=== PATIENT | female | born 1955 | race Caucasian/White ===

== ENCOUNTER → 2021-06-13 04:05 | Outpatient (CLI) | payer MEDICARE, SELFPAY ==
[2021-06-13 12:40] LABS: Influenza Control Positive
[2021-06-13 19:27] LABS: SARS-CoV-2 RNA PCR Negative
== END ==
PROVIDERS: PCP Internal Medicine; Visit Provider Internal Medicine
DX: R68.89 Other general symptoms and signs (principal); Z20.822 Contact with and (suspected) exposure to COVID-19
CPT/HCPCS: 87804; C9803; U0003; U0005

== ENCOUNTER → 2022-08-24 14:41 | Outpatient (CLI) | payer MEDICARE, SELFPAY ==
--- NOTE | ~2022-08-24 | MM_ITS ---
EXAMINATION: MM screening alisa BI w gordon HISTORY: Screening mammogram TECHNIQUE: Craniocaudal and mediolateral oblique 3-D tomosynthesis images were obtained and synthetic 2-D images were generated. Bilateral rotated lateral CC views. CAD analysis was submitted and inter preted. COMPARISON: No prior mammogram is available for comparison at this institution. BREAST PARENCHYMAL COMPOSITION: The breasts are extremely dense, which lowers the sensitivity of mamm ography. FINDINGS: There is no evidence of suspicious mass, calcification, or architectural distortion to sugg est malignancy in either breast. There has been no suspicious interval change. IMPRESSION: 1. No mammographic evidence of malignancy. 2. Recommend routine screening mammography in one year. Close correlation with physical examination is important considering the very dense fibroglandular stroma. Ultrasound examination may be of melisa tional benefit. BI-RADS Category 1: Negative Reviewed, dictated and finalized at location A. HOMETRIC EXAMINER IMPRESSION: 1. No mammographic evidence of malignancy. 2. Recommend routine screening mammography in one year. Close correlation with physical examination is important considering the very dense fibroglandular st guilherme. Ultrasound examination may be of additional benefit. BI-RADS Category 1: Negative
== END ==
PROVIDERS: PCP Internal Medicine; Visit Provider Nurse Practitioner
DX: Z12.31 Encounter for screening mammogram for malignant neoplasm of breast (principal)
CPT/HCPCS: 77063; 77067

== ENCOUNTER 2022-10-12 10:51 | Emergency (ER) | payer MEDICARE, SELFPAY ==
--- NOTE | 2022-10-12 10:56 | ED.FEMALEGU ---
HPI - Female Genitourinary General Chief complaint: Urogenital-Female Stated complaint: UTI SYMPTOMS Time Seen by Provider: 10/12/22 11:18 Source: patient and RN notes reviewed Mode of arrival: ambulatory Limitations: no limitations History of Present Illness HPI Narrative: 67-year-old female presents with concern for dysuria, frequency and hematuria. Reports symptoms started on . She denies back pain, abdominal pain, nausea, vomiting, fever, aches, chills. She denies taking any [id number]-dge-ftocbjo medications for her symptoms MD elicited complaint: UTI Related Data Home Medications Medication Instructions Recorded Confirmed cholecalciferol (vitamin D3) 50 2,000 unit PO DAILY 06/21/19 04/15/22 mcg (2,000 unit) tablet duloxetine 60 mg capsule,delayed 60 mg PO DAILY 06/21/19 04/15/22 release lamotrigine 100 mg tablet 100 mg PO DAILY 06/21/19 04/15/22 multivitamin (Daily Multi-Vitamin 1 tablet PO DAILY 11/24/19 04/15/22 tablet) bupropion HCl 150 mg 24 hr tablet, 150 mg PO QAM 10/06/21 04/15/22 extended release methylphenidate HCl 18 mg 18 mg PO DIRECTED 10/12/22 10/12/22 tablet,extended release 24 hr Allergies Allergy/AdvReac Type Severity Reaction Status Date / Time Penicillins Allergy Unknown Hives Verified 10/12/22 11:10 Review of Systems Review of Systems: CONSTITUTIONAL: Denies malaise, chills, sweats, or fever. CARDIOVASCULAR: Denies chest pain, palpitations, or edema. RESPIRATORY: Denies cough or dyspnea. GASTROINTESTINAL: Denies abdominal pain, nausea, vomiting, diarrhea GENITOURINARY: Reports dysuria, frequency, hematuria. Denies urgency, suprapubic pressure. Denies flank pain SKIN: Denies rash or itching. MUSCULOSKELETAL: Denies back pain or myalgia. All systems reviewed & are unremarkable except as noted in HPI and below PMFSH Past Medical History Medical History (Updated 10/12/22 @ 11:26 by Annamarie Hutton NP) Cubital tunnel syndrome on left Family History Family History Father Hypertension Sibling Family history of lupus erythematosus Family history of malignant neoplasm of breast in first degree relative Mother Family history of mental disorder Patient's mother is in good health Other Family history of elevated blood lipids Family history of multiple sclerosis Social History Social History Smoking packs per day: 1 Smoking cigarettes per day: 20.0 Years smoked: 12 Smoking pack-years: 12.00 Smoking status: Former smoker Second hand tobacco smoke exposure: No Smoking end date: 07/05/87 Alcohol intake: never Substance use: former Substance use type: marijuana Other substance usage details: had to stop in order to get Adderall Last use: end of January Comments At time of signature, agree with nursing past medical, surgical, social and family history. There is no relevant family history pertinent to the presenting complaint Exam Narrative: GENERAL: Well-appearing, well-nourished, and in no acute distress. HEAD: Normocephalic. EYES: PERRLA, conjunctivae clear. NECK: Supple. No lymphadenopathy CHEST: Clear to auscultation. No respiratory distress. HEART: Regular rate and rhythm. ABDOMEN: Soft, nontender upon palpation, nondistended, normal active bowel sounds, no palpable or pulsatile masses, no guarding. No CVA tenderness SKIN: Warm, dry, no rash. NEURO: Alert and oriented x3. PSYCH: Normal mood and affect Course Course Emergency Course: Patient is aware of diagnosis, understands and agrees to treatment plan. Anticipatory guidance given. Patient agrees to follow-up as directed and is aware of reasons to seek care at the emergency department. Portions of this record may have been created with voice recognition software Level of Care: Express Care Visit Vital Signs Vital signs: Reviewed. SHARMAINE - F
[2022-10-12 11:08] VITALS: BP 131/88; PULSE 76; RESP 16; TEMP 36.8; O2SAT 100
== END 2022-10-12 11:34 | disposition home or self-care (01) ==
PROVIDERS: Emergency Provider Nurse Practitioner; PCP Internal Medicine
DX: R30.0 Dysuria (principal); R35.0 Frequency of micturition; R31.9 Hematuria, unspecified; Z87.891 Personal history of nicotine dependence
CPT/HCPCS: 81003; 87086; 99213; G0463

== ENCOUNTER 2023-02-01 12:02 | Emergency (ER) | payer MEDICARE, SELFPAY ==
--- NOTE | ~2023-02-01 | XR_ITS ---
EXAMINATION: XR lumbar spine 2-3V DATE: 02/01/2023 12:38 INDICATION: Right lower back pain one week post fall TECHNIQUE: Anteroposterior and lateral views of the lumbar spine, and cone-down lateral view of the l umbosacral junction were obtained. COMPARISON: CT abdomen pelvis dated 03/16/2015 FINDINGS: Mild thoracolumbar levocurvature. Additional unchanged mild lower lumbar levocurvature. Sagittal alig nment is normal. Age-indeterminate L1 compression fracture with superior endplate depression resultin g one third vertebral body height loss. Severe disc height loss at L4-L5. Moderate disc height loss a t L5-S1 and T8-T9 through T11-T12. Mild disc height loss at L3-L4. Mild bilateral sacroiliac osteoart hritis. Visualized lung bases are clear. IMPRESSION: 1. Age-indeterminate L1 compression fracture with one third vertebral body height loss. 2. Moderate lower thoracic and severe lower lumbar spondylosis. Reviewed, dictated and finalized at location B. IMPRESSION: 1. Age-indeterminate L1 compression fracture with one third vertebral body heig ht loss. 2. Moderate lower thoracic and severe lower lumbar spondylosis.
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
[2023-02-01 12:17] VITALS: BP 124/85; PULSE 70; RESP 16; TEMP 36.4; O2SAT 99
== END 2023-02-01 14:04 | disposition home or self-care (01) ==
PROVIDERS: Emergency Provider Registered Nurse; PCP Family Medicine
DX: S32.019A Unspecified fracture of first lumbar vertebra, initial encounter for closed fracture (principal); S39.012A Strain of muscle, fascia and tendon of lower back, initial encounter; W19.XXXA Unspecified fall, initial encounter; Y93.19 Activity, other involving water and watercraft; Z87.891 Personal history of nicotine dependence; I10 Essential (primary) hypertension; E78.2 Mixed hyperlipidemia; G35 Multiple sclerosis; F90.9 Attention-deficit hyperactivity disorder, unspecified type; F32.A Depression, unspecified; M81.8 Other osteoporosis without current pathological fracture
CPT/HCPCS: 72100; 99213; G0463

== ENCOUNTER → 2023-02-05 14:10 | Outpatient (CLI) | payer MEDICARE, SELFPAY ==
--- NOTE | ~2023-02-05 | MR_ITS ---
EXAMINATION: MR lumbar spine wo con DATE: 02/05/2023 14:41 INDICATION: Wedge compression fracture of first lumbar vertebra. Low back pain. TECHNIQUE: Magnetic resonance imaging (MRI) of the lumbar spine was performed without intravenous con trast. Sequences included sagittal T2-weighted FSE, sagittal T2-weighted FS FSE, sagittal T1-weighted FSE, and axial T2-weighted FSE. COMPARISON: Lumbar spine radiographs 02/01/2023, CT abdomen and pelvis 03/16/2015 FINDINGS: There is 6 degrees levocurvature of lumbar spine. There is a burst fracture of L1 with 2/5 loss of height centrally, bone marrow edema, and retropulsion of bone 1 mm into central spinal canal. There is mild chronic anterior wedging of T11 vertebral body. There is severely decreased disc heigh t at T11-T12, L4-L5, and L5-S1 with endplate remodeling. There is mildly decreased disc height at L3- L4. The distal spinal cord signal intensity is normal. The conus medullaris is at L1. The following d isc levels are specifically discussed: L1-L2: The disc does not extend beyond the endplate margin. There is mild bilateral facet joint osteo arthritis. There is no neural foraminal stenosis. There is no central canal stenosis. L2-L3: The disc is mildly bulging. There is moderate bilateral facet joint osteoarthritis. There is m ild bilateral neural foraminal stenosis. There is no central canal stenosis. L3-L4: There is a left foraminal protrusion with annular fissure. There is mild bilateral facet joint osteoarthritis. There is mild left neural foraminal stenosis. There is no central canal stenosis. L4-L5: The disc is bulging. There is moderate bilateral facet joint osteoarthritis. There is mild [place]olina ateral neural foraminal stenosis. There is mild central canal stenosis. L5-S1: The disc is bulging and has an annular fissure. There is severe bilateral facet joint osteoart hritis. There is mild bilateral neural foraminal stenosis. There is mild central canal stenosis. IMPRESSION: 1. Acute/subacute L1 burst fracture, stable from 02/01/2023. 2. Severe lumbar spondylosis. Reviewed, dictated and finalized at location B.
== END ==
PROVIDERS: PCP Family Medicine; Visit Provider Nurse Practitioner
DX: S32.010A Wedge compression fracture of first lumbar vertebra, initial encounter for closed fracture (principal); M43.06 Spondylolysis, lumbar region
CPT/HCPCS: 72148

== ENCOUNTER 2023-05-17 13:51 | Outpatient (CLI) | payer MEDICARE, SELFPAY ==
[2023-05-17 14:49] LABS: Parathyroid Intact 83.5 pg/mL (7.5-53.5)
== END 2023-05-17 13:52 | disposition home or self-care (01) ==
PROVIDERS: PCP Nurse Practitioner; Visit Provider Nurse Practitioner
DX: E83.52 Hypercalcemia (principal)
CPT/HCPCS: 36415; 82330; 83970

== ENCOUNTER 2024-11-13 14:00 | Outpatient (CLI) | payer MEDICARE, SELFPAY ==
--- NOTE | ~2024-11-13 | MM_ITS ---
EXAMINATION: MM screening alisa BI w gordon HISTORY: Screening mammogram, family history of breast cancer in her sister. TECHNIQUE: Craniocaudal and mediolateral oblique 3-D tomosynthesis images were obtained and synthetic 2-D images were generated. CAD analysis was submitted and interpreted. COMPARISON: 08/24/2022 BREAST PARENCHYMAL COMPOSITION:Dense: The breasts are extremely dense, which lowers the sensitivity o f mammography. FINDINGS: No suspicious mass, calcification, or architectural distortion are identified in either daria ast to suggest malignancy. There has been no suspicious interval change. IMPRESSION: No mammographic evidence of malignancy. Recommend routine screening mammography in one year. BI-RADS Category 1: Negative Reviewed, dictated and finalized at location .
--- OUTSIDE RECORDS SUMMARY | 2024-11-13 14:06 | XMS_ITS | Encounter Summary ---
Author Organization [facility] Address [address] [place] [address] Phone Care Team Providers Care Curtain Cleaner Name Role Phone Kailash Webb MD Primary Care Provider [phone] Iban Jeffery MD Primary Care Provider [phone] Higinio Barnes MD Primary Care Provider [phone] Encounter Details Date Type Department Care Team (Latest Contact Info) Description 12/28/2018 Orders Only [facility] Scanning, Provider Social History Tobacco Use Types Packs/Day Years Used Date Smoking Tobacco: Former Smokeless Tobacco: Never Alcohol Use Standard Drinks/Week Comments No 0 (1 standard drink = 0.6 oz pur e alcohol) Comments No Sex and Gender Information Value Date Recorded Sex Assigned at Not on file Legal Sex Female 12:30 AM [employer] Gender Identity Female 03/30/2023 12:11 PM CDT Sexual Orientation Straight 03/30/2023 12 :11 PM CDT documented as of this encounter Plan of Treatment Not on file documented as of this encounter Procedures Procedure Name Priority Date/Time Associated Diagnosis Comments SCAN - LABS 12/28/2018 documented in this encounter Results * SCAN - LABS (12/28/2018) us Provider Scanning Final Result documented in this encounter Visit Diagnoses Not on filedocumented in this encounter Care Teams Curtain Cleaner Relationship Specialty Start Date End Date Kailash Webb MD [address] [place] [address] PCP - General 09/21/17 06/11/19 Iban Jeffery MD [address] [facility] [address] [place] [address] PCP - General 06/12/19 03/07/24 Higinio Barnes MD [address] [facility] [address] [place] [address] PCP - General Family Practice 03/08/24 documented as of this encounter
--- OUTSIDE RECORDS SUMMARY | 2024-11-13 14:06 | XMS_ITS | Patient Health Record ---
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 Role Phone Higinio Barnes MD Primary Care Provider UnavailFrancois Hay Unavailable [phone] Jeri Palafox Unavailable [phone] Arely Sánchez Unavailable [phone] Migration, Provider Unavailable Unavailable Allergies Allergen (clinical drug ingredient) Drug/Non Drug Allergy documented on EMR Reaction Allergy Type Onset Date Status Substance with penicillin structure and antibacterial mechanism of action (substance) Penicillins Unknown Drug Allergy 08/10/2023 Active Results Component Value Reference Range Notes DRUG SCREEN, 14 DRUGS (DETEC TIMED), URINE Reviewed date:11/17/2023 12:00:00 AM Interpretation: Performing Lab: Notes/Report: Amphetamine positive Barbiturates negative Benzodiazipine negative Buprenorphine negative Cocaine negative MDMA/Ectasy negative Methadone negative Methamphetamine negative Morphine negative note +thc +amp Oxycodone negative Phenocyclidine negative THC positive UDT Reviewed date:02/28/2024 11:17:23 AM Interpretation: Performing Lab: Notes/Report: THC Negative 0 - 50 ng/ml Cocaine Negative 0 - 300 ng/ml Amphetamine Negative 0 - 1000 ng/ml Buprenorphine (BUP) Negative 0 - 10 ng/ml Secobarbital (Bar) Negative 0 - 300 ng/ml Oxazepam (BZO) Negative 0 - 300 ng/ml 4-qptkzobofb-5,9-ivdnpmqa-9, 3-diphenylpyrrolidine (EDDP) Negative 0 - 300 ng/ml Methamphetamine (MET) Negative 0 - 1000 ng/ml Methylenedioxymethamphetamine (MDMA) Negative 0 - 500 ng/ml Morphine (MOP 300/[id number]) Negative 0 - 300 ng/ml Methadone (MTD) Negative 0 - 300 ng/ml Phencyclidine (PCP) Negative 0 - 25 ng/ml Nortriptyline (TCA) Negative 0 - 1000 ng/ml Oxycodone Negative 0 - 300 ng/ml x Negative 0 - 300 ng/ml UDT Reviewed date:08/17/2024 01:20:24 PM Interpretation: Performing Lab: Notes/Report: THC P 0 - 50 ng/ml Cocaine N 0 - 300 ng/ml Amphetamine P 0 - 1000 ng/ml Buprenorphine (BUP) N 0 - 10 ng/ml Secobarbital (Bar) N 0 - 300 ng/ml Oxazepam (BZO) N 0 - 300 ng/ml 5-lvwikkmkpw-7,9-rgfbbjhy-2, 3-diphenylpyrrolidine (EDDP) N 0 - 300 ng/ml Methamphetamine (MET) N 0 - 1000 ng/ml Methylenedioxymethamphetamine (MDMA) N 0 - 500 ng/ml Morphine (MOP 300/[id number]) N 0 - 300 ng/ml Methadone (MTD) N 0 - 300 ng/ml Phencyclidine (PCP) N 0 - 25 ng/ml Nortriptyline (TCA) N 0 - 1000 ng/ml Oxycodone N 0 - 300 ng/ml x N 0 - 300 ng/ml Reason For Referral No Information Medications Medication SIG (Take, Route, Frequency, Duration) Notes Start Date End Date Status DULoxetine HCl 60 MG 1 capsule Oral Once a day for 90 days Active buPROPion HCl ER (XL) 150 MG 1 tablet in the morning Oral Once a day for 90 days Active buPROPion HCl ER (XL) 150 MG 1 tablet every morning Oral Once a day for 90 days Active amLODIPine Besylate 2.5 MG Oral 11/17/2023 Active Amphetamine-Dextroamphet ER 15 MG 1 capsule in the morning Orally Once a day for 30 days 10/13/2024 Active Atorvastatin Calcium 20 MG Oral 11/17/2023 Active Losartan Potassium-HCTZ 100-12.5 MG Oral 11/17/2023 Active Famotidine 20 MG Oral 11/17/2023 Ac tive Ibuprofen 600 MG Oral 11/17/2023 Ac tive Forteo 600 MCG/2.4ML as directed Subcutaneous 02/03 Active Amphetamine-Dextroamphet ER 15 MG 1 capsule in the morning Orally Once a day for 30 days 06/12/2024 Active lamoTRIgine 100 MG 1 tablet Oral Once a day for 90 days Active Social History Sex Assigned At : Social History Observation Description Sex Assigned At Female Problems Problem Type SNOMED Code ICD Code Onset Dates Problem Status W/U Status Risk Notes Problem Mild recurrent major depression (29206781) Major depressive disorder, recurrent, mild (F33.0) 4 Active confirmed Problem Generalized anxiety disorder (65581684) Generalized anxiety disorder (F41.1) 4 Active confirmed Problem Attention-defici t hyperactivity disorder, 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 Active confirmed Vital Signs Heart Rate 100 /min 08/17/2024 Height-cm 157.48 cm 08/17/2024 Blood pressure diastolic 73 mm Hg 08/17/2024 Weight-kg 56.25 kg 08/17/2024 Height 62.00 in 08/17/2024 Blood pressure systolic 129 mm Hg 08/17/2024 Weight 124 lbs 08/17/2024 BMI 22.68 kg/m2 08/17/2024 Encounters Encounter Location Date Provider Diagnosis [facility] [address] [place] [address] 11/17/2023 Francois Lopez Generalized anxiety disorder F41.1 ; Major depressive disorder, recurrent, mild F33.0 and Attention-deficit hyperactivity disorder, predominantly inattentive type F90.0 [facility] [address] [place] [address] 02/28/2024 Francois Lopez Generalized anxiety disorder F41.1 ; Major depressive disorder, recurrent, mild F33.0 and Attention-deficit hyperactivity disorder, predominantly inattentive type F90.0 [facility] [address] [place] [address] 05/18/2024 Francois Lopez Generalized anxiety disorder F41.1 ; Major depressive disorder, recurrent, mild F33.0 and Attention-deficit hyperactivity disorder, predominantly inattentive type F90.0 [facility] [address] [place] [address] 08/17/2024 Francois Lopez Benign essential HTN I10 ; Generalized anxiety disorder F41.1 ; Major depressive disorder, recurrent, mild F33.0 and Attention-deficit hyperactivity disorder, predominantly inattentive type F90.0 [facility], [facility] [address] [place] [address] 11/20/2023 Provider Migration [facility], [facility] [address] [place] [address] 11/21/2023 Provider Migration [facility], [facility] [address] [place] [address] 01/04/2024 Francois Lopez [facility], [facility] [address] [place] [address] 01/07/2024 Arely Sánchez [facility], [facility] [address] [place] [address] 01/07/2024 Francois Lopez [facility], [facility] [address] [place] [address] 01/10/2024 Jeri Javy Attention-deficit hyperactivity disorder, unspecified type F90.9 [facility], [facility] [address] [place] [address] 02/08/2024 Francois Lopez Attention-deficit hyperactivity disorder, predominantly inattentive type F90.0 [facility], [facility] [address] [place] [address] 03/09/2024 Francois Lopez Attention-deficit hyperactivity disorder, predominantly inattentive type F90.0 [facility], [facility] [address] [place] [address] 04/07/2024 Francois Lopez Attention-deficit hyperactivity disorder, predominantly inattentive type F90.0 [facility], [facility] [address] [place] [address] 05/09/2024 Francois Lopez Attention-deficit hyperactivity disorder, predominantly inattentive type F90.0 [facility], [facility] [address] [place] [address] 06/09/2024 Francois Lopez Attention-deficit hyperactivity disorder, predominantly inattentive type F90.0 [facility], [facility] [address] [place] [address] 07/13/2024 Jeri Javy Attention-deficit hyperactivity disorder, predominantly inattentive type F90.0 [facility] [employer] [facility] [address] [place] [address] 08/14/2024 Francois Lopez Attention-deficit hyperactivity disorder, predominantly inattentive type F90.0 [facility] [address] [place] [address] 09/11/2024 Francois Lopez Attention-deficit hyperactivity disorder, predominantly inattentive type F90.0 [facility] [address] [place] [address] 10/13/2024 Francois Hernandeza Attention-deficit hyperactivity disorder, predominantly inattentive type F90.0 Assessments Encounter Date Diagnosis (ICD Code) Assessment Notes Treatment Notes Treatment Clinical Notes Section Notes 04/07/2024 Attention-defici t hyperactivity disorder, predominantly inattentive type (ICD-10 - F90.0) 05/09/2024 Attention-defici t hyperactivity disorder, predominantly inattentive type (ICD-10 - F90.0) 06/09/2024 Attention-defici t hyperactivity disorder, predominantly inattentive type (ICD-10 - F90.0) 07/13/2024 Attention-defici t hyperactivity disorder, predominantly inattentive type (ICD-10 - F90.0) 08/14/2024 Attention-defici t hyperactivity disorder, predominantly inattentive type (ICD-10 - F90.0) 02/28/2024 Generalized anxiety disorder (ICD-10 - F41.1) stable 1. ADHD: - Patient reports improvement in focus and reduced feelings of depression with Adderall XR 15 mg daily. Plan: - Continue Adderall XR 15 mg daily. No refill needed at this time. 2. Anxiety: - Patient experiences more anxiety than depression, worrying about things they cannot control and second-guessi ng themselves. Plan: - Monitor anxiety levels during follow-up visits. Consider discussing non-pharmacol ogical interventions such as therapy or relaxation techniques if needed. 3. Major Depressive Disorder: - Patient is currently on Bupropion XL 150 mg, Duloxetine 60 mg, and Lamotrigine 100 mg daily. Plan: - Continue current medications. Refill Bupropion XL 150 mg, Duloxetine 60 mg, and Lamotrigine 100 mg prescriptions . 4. Sleep: - Patient reports sleeping well but identifies as a night owl. Plan: - Encourage maintaining good sleep hygiene and discuss any sleep concerns during follow-up visits. Follow-up: - Schedule a three-month follow-up visit to assess the patient's progress, medication effectiveness , and address any concerns. 05/18/2024 Generalized anxiety disorder (ICD-10 - F41.1) stable 1. Depression and Anxiety: - Patient reports feeling well mood-coelho and has not experienced significant depression or anxiety recently. - Current medications: Bupropion XL 150 mg daily, Duloxetine 60 mg daily, Lamotrigine 100 mg daily. Plan: - Continue current medications as they seem to be effective. - Monitor patient's mood and anxiety levels during follow-up visits. 2. ADHD: - Patient reports that Adderall XR 15 mg is working well for ADHD symptoms. Plan: - Continue Adderall XR 15 mg as prescribed. - Monitor patient's response to medication and any potential side effects during follow-up visits. 3. Recent physical injuries (shoulder, arm, knee): - Patient reports having had therapy for shoulder issues and a recent fall resulting in minor injuries to the arm and knee. Plan: - Encourage patient to continue any recommended physical therapy or home exercises for shoulder recovery. - Monitor patient's progress and pain levels during follow-up visits. 4. Medication refills: Plan: - Refill Bupropion XL 150 mg and Duloxetine 60 mg prescriptions . - Send refills to [facility] in [place]. 5. Follow-up: Plan: - Schedule a follow-up appointment to monitor patient's mood, anxiety, ADHD symptoms, and progress with physical injuries. - Adjust treatment plan as needed based on patient's progress and any new concerns that may arise. 08/17/2024 Benign essential HTN (ICD-10 - I10) 09/11/2024 Attention-defici t hyperactivity disorder, predominantly inattentive type (ICD-10 - F90.0) 10/13/2024 Attention-defici t hyperactivity disorder, predominantly inattentive type (ICD-10 - F90.0) 03/09/2024 Attention-defici t hyperactivity disorder, predominantly inattentive type (ICD-10 - F90.0) 11/17/2023 Major depressive disorder, recurrent, mild (ICD-10 - F33.0) 11/17/2023 Generalized anxiety disorder (ICD-10 - F41.1) 11/17/2023 Attention-defici t hyperactivity disorder, predominantly inattentive type (ICD-10 - F90.0) 01/10/2024 Attention-defici t hyperactivity disorder, unspecified type (ICD-10 - F90.9) 02/08/2024 Attention-defici t hyperactivity disorder, predominantly inattentive type (ICD-10 - F90.0) 02/28/2024 Major depressive disorder, recurrent, mild (ICD-10 - F33.0) stable cont lamotrigine 100mg 1 tablet at bedtime , duloxetine 60mg daily, bupropion xl 150mg daily Plasma concentrations and pharmacologic effects of duloxetine may be increased by strong CYP2D6 inhibitors (eg, buPROPion HCl ER (XL) Oral Tablet Extended Release 24 Hour 150 MG). 1. ADHD: - Patient reports improvement in focus and reduced feelings of depression with Adderall XR 15 mg daily. Plan: - Continue Adderall XR 15 mg daily. No refill needed at this time. 2. Anxiety: - Patient experiences more anxiety than depression, worrying about things they cannot control and second-guessi ng themselves. Plan: - Monitor anxiety levels during follow-up visits. Consider discussing non-pharmacol ogical interventions such as therapy or relaxation techniques if needed. 3. Major Depressive Disorder: - Patient is currently on Bupropion XL 150 mg, Duloxetine 60 mg, and Lamotrigine 100 mg daily. Plan: - Continue current medications. Refill Bupropion XL 150 mg, Duloxetine 60 mg, and Lamotrigine 100 mg prescriptions . 4. Sleep: - Patient reports sleeping well but identifies as a night owl. Plan: - Encourage maintaining good sleep hygiene and discuss any sleep concerns during follow-up visits. Follow-up: - Schedule a three-month follow-up visit to assess the patient's progress, medication effectiveness , and address any concerns. 08/17/2024 Generalized anxiety disorder (ICD-10 - F41.1) stable 05/18/2024 Major depressive disorder, recurrent, mild (ICD-10 - F33.0) stable cont lamotrigine 100mg 1 tablet at bedtime , duloxetine 60mg daily, bupropion xl 150mg daily Plasma concentrations and pharmacologic effects of duloxetine may be increased by strong CYP2D6 inhibitors (eg, buPROPion HCl ER (XL) Oral Tablet Extended Release 24 Hour 150 MG). 1. Depression and Anxiety: - Patient reports feeling well mood-coelho and has not experienced significant depression or anxiety recently. - Current medications: Bupropion XL 150 mg daily, Duloxetine 60 mg daily, Lamotrigine 100 mg daily. Plan: - Continue current medications as they seem to be effective. - Monitor patient's mood and anxiety levels during follow-up visits. 2. ADHD: - Patient reports that Adderall XR 15 mg is working well for ADHD symptoms. Plan: - Continue Adderall XR 15 mg as prescribed. - Monitor patient's response to medication and any potential side effects during follow-up visits. 3. Recent physical injuries (shoulder, arm, knee): - Patient reports having had therapy for shoulder issues and a recent fall resulting in minor injuries to the arm and knee. Plan: - Encourage patient to continue any recommended physical therapy or home exercises for shoulder recovery. - Monitor patient's progress and pain levels during follow-up visits. 4. Medication refills: Plan: - Refill Bupropion XL 150 mg and Duloxetine 60 mg prescriptions . - Send refills to [facility] in [place]. 5. Follow-up: Plan: - Schedule a follow-up appointment to monitor patient's mood, anxiety, ADHD symptoms, and progress with physical injuries. - Adjust treatment plan as needed based on patient's progress and any new concerns that may arise. 02/28/2024 Attention-defici t hyperactivity disorder, predominantly inattentive type (ICD-10 - F90.0) Adderall xr 15mg daily 1. ADHD: - Patient reports improvement in focus and reduced feelings of depression with Adderall XR 15 mg daily. Plan: - Continue Adderall XR 15 mg daily. No refill needed at this time. 2. Anxiety: - Patient experiences more anxiety than depression, worrying about things they cannot control and second-guessi ng themselves. Plan: - Monitor anxiety levels during follow-up visits. Consider discussing non-pharmacol ogical interventions such as therapy or relaxation techniques if needed. 3. Major Depressive Disorder: - Patient is currently on Bupropion XL 150 mg, Duloxetine 60 mg, and Lamotrigine 100 mg daily. Plan: - Continue current medications. Refill Bupropion XL 150 mg, Duloxetine 60 mg, and Lamotrigine 100 mg prescriptions . 4. Sleep: - Patient reports sleeping well but identifies as a night owl. Plan: - Encourage maintaining good sleep hygiene and discuss any sleep concerns during follow-up visits. Follow-up: - Schedule a three-month follow-up visit to assess the patient's progress, medication effectiveness , and address any concerns. 08/17/2024 Major depressive disorder, recurrent, mild (ICD-10 - F33.0) stable cont lamotrigine 100mg 1 tablet at bedtime , duloxetine 60mg daily, bupropion xl 150mg daily Plasma concentrations and pharmacologic effects of duloxetine may be increased by strong CYP2D6 inhibitors (eg, buPROPion HCl ER (XL) Oral Tablet Extended Release 24 Hour 150 MG). 05/18/2024 Attention-defici t hyperactivity disorder, predominantly inattentive type (ICD-10 - F90.0) Adderall xr 15mg daily 1. Depression and Anxiety: - Patient reports feeling well mood-coelho and has not experienced significant depression or anxiety recently. - Current medications: Bupropion XL 150 mg daily, Duloxetine 60 mg daily, Lamotrigine 100 mg daily. Plan: - Continue current medications as they seem to be effective. - Monitor patient's mood and anxiety levels during follow-up visits. 2. ADHD: - Patient reports that Adderall XR 15 mg is working well for ADHD symptoms. Plan: - Continue Adderall XR 15 mg as prescribed. - Monitor patient's response to medication and any potential side effects during follow-up visits. 3. Recent physical injuries (shoulder, arm, knee): - Patient reports having had therapy for shoulder issues and a recent fall resulting in minor injuries to the arm and knee. Plan: - Encourage patient to continue any recommended physical therapy or home exercises for shoulder recovery. - Monitor patient's progress and pain levels during follow-up visits. 4. Medication refills: Plan: - Refill Bupropion XL 150 mg and Duloxetine 60 mg prescriptions . - Send refills to [facility] in [place]. 5. Follow-up: Plan: - Schedule a follow-up appointment to monitor patient's mood, anxiety, ADHD symptoms, and progress with physical injuries. - Adjust treatment plan as needed based on patient's progress and any new concerns that may arise. 08/17/2024 Attention-defici t hyperactivity disorder, predominantly inattentive type (ICD-10 - F90.0) Adderall xr 15mg daily 08/17/2024 Other 1. Anxiety: - No significant changes in anxiety symptoms - Currently on duloxetine 60 mg daily Plan: - Continue current medication regimen - Encourage the patient to practice relaxation techniques and engage in regular physical activity - Reassess anxiety symptoms at the next visit 2. Depression: - No significant depressive symptoms reported - Currently on lamotrigine 100 mg daily Plan: - Continue current medication regimen - Monitor for any changes in mood or new symptoms at the next visit 3. Sleep disturbance: - Likely related to a recent cold Plan: - Encourage the patient to practice good sleep hygiene and monitor for any persistent sleep issues - Reassess sleep quality at the next visit 4. ADHD: - Patient reports good response to Adderall XR 15 mg daily Plan: - Continue current medication regimen - Monitor for any changes in symptoms or side effects at the next visit 6. Positive THC on UDS: - Patient reports last use around New Year's Plan: - Send the sample for confirmation testing - Remind the patient of the clinic's policy regarding stimulant prescriptions and cannabis use - Monitor for any changes in substance use at the next visit Follow-up: - Schedule a follow-up appointment in 3 months to reassess the patient's overall health and response to treatment Plan Of Treatment Next Appt Details Provider Name:Francois granados, 11/23/2024 11:45:00 AM, [address] [facility] [address], [place], [address], Insurance Providers Payer Name Payer Address Payer Phone Subscriber Number Group Number Insured Name Patient Relationship to Insured Coverage Start Date Coverage End Date Medicare-I l Medicare [address] [place] [address] [id number] MEGHAN JUNG Self - patient is the insured [employer] [employer] [address] [place] [address] [id number] MEGHAN JUNG Self - patient is the insured Medical (General) History Medical History History ICD Code Problems: Attention deficit hyperactivit y disorder Attention deficit hyperactivity disorder , predominantly inattentive type Generalized anxiety disorder Long-term current use of drug therapy Long-term drug therapy Mild recurrent major depression , Surgical History Surgery Date(Month/Year) Other
--- OUTSIDE RECORDS SUMMARY | 2024-11-13 14:06 | XMS_ITS | Clinical Summary ---
Author Organization [facility] Address [address] Attn: Teresita Prelusera [place]T [place] [address] Care Team Providers Care Supply Chain Assistant Name Role Phone Unavailable Primary Care Provider Unavailabl e Allergies Active Allergy Reactions Criticality Noted Date Comments Penicillins Unknown 11/16/2021 Medications buPROPion HCL (WELLBUTRIN XL) 150 mg Extended Release 24 hour tablet Take 1 Tablet (150 mg) by mouth daily in the morning. 30 Tablet 3 05/09/2022 12:20 PM CDT 2 Active DULoxetine (Cymbalta) 60 mg Capsule, Delayed Release(E.C.) Take 1 Capsule (60 mg) by mouth daily. 30 Capsule 3 02/05/2022 12:48 PM CDT 2 Active lamoTRIgine (LaMICtal) 100 mg tablet Take 1 Tablet (100 mg) by mouth daily. 30 Tablet 3 05/26/2022 11:59 AM BLEMISH REMOVER 2 Active buPROPion HCL (WELLBUTRIN XL) 150 mg Extended Release 24 hour tablet Take 1 Tablet (150 mg) by mouth daily in the morning. 30 Tablet 3 10/02/2022 2:50 PM CDT 2 Active DULoxetine (Cymbalta) 60 mg Capsule, Delayed Release(E.C.) Take 1 Capsule (60 mg) by mouth daily. 30 Capsule 3 04/21/2022 5:20 PM CDT 2 Active losartan-hydroC HLOROthiazide (HYZAAR) 100-12.5 mg tablet Take 1 Tablet by mouth daily. 90 Tablet 1 07/02/2022 12:11 PM BLEMISH REMOVER 2 Active buPROPion HCL (WELLBUTRIN XL) 150 mg Extended Release 24 hour tablet Take 1 Tablet (150 mg) by mouth daily in the morning. 30 Tablet 3 04/28/2023 2:43 PM CDT 2 Active DULoxetine (CYMBALTA) 60 mg Capsule, Delayed Release(E.C.) Take 1 Capsule (60 mg) by mouth daily. 30 Capsule 3 08/16/2022 12:21 PM BLEMISH REMOVER 2 Active lamoTRIgine (LaMICtal) 100 mg tablet Take 1 Tablet (100 mg) by mouth daily. 30 Tablet 3 08/25/2022 3:31 PM BLEMISH REMOVER 2 Active amphetamine-dex troamphetamine (ADDERALL XR) 15 mg Extended Release 24 hour capsule Take 1 Capsule (15 mg) by mouth daily in the morning. 30 Capsule 3 Active methylphenidate HCl (Concerta) 18 mg Extended Release tablet Take 1 Tablet (18 mg) by mouth daily in the morning. Max Daily Amount: 18 mg 30 Tablet 08/30/2022 12:40 PM BLEMISH REMOVER 3 Active amLODIPine (NORVASC) 2.5 mg tablet Take 1 Tablet (2.5 mg) by mouth daily. 90 Tablet 1 3 Active atorvastatin (LIPITOR) 20 mg tablet TAKE ONE TABLET BY MOUTH ONCE DAILY 90 Tablet 1 3 Active amLODIPine (NORVASC) 2.5 mg tablet Take 1 Tablet (2.5 mg) by mouth daily. 90 Tablet 1 3 Active atorvastatin (LIPITOR) 20 mg tablet Take 1 Tablet (20 mg) by mouth daily. 90 Tablet 1 3 Active ibuprofen (MOTRIN) 600 mg tablet Take 1 Tablet (600 mg) by mouth 3 times daily as needed for pain. TAKE WITH FOOD. 90 Tablet 1 01/10/2023 3:55 PM CDT 3 Active buPROPion HCL (WELLBUTRIN XL) 150 mg Extended Release 24 hour tablet Take 1 Tablet (150 mg) by mouth daily in the morning. 30 Tablet 1 12/06/2022 1:03 PM CDT 3 Active amphetamine-dex troamphetamine (ADDERALL XR) 15 mg Extended Release 24 hour capsule Take 1 Capsule (15 mg) by mouth daily in the morning. 30 Capsule 3 Active amphetamine-dex troamphetamine (ADDERALL XR) 15 mg Extended Release 24 hour capsule Take 1 capsule every day by oral route in the morning for 30 days. 30 Capsule 11/07/2022 11:56 AM CDT 3 Active buPROPion HCL (WELLBUTRIN XL) 150 mg Extended Release 24 hour tablet Take 1 Tablet (150 mg) by mouth daily in the morning. 30 Tablet 3 01/31/2023 2:15 PM CDT 3 Active estradioL (ESTRACE) 0.01% (0.1 mg/g) vaginal cream Insert 1 gram vaginally twice weekly. 42.5 Gram 5 3 Active losartan-hydroC HLOROthiazide (HYZAAR) 100-12.5 mg tablet TAKE ONE TABLET BY MOUTH ONCE DAILY 90 Tablet 1 3 Active losartan-hydroC HLOROthiazide (HYZAAR) 100-12.5 mg tablet TAKE ONE TABLET BY MOUTH ONCE DAILY 90 Tablet 1 07/22/2023 2:57 PM BLEMISH REMOVER 3 Active cyclobenzaprine (FLEXERIL) 10 mg tablet Take 1 Tablet (10 mg) by mouth 2 times daily as needed for muscle spasm; do not drive while taking. 20 Tablet 02/01/2023 2:27 PM CDT 3 Active dextroamphetami ne-amphetamine (AdderalL) 10 mg tablet TAKE 1 TABLET BY MOUTH ONCE DAILY BEFORE BREAKFAST 30 Tablet 02/17/2023 4:29 PM CDT 3 Active dextroamphetami ne-amphetamine (AdderalL) 5 mg tablet TAKE 1 TABLET BY MOUTH IN THE EVENING 30 Tablet 02/17/2023 4:29 PM CDT 3 Active amLODIPine (NORVASC) 2.5 mg tablet Take 1 Tablet (2.5 mg) by mouth daily. 90 Tablet 1 07/12/2023 9:27 AM BLEMISH REMOVER 3 Active atorvastatin (LIPITOR) 20 mg tablet TAKE ONE TABLET BY MOUTH ONCE DAILY 90 Tablet 1 07/12/2023 9:27 AM BLEMISH REMOVER 3 Active DULoxetine (CYMBALTA) 60 mg Capsule, Delayed Release(E.C.) Take 1 Capsule (60 mg) by mouth daily. 90 Capsule 1 07/28/2023 2:15 PM BLEMISH REMOVER 3 Active ibuprofen (MOTRIN) 600 mg tablet Take 1 Tablet (600 mg) by mouth 3 times daily as needed for pain. TAKE WITH FOOD 90 Tablet 1 08/17/2023 2:45 PM BLEMISH REMOVER 3 Active buPROPion HCL (WELLBUTRIN XL) 150 mg Extended Release 24 hour tablet Take 1 Tablet (150 mg) by mouth daily in the morning. 30 Tablet 3 07/12/2023 9:27 AM BLEMISH REMOVER 3 Active lamoTRIgine (LaMICtal) 100 mg tablet Take 1 Tablet (100 mg) by mouth daily. 30 Tablet 3 07/22/2023 2:57 PM BLEMISH REMOVER 3 Active buPROPion HCL (WELLBUTRIN XL) 150 mg Extended Release 24 hour tablet Take 1 Tablet (150 mg) by mouth daily in the morning. 30 Tablet 3 10/08/2023 2:20 PM CDT 4 Active ibuprofen (MOTRIN) 600 mg tablet Take 1 Tablet (600 mg) by mouth 3 times daily as needed for pain. Take with food. 90 Tablet 1 11/23/2023 1:29 PM CDT 4 Active amphetamine-dex troamphetamine (ADDERALL XR) 15 mg Extended Release 24 hour capsule Take 1 Capsule (15 mg) by mouth daily in the morning. Max Daily Amount: 15 mg 30 Capsule 01/07/2024 5:22 PM CDT 4 Active amphetamine-dex troamphetamine (ADDERALL XR) 15 mg Extended Release 24 hour capsule Take 1 Capsule (15 mg) by mouth daily. Max Daily Amount: 15 mg 30 Capsule 4 Active amphetamine-dex troamphetamine (ADDERALL XR) 15 mg Extended Release 24 hour capsule Take 1 Capsule (15 mg) by mouth daily in the morning. Max Daily Amount: 15 mg 30 Capsule 4 Active amphetamine-dex troamphetamine (ADDERALL XR) 15 mg Extended Release 24 hour capsule Take 1 Capsule (15 mg) by mouth daily in the morning. Max Daily Amount: 15 mg 30 Capsule 4 Active clobetasoL (TEMOVATE) 0.05 % Ointment Apply topically 2 (two) times a day 30 Gram 1 02/24/2024 12:55 PM CDT 4 Active amphetamine-dex troamphetamine (ADDERALL XR) 15 mg Extended Release 24 hour capsule Take 1 Capsule (15 mg) by mouth daily in the morning. Max Daily Amount: 15 mg 30 Capsule 03/10/2024 3:36 PM CDT 4 Active buPROPion HCL (WELLBUTRIN XL) 150 mg Extended Release 24 hour tablet Take 1 Tablet (150 mg) by mouth daily in the morning. 90 Tablet 1 04/02/2024 12:06 PM CDT 4 Active buPROPion HCL (WELLBUTRIN XL) 150 mg Extended Release 24 hour tablet Take 1 Tablet (150 mg) by mouth daily in the morning. 90 Tablet 1 07/26/2024 3:46 PM BLEMISH REMOVER 4 Active DULoxetine (CYMBALTA) 60 mg Capsule, Delayed Release(E.C.) Take 1 Capsule (60 mg) by mouth daily. 90 Capsule 1 07/03/2024 3:43 PM BLEMISH REMOVER 4 Active lamoTRIgine (LaMICtal) 100 mg tablet Take 1 Tablet (100 mg) by mouth daily. 90 Tablet 1 08/22/2024 12:25 PM BLEMISH REMOVER 4 Active famotidine (PEPCID) 20 mg tablet Take 1 Tablet (20 mg) by mouth 2 times daily. 180 Tablet 1 09/07/2024 8:08 AM BLEMISH REMOVER 4 Active buPROPion HCL (WELLBUTRIN XL) 150 mg Extended Release 24 hour tablet Take 1 Tablet (150 mg) by mouth daily in the morning. 90 Tablet 1 5 Active lamoTRIgine (LaMICtal) 100 mg tablet Take 1 Tablet (100 mg) by mouth daily. 90 Tablet 1 5 Active DULoxetine (CYMBALTA) 60 mg Capsule, Delayed Release(E.C.) Take 1 Capsule (60 mg) by mouth daily. 90 Capsule 1 09/27/2024 7:15 PM CDT 5 Active amLODIPine (NORVASC) 2.5 mg tablet Take 1 Tablet (2.5 mg) by mouth daily. 90 Tablet 1 09/27/2024 7:15 PM CDT 5 Active atorvastatin (LIPITOR) 20 mg tablet TAKE ONE TABLET BY MOUTH ONCE DAILY 90 Tablet 1 09/27/2024 7:15 PM CDT 5 Active losartan-hydroC HLOROthiazide (HYZAAR) 100-12.5 mg tablet TAKE ONE TABLET BY MOUTH ONCE DAILY 90 Tablet 1 09/27/2024 7:15 PM CDT 5 Active amphetamine-dex troamphetamine (ADDERALL XR) 15 mg Extended Release 24 hour capsule Take 1 Capsule (15 mg) by mouth daily in the morning. Max Daily Amount: 15 mg 30 Capsule 10/13/2024 4:34 PM CDT 5 Active Social History Tobacco Use Types Packs/Day Years Used Date Smoking Tobacco: Never Assessed Comments Unknown Sex and Gender Information Value Date Recorded Sex Assigned at Not on file Legal Sex Female 3:27 PM CDT Gender Identity Not on file Sexual Orientation Not on file Plan of Treatment Health Maintenance Due Date Last Done Comments DTAP/TDAP/TD VACCINES (1 - Tdap) 1975 BREAST CANCER SCREENING 1996 COLORECTAL SCREENING 2001 Colorectal Cancer Screening 2001 FIT-DNA Q 3 years 2001 FIT/FOBT Q 1 year 2001 Flex Sig/CT Colonography Q 5 years 2001 PNEUMOCOCCAL VACCINE 50+ YEARS (1 of 1 - PCV) 08/11/19 07 ZOSTER VACCINE (1 of 2) 2006 OSTEOPOROSIS SCREENING 2021 INFLUENZA VACCINE (#1) 2024 RSV VACCINE (60+ or ) (1 - 1-dose 75+ series) 2031 Insurance RX [employer] (INTERNAL) [facility] RX [employer] RX Member Subscriber Plan / Payer (Ef fective 2024-Present) Name:Meena Klein Relation to Subscriber:Self Name:Meena Klein Subscriber ID:Not on file Payer ID:Not on file Group ID:[id number] Type:RX Commercial Address: [place]
--- OUTSIDE RECORDS SUMMARY | 2024-11-13 14:06 | XMS_ITS | Continuity of Care Document ---
Author Organization [facility] Address [address] [place] [address] [address] [place] [address] Phone Care Team Providers Care College Scouting Coordinator Name Role Phone Vazquez OD, Erickson Unavailable Unavailable Procedures Procedure Date Eye Exam & Treatment Refraction Advance Directives Directive Yes / No Effective Date File Name No Information Encounters Encounter Description Practice Location Reason(s) For Visit Diagnoses Date Provider Providers Copied on Encounter [facility], [address] [place] [address] [address], [place], [place], [id number], [place] tel:[phone] [facility] No Information Sep- 1-200 8 Vazquez OD Erickson. [address] , [address], [place], [address], [place]. tel:[phone] Family History Family Member Type Diagnosis Age [...]
--- OUTSIDE RECORDS SUMMARY | 2024-11-13 14:06 | XMS_ITS | Encounter Summary ---
Author Organization [facility] Address [address] [place] [address] Phone Care Team Providers Care Dishwasher Preparer Name Role Phone Kailash Webb MD Primary Care Provider [phone] Iban Jeffery MD Primary Care Provider [phone] Higinio Barnes MD Primary Care Provider [phone] Encounter Details Date Type Department Care Team (Latest Contact Info) Description 08/29/2018 Orders Only [facility] Scanning, Provider Social History Tobacco Use Types Packs/Day Years Used Date Smoking Tobacco: Former Smokeless Tobacco: Never Alcohol Use Standard Drinks/Week Comments No 0 (1 standard drink = 0.6 oz pur e alcohol) Comments No Sex and Gender Information Value Date Recorded Sex Assigned at Not on file Legal Sex Female 12:30 AM PAPER STEAMER Gender Identity Female 03/30/2023 12:11 PM CDT Sexual Orientation Straight 03/30/2023 12 :11 PM CDT documented as of this encounter Plan of Treatment Not on file documented as of this encounter Procedures Procedure Name Priority Date/Time Associated Diagnosis Comments SCAN - LABS 08/29/2018 documented in this encounter Results * SCAN - LABS (08/29/2018) us Provider Scanning Final Result documented in this encounter Visit Diagnoses Not on filedocumented in this encounter Care Teams Dishwasher Preparer Relationship Specialty Start Date End Date Kailash Webb MD [address] [place] [address] PCP - General 09/21/17 06/11/19 Iban Jeffery MD [address] [facility] [address] [place] [address] PCP - General 06/12/19 03/07/24 Higinio Barnes MD [address] [facility] [address] [place] [address] PCP - General Family Practice 03/08/24 documented as of this encounter
--- OUTSIDE RECORDS SUMMARY | 2024-11-13 14:06 | XMS_ITS | Referral Summary ---
Author Organization [facility] Address [address] [place] [address] Care Team Providers Care Rn Vascular Name Role Phone Higinio Barnes MD Primary Care Provider [phone] Encounters Date Type Department Care Team Description 10/10/2024 11:00 AM CDT Office Visit [facility] Multiple Sclerosis [address] [facility] 7[address] [place] [phone] René cMmullen MD Multiple sclerosis (HCC) (Primary Dx); Urinary urgency; Neurogenic bladder; Other fatigue 10/02/[address] [place] [address] Rock Neely MD from Last 3 Months Allergies Active Allergy Reactions Criticality Noted Date Comments Penicillins Rash Medium 07/16/2009 Medications atorvastatin (LIPITOR) 20 mg tablet 8 Active ADDERALL XR 15 mg 24 hr capsule [address] (CYMBALTA) 60 mg capsule 8 Active ibuprofen (ADVIL,MOTRIN) 600 mg tablet 8 Active lamoTRIgine (LaMICtal) 100 mg tablet 1.5 tablets (150 mg total) 8 Active multivitamin tabletIndications :Vitamin Deficiency Prevention Active cholecalciferol (VITAMIN D-3) 2000 unit capsule Ac tive famotidine (PEPCID) 20 mg tablet Take 1 tablet (20 mg total) by mouth 2 (two) times a day Active losartan-hydroCHL OROthiazide (HYZAAR) 100-12.5 mg per tablet 0 Active buPROPion XL (WELLBUTRIN XL) 150 mg 24 hr tablet Take 1 tablet by mouth every morning 1 Active amLODIPine (NORVASC) 2.5 mg tablet 2 Active dextroamphetamine -amphetamine (ADDERALL) 10 mg tablet 3 Active dextroamphetamine -amphetamine (ADDERALL) 5 mg tablet 3 Active pen needle, diabetic 31 gauge x 09/17 needle Use one needle daily with Forteo pen 100 each 3 3 Active clobetasoL (TEMOVATE) 0.05 % ointment Apply topically 2 (two) times a day 30 g 1 4 Active Forteo 20 mcg/dose (600mcg/2.4mL) injectionIndicati ons:Other osteoporosis without current pathological fracture Inject 0.08 mL (20 mcg total) under the skin daily 7.2 mL 3 4 04/13/20 25 Active Active Problems Problem Noted Date Diagnosed Date Compression fracture of L1 vertebra with routine healing 02/24/2024 Overview (02/24/2024): Fragility 02/2023 Cauda equina compression 02/11/2023 Overview (02/11/2023): -SUSPECTED- Based on symptoms reported during bone health evaluation Assessment & Plan (02/11/2023 2:31 PM CDT): She needs immediate evaluation. Explained to pt and and once I heard the saddle anesthesia and bowel symptoms we terminated the visit and placed in wc and sent to ER. Vaccine refused by parent 05/01/2021 Overview (05/01/2021): She declines the COVID-19 vaccine and flu shot and pneumonia shots Carpal tunnel syndrome of left wrist 09/27/2018 Well woman exam with routine gynecological exam 05/23/2018 Cervical pain (neck) 09/21/2017 Other osteoporosis without current pathological fracture 01/12/2017 Overview (02/24/2024): Bone Health Evaluation Contributing to this is the MS and we started RIS 150/mo for a 5-yr plan. 2016- 2021 But now the BMD dropped so Transition to ZOL 2022 fragility Fxr. Started TPTD 11/25 Assessment & Plan (02/24/2024 10:48 AM CDT): Continue TPTD, ca and D Assessment & Plan (02/11/2023 2:33 PM CDT): BMD slightly lower, we put visit on hold given the GUSTAVO Assessment & Plan (05/01/2021 2:30 PM CDT): We see the persistant very reduced BMD in Spine. Not much movement after 1 ZOL Rx--we wiol give another and see back 1 yr Assessment & Plan (04/25/2020 3:15 PM CDT): Start ZOL Assessment & Plan (04/13/2019 3:09 PM CDT): The T-score is still -2.5 after 2 yrs in spine flat too in the hip Assessment & Plan (03/17/2018 3:23 PM CDT): The bone mass is up sharply in the spine and about the same in the hip. We will CPM Postmenopausal status 05/20/2016 Urinary incontinence 03/20/2012 Urinary urgency 03/20/2012 Neoplasm 08/31/2011 Fatigue 09/02/2010 Multiple sclerosis 09/02/2010 Neurogenic bladder 09/02/2010 Social History Tobacco Use Types Packs/Day Years Used Date Smoking Tobacco: Former Smokeless Tobacco: Never Tobacco Cessation:Counseling Given: Not Answered Alcohol Use Standard Drinks/Week Comments No 0 (1 standard drink = 0.6 oz pur e alcohol) Personal Safety Answer Date Recorded Have you ever been in or are you currently in a harmful physical or emotional relationship or is someone making you feel afraid or unsafe? 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 Gender Identity Female 03/30/2023 12:11 PM CDT Sexual Orientation Straight 03/30/2023 12 :11 PM CDT Last Filed Vital Signs Vital Sign Reading Time Taken Comments Blood Pressure 149/80 05/03/2024 11:37 AM CDT Pulse 94 05/03/2024 11:37 AM CDT Temperature 37.4 C (99.3 F) 02/28/2024 12:28 PM CDT Respiratory Rate 20 02/28/2024 12:28 PM CDT Oxygen Saturation 97% 02/28/2024 12:28 PM CDT Inhaled Oxygen Concentration - - Weight 56.7 kg (125 lb) 05/11/2024 4:40 PM FISH HATCHERY LABORER Height 157.5 cm (5' 2 ) 05/11/2024 4:40 PM FISH HATCHERY LABORER Body Mass Index 22.86 05/11/2024 4:40 PM FISH HATCHERY LABORER Plan of Treatment Not on file Medical Devices Implanted Type Area Sas Statistical Programmer Device Identifier Shelf Expiration Date Model / Serial / Lot Vascular Access Power Port Chest Wall Procedures Procedure Name Priority Date/Time Associated Diagnosis Comments DEXA TBS AXIAL SKELETON BONE DENSITY 1 OR MORE SITES Schedule Routine, Read Routine (OP Routine) 02/24/2024 9:32 AM CDT Other osteoporosis without current pathological fracture SCREENING MAMMOGRAM BILATERAL W NUNO Schedule Routine, Read Routine (OP Routine) 06/23/2021 8:51 AM FISH HATCHERY LABORER Encounter for screening mammogram for malignant neoplasm of breast COLONOSCOPY Routine 07/05/2014 from Last 3 Months or Most Recently Relevant to Health Maintenance Results * Dexa TBS Axial Skeleton Bone Density 1 or more sites (02/24/2024 9:32 AM CDT) Anatomical Region Laterality Modality Wrist, Body N/A Radiographic Alessia ging Narrative 02/24/2024 9:46 AM CDT Patient Name: Meena Klein Date of : 1955 Date of scan: 02/24/2024 Bone mineral density was performed on a [email or web address] Discovery Densitometer. Based on machine cross-calibration and precision studies the least significant changes of this densitometer is 0.024 g/cm2 at the spine, 0.020 g/cm2 at the total proximal femur, and 0.014g/cm2 at the forearm. HISTORY: This is a 68 y.o. postmenopausal female with a history of osteoporosis and vitamin D deficiency. She reports that she has quit smoking. She has never used smokeless tobacco. Currently on treatment with vitamin D and teriparatide (Forteo), previously treated with zoledronic acid (Reclast), hormone replacement therapy, and Risedronate, and current complaint of arm pain. INDICATIONS: Menopause status, treatment monitoring, history of prior vertebral fracture, vitamin D deficiency, and history of osteoporosis. FINDINGS: BONE MINERAL DENSITY OF THE LUMBAR SPINE Bone Mineral Density (BMD) of the lumbar spine was measured from L2-L4 and the average density was calculated to be 0.720 gm/cm2. This corresponds to a T-score (standard deviations from the mean of young adults) of -3.3. When compared to the previous study of 02/11/23 there has been no significant changes in bone density. BONE MINERAL DENSITY OF THE PROXIMAL FEMUR Bone Mineral Density (BMD) of the left hip total was found to be 0.684 gm/cm2. This corresponds to a T-score standard deviations from the mean of young adults of -2.1. Femoral neck is 0.548 gm/cm2 with a T-score (standard deviations from the mean of young adults) of -2.7. When compared to the previous study of 02/11/23 there has been no significant changes in bone density. SUMMARY: Bone mineral density shows evidence of osteoporosis and marked increase risk of fracture. There has been no significant changes in bone density since previous measurement. L1 excluded from bone mineral density analysis of the lumbar spine because of bone density being more than 1 standard deviation discrepant relative to one adjacent vertebra. Clinical correlation is recommended. The lumbar spine Trabecular Bone Score is 1.091 which suggests degraded bone microarchitecture compared to the general population. Final decisions regarding diagnostic or therapeutic recommendations should include BMD, TBS, additional clinical risk factors as well the clinical context of the patient. Please see attached TBS results for further details. ADDITIONAL COMMENTS: Postmenopausal Women and Men Over 50: Diagnostic criteria: Osteoporosis: BMD at or below -2.5 T-score; Osteopenia (low bone mass): BMD between -1.0 and -2.5 T-score. If the patient has a history of a fragility fracture, a fracture that occurred with trauma equivalent to a fall from a standing position or less, then the diagnosis is osteoporosis regardless of bone density. The history and data sections of the bone mineral density scan were prepared by Marisela Conteh who is accredited by the International Society of Clinical Densitometry. The overall patient assessment and scan interpretation were performed by Rock Neely M.D. who is certified by the International Society of Clinical Densitometry. [id number] us Rock Neely MD IMG DXA PROCEDURES Final Resul t * Screening Mammogram Bilateral W Unno (06/23/2021 8:51 AM FISH HATCHERY LABORER) Anatomical Region Laterality Modality Breast Bilateral Mammography Narrative 06/24/2021 7:45 AM FISH HATCHERY LABORER Mammogram Technique: Bilateral Digital Breast Tomosynthesis, Bilateral C-view 2D Screening mammogram. Views obtained: bilateral craniocaudal and bilateral mediolateral oblique. Computer Aided Detection was performed. Mammogram Findings: The present examination has been compared to prior imaging studies performed at [facility] on 06/20/2018, and at [facility] on 06/20/2019 and 06/21/2020. The breasts are extremely dense, which lowers the sensitivity of mammography. There is no suspicious abnormality in either breast. Impression: There is no mammographic evidence of malignancy. Annual screening mammography is recommended. OVERALL FINAL ASSESSMENT: BI-RADS CATEGORY 1: Negative. Procedure Note Tram Ramos MD - 06/24/2021 Mammogram Technique: Bilateral Digital Breast Tomosynthesis, Bilateral C-view 2D Screening mammogram. Views obtained: bilateral craniocaudal and bilateral mediolateral oblique. Computer Aided Detection was performed. Mammogram Findings: The present examination has been compared to prior imaging studies performed at [facility] on 06/20/2018, and at [facility] on 06/20/2019 and 06/21/2020. The breasts are extremely dense, which lowers the sensitivity of mammography. There is no suspicious abnormality in either breast. Impression: There is no mammographic evidence of malignancy. Annual screening mammography is recommended. OVERALL FINAL ASSESSMENT: BI-RADS CATEGORY 1: Negative. Swathi Herbert MD IMG MAMMO PROCEDURES Fi nal Result * COLONOSCOPY (07/05/2014) Colonoscopy Normal Historical Provider HEALTH MAINTENANCE Final Result from Last 3 Months or Most Recently Relevant to Health Maintenance Insurance MEDICARE [facility] MEDICARE SUPPLEMENT MEDICARE ANTH ACCESS CHOICE MEDICARE [facility] MEDICARE SUPPLEMENT Care Teams Rn Vascular Relationship Specialty Start Date End Date Higinio Barnes MD PCP - General Family Practice 03/08/24
--- OUTSIDE RECORDS SUMMARY | 2024-11-13 14:06 | XMS_ITS | Encounter Summary ---
Author Organization [facility] Address [address] 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 Gender Identity Female 03/30/2023 12:11 PM CDT Sexual Orientation Straight 03/30/2023 12 :11 PM CDT documented as of this encounter Plan of Treatment Not on file documented as of this encounter Procedures Procedure Name Priority Date/Time Associated Diagnosis Comments SCAN - LABS 11/03/2023 documented in this encounter Results * SCAN - LABS (11/03/2023) us Provider Scanning Final Result documented in this encounter Visit Diagnoses Not on filedocumented in this encounter Care Teams Dental Sales Representative Relationship Specialty Start Date End Date Iban Jeffery MD [address] [place] [address] PCP - General 06/12/19 03/07/24 Higinio Barnes MD [address] [place] [address] PCP - General Family Practice 03/08/24 documented as of this encounter
--- OUTSIDE RECORDS SUMMARY | 2024-11-13 14:07 | XMS_ITS | Clinical Summary ---
Author Organization [facility] Address [address] [place] [address] Care Team Providers Care Director Government Name Role Phone Higinio Barnes MD Primary Care Provider [phone] Allergies Active Allergy Reactions Criticality Noted Date [...] 09/02/2010 Multiple sclerosis 09/02/2010 Neurogenic bladder 09/02/2010 Encounters Date Type Department Care Team Description 10/10/2024 11:00 AM CDT Office Visit [facility] Multiple Sclerosis [address] 7th [place] [address] René Mcmullen MD Multiple sclerosis (HCC) (Primary Dx); Urinary urgency; Neurogenic bladder; Other fatigue 10/02/2024 Telephone [facility] [address] [facility] [address] [place] [address] Rock Neely MD from Last 3 Months Surgical History Surgery Date Site/Laterality Comments ORAL SURGERY Oral Surgery - (Added by TW Conv) FOOT SURGERY Foot Surgery - (Added by TW Conv) Medical History Medical History Date Comments Personal history of diseases of skin or subcutaneous tissue History of hidradenitis supp urativa - (Added by TW Conv) Personal history of other be nign neoplasm History of uterine leiomyoma - (Added by TW Conv) Low grade squamous intraepit helial lesion on cytologic smear of cervix (LGSIL) Papanicolaou smear of cervix with low grade squamous intraepithelial lesion (LGSIL) - (Added by TW Conv) Other constipation Chronic const ipation - (Added by TW Conv) Neuromuscular dysfunction of bladder Neurogenic bladder - (Added by TW Conv) Personal history of other me ntal and behavioral disorders History of depression - (Add ed by TW Conv) Encounter for screening for other suspected endocrine disorder Screening for endocrine/metabolic/immunity disorders - (Added by TW Conv) Personal history of other sp ecified conditions History of headache - (Added by TW Conv) 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 Encounter for long-term (current) use of medications - (Added by TW Conv) 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, soft tissue, and skin Neoplasm of skin - (Added by TW Conv) Other symptoms and signs inv olving cognitive functions and awareness Cognitive changes - (Added by TW Conv) Personal history of other sp ecified conditions History of balance disorder - (Added by TW Conv) Multiple sclerosis (HCC) Multipl e sclerosis - (Added by TW Conv) Urgency of urination Urinary urg ency - (Added by TW Conv) ADHD (attention deficit hype ractivity disorder) Anxiety Depression Infectious viral hepatitis 1973 Neuromuscular disorder (HCC) Osteoporosis Family History Medical History Relation Name Comments Hypertension Father Family history of hypertension - (Added by TW Conv) Mental illness Mother Chronic menta l illness - (Added by TW Conv) Breast cancer Mother's Sister 1 Breast Ca ncer - (Added by TW Conv) Breast cancer Mother's Sister 2 Family hi story of malignant neoplasm of breast - (Added by TW Conv) Lupus Other Family history of systemic lupus erythematosus - (Added by TW Conv) Osteoporosis Other Breast cancer Sister 1 Family history of malignant neoplasm of breast - (Added by TW Conv) Osteoporosis Sister 2 Family history of osteoporosis - (Added by TW Conv) Hip fracture Neg Hx Relation Name Status Comments Father Mother Mother's Sister 1 Mother's Sister 2 Other Sister 1 Sister 2 Social History Tobacco Use Types Packs/Day Years [...] on file 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 Gender Identity Female 03/30/2023 12:11 PM CDT Sexual Orientation Straight 03/30/2023 12 :11 PM CDT Obstetrics History Para Term AB IAB SAB Ectopic Multiple Livin g Live Births 1 1 1 1 1 Date Outcome GA Total Labor Labor/2nd/3rd Weight Sex Type Anes PTL Kirti A1 A5 Name Clin 1984 Term M Vag-S pont Living Last Filed Vital Signs Vital Sign Reading Time Taken Comments Blood Pressure 149/80 05/03/2024 11:37 AM CDT Pulse 94 05/03/2024 11:37 AM CDT Temperature 37.4 C (99.3 F) 02/28/2024 12:28 PM CDT Respiratory Rate 20 02/28/2024 12:28 PM CDT Oxygen Saturation 97% 02/28/2024 12:28 PM CDT Inhaled Oxygen Concentration - - Weight 56.7 kg (125 lb) 05/11/2024 4:40 PM FOOD ASSEMBLER Height 157.5 cm (5' 2 ) 05/11/2024 4:40 PM FOOD ASSEMBLER Body Mass Index 22.86 05/11/2024 4:40 PM FOOD ASSEMBLER Plan of Treatment Health Maintenance Due Date Last Done Comments Depression Screening 1955 Fall Risk Assessment 1955 Hepatitis C Screening 1955 DTaP/Tdap/Td Vaccine (1 - Tdap) 1967 Hepatitis B Screening 1974 Pneumococcal vaccine 65+ (1 of 1 - PCV) 2006 Zoster Vaccine (1 of 2) 2006 Well Visit 65+ 12/31/2021 12/31/2020, 01/2020, 05/23/2018 Breast Cancer Screening-Mammogram 06/23/2022 06/23/2021, 06/21/2020, 06/20/2019, Additional history exists Colon Cancer Screening-Colonoscopy 07/05/2024 07/05/2014 Influenza Vaccine (Season Ended) 2025 Osteoporosis Screening-Bone Density Scan 02/23/2026 02/24/2024, 02/11/2023, 05/01/2021, Additional history exists Colon Cancer Screening-CT Colonography Discontinued 07/05/2014 Colon Cancer Screening-DNA Stool Discontinued 07/05/19 15 Colon Cancer Screening-FIT Discontinued 07/05/2014 Colon Cancer Screening-Sigmoidoscopy Discontinued 07/05/2014 Medical Devices Implanted Type Area Printing Assistant Device Identifier Shelf Expiration Date Model / [...] Read Routine (OP Routine) 06/23/2021 8:51 AM FOOD ASSEMBLER Encounter for screening mammogram for malignant neoplasm of breast HM COLONOSCOPY Routine 07/05/2014 from Last 3 Months [...] Bone mineral density was performed on a [employer] Discovery Densitometer. Based on machine cross-calibration and [...] by the International Society of Clinical Densitometry. [id number] us Rock Neely MD IMG DXA PROCEDURES Final Resul t * Screening Mammogram Bilateral W Nuno (06/23/2021 8:51 AM FOOD ASSEMBLER) Anatomical Region Laterality Modality Breast Bilateral Mammography Narrative 06/24/2021 7:45 AM FOOD ASSEMBLER Mammogram Technique: Bilateral Digital Breast Tomosynthesis, Bilateral C-view 2D Screening mammogram. Views obtained: bilateral craniocaudal and bilateral mediolateral oblique. Computer Aided Detection was performed. Mammogram Findings: The present examination has been compared to prior imaging studies performed at [facility] on 06/20/2018, and at [facility] on 06/20/2019 and 06/21/2020. The breasts [...] compared to prior imaging studies performed at [facility] on 06/20/2018, and at [facility] on 06/20/2019 and 06/21/2020. The breasts [...] Recently Relevant to Health Maintenance Insurance MEDICARE [facility] MEDICARE SUPPLEMENT MEDICARE [place] ACCESS CHOICE MEDICARE [facility] MEDICARE SUPPLEMENT Care Teams Director Government Relationship Specialty Start Date End Date Higinio Barnes MD PCP - General Family Practice 03/08/24
--- OUTSIDE RECORDS SUMMARY | 2024-11-13 14:07 | XMS_ITS | Encounter Summary ---
Author Organization [facility] Address [address] [place] [address] Care Team Providers Care Screw Machine Operator Name Role Phone Iban Jeffery MD Primary Care Provider [phone] Higinio Barnes MD Primary Care Provider [phone] Encounter Details Date Type Department Care Team (Late st Contact Info) Description 03/24/[address] 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
== END 2024-11-13 14:01 | disposition home or self-care (01) ==
LOC: CHSIMG 14:01
PROVIDERS: PCP Family Medicine; Visit Provider Family Medicine
DX: Z12.31 Encounter for screening mammogram for malignant neoplasm of breast (principal)
CPT/HCPCS: 77063; 77067

== ENCOUNTER 2024-11-30 02:09 | Day surgery (SDC) | payer MEDICARE, SELFPAY ==
[2024-11-23 13:17] VITALS: BMI 23.4
--- OUTSIDE RECORDS SUMMARY | 2024-11-30 02:12 | XMS_ITS | Encounter Summary ---
Author Organization 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
--- OUTSIDE RECORDS SUMMARY | 2024-11-30 02:12 | XMS_ITS | Clinical Summary ---
Author Organization [email or web address] Address [address] [facility] [address] [address] Attn: Teresita Prelusera [place] [address] Care Team Providers Care Associate Media Planner Name Role Phone Unavailable Primary Care Provider [...] daily. 30 Tablet 3 05/26/2022 11:59 AM BENCH WORKER APPRENTICE 2 Active buPROPion HCL (WELLBUTRIN XL) 150 [...] daily. 90 Tablet 1 07/02/2022 12:11 PM BENCH WORKER APPRENTICE 2 Active buPROPion HCL (WELLBUTRIN XL) 150 mg Extended Release 24 hour tablet Take 1 Tablet (150 mg) by mouth daily in the morning. 30 Tablet 3 04/28/2023 2:43 PM CDT 2 Active DULoxetine (CYMBALTA) 60 mg Capsule, Delayed Release(E.C.) Take 1 Capsule (60 mg) by mouth daily. 30 Capsule 3 08/16/2022 12:21 PM BENCH WORKER APPRENTICE 2 Active lamoTRIgine (LaMICtal) 100 mg tablet Take 1 Tablet (100 mg) by mouth daily. 30 Tablet 3 08/25/2022 3:31 PM BENCH WORKER APPRENTICE 2 Active amphetamine-dex troamphetamine (ADDERALL XR) 15 mg Extended Release 24 hour capsule Take 1 Capsule (15 mg) by mouth daily in the morning. 30 Capsule 3 Active methylphenidate HCl (Concerta) 18 mg Extended Release tablet Take 1 Tablet (18 mg) by mouth daily in the morning. Max Daily Amount: 18 mg 30 Tablet 08/30/2022 12:40 PM BENCH WORKER APPRENTICE 3 Active amLODIPine (NORVASC) 2.5 mg tablet [...] DAILY 90 Tablet 1 07/22/2023 2:57 PM BENCH WORKER APPRENTICE 3 Active cyclobenzaprine (FLEXERIL) 10 mg tablet [...] daily. 90 Tablet 1 07/12/2023 9:27 AM BENCH WORKER APPRENTICE 3 Active atorvastatin (LIPITOR) 20 mg tablet TAKE ONE TABLET BY MOUTH ONCE DAILY 90 Tablet 1 07/12/2023 9:27 AM BENCH WORKER APPRENTICE 3 Active DULoxetine (CYMBALTA) 60 mg Capsule, Delayed Release(E.C.) Take 1 Capsule (60 mg) by mouth daily. 90 Capsule 1 07/28/2023 2:15 PM BENCH WORKER APPRENTICE 3 Active ibuprofen (MOTRIN) 600 mg tablet Take 1 Tablet (600 mg) by mouth 3 times daily as needed for pain. TAKE WITH FOOD 90 Tablet 1 08/17/2023 2:45 PM BENCH WORKER APPRENTICE 3 Active buPROPion HCL (WELLBUTRIN XL) 150 mg Extended Release 24 hour tablet Take 1 Tablet (150 mg) by mouth daily in the morning. 30 Tablet 3 07/12/2023 9:27 AM BENCH WORKER APPRENTICE 3 Active lamoTRIgine (LaMICtal) 100 mg tablet Take 1 Tablet (100 mg) by mouth daily. 30 Tablet 3 07/22/2023 2:57 PM BENCH WORKER APPRENTICE 3 Active buPROPion HCL (WELLBUTRIN XL) 150 [...] daily in the morning. 90 Tablet 1 11/28/2024 3:05 PM CDT 4 Active DULoxetine (CYMBALTA) 60 mg Capsule, Delayed Release(E.C.) Take 1 Capsule (60 mg) by mouth daily. 90 Capsule 1 07/03/2024 3:43 PM BENCH WORKER APPRENTICE 4 Active lamoTRIgine (LaMICtal) 100 mg tablet Take 1 Tablet (100 mg) by mouth daily. 90 Tablet 1 08/22/2024 12:25 PM BENCH WORKER APPRENTICE 4 Active famotidine (PEPCID) 20 mg tablet Take 1 Tablet (20 mg) by mouth 2 times daily. 180 Tablet 1 09/07/2024 8:08 AM BENCH WORKER APPRENTICE 4 Active buPROPion HCL (WELLBUTRIN XL) 150 mg Extended Release 24 hour tablet Take 1 Tablet (150 mg) by mouth daily in the morning. 90 Tablet 1 5 Active lamoTRIgine (LaMICtal) 100 mg tablet Take 1 Tablet (100 mg) by mouth daily. 90 Tablet 1 11/23/2024 2:24 PM CDT 5 Active DULoxetine (CYMBALTA) 60 mg Capsule, [...] Max Daily Amount: 15 mg 30 Capsule 11/14/2024 11:38 AM CDT 5 Active lamoTRIgine (LaMICtal) 100 mg tablet Take 1 Tablet (100 mg) by mouth daily. 90 Tablet 1 5 Active amphetamine-dex troamphetamine (ADDERALL XR) 15 mg Extended Release 24 hour capsule Take 1 Capsule (15 mg) by mouth daily in the morning. Max Daily Amount: 15 mg 30 Capsule 10/13/2024 4:34 PM CDT 5 11/14/19 25 Discontinu ed(Reorder ) Social History Tobacco Use Types Packs/Day Years [...] fective 2024-Present) Name:Meena Klein Relation to Subscriber:Self Name:JarrellMeena meredith Subscriber ID:Not on file Payer ID:Not on file Group ID:[id number] Type:RX Commercial Address: [place]
--- OUTSIDE RECORDS SUMMARY | 2024-11-30 02:12 | XMS_ITS | Encounter Summary ---
Author Organization [facility] Address [address] [place] [address] Phone Care Team Providers Care Import Coordination And Production Head Name Role Phone Kailash Webb MD Primary Care Provider [phone] Iban Jeffery MD Primary Care Provider [phone] Higinio Barnes MD Primary Care Provider [phone] Encounter Details Date Type Department Care Team [...] on file Legal Sex Female 12:30 AM CSW Gender Identity Female 03/30/2023 12:11 PM CDT [...] on filedocumented in this encounter Care Teams Import Coordination And Production Head Relationship Specialty Start Date End Date Kailash Webb MD [address] [place] [address] PCP - General 09/21/17 06/11/19 Iban Jeffery MD [address] [facility] [address] [place] [address] PCP - General 06/12/19 03/07/24 Higinio Barnes MD [address] [facility] [address] [place] [address] PCP - General Family Practice 03/08/24 documented as of this encounter
--- OUTSIDE RECORDS SUMMARY | 2024-11-30 02:13 | XMS_ITS | Encounter Summary ---
Author Organization 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
--- OUTSIDE RECORDS SUMMARY | 2024-11-30 02:13 | XMS_ITS | Continuity of Care Document ---
Author Organization [facility] Address [address] [place] [address] [address] [place] [address] Phone Care Team Providers Care Commercial Credit Officer Name Role Phone Vazquez OD, Erickson Unavailable Unavailable Procedures Procedure Date Eye Exam & Treatment Refraction Advance Directives Directive Yes / No Effective Date File Name No Information Encounters Encounter Description Practice Location Reason(s) For Visit Diagnoses Date Provider Providers Copied on Encounter [facility], [address] [place] [address] [address], [place], [place], [id number], [place] tel:[phone] [facility] No Information Sep- 1-200 8 Vazquez OD Erickson. [address] , [address], [place], [address], [place]. tel:[phone] Family History Family Member Type Diagnosis Age At Onset No Information Payers Payer name Insurance type Covered alliance party ID Authoriza tion(s) No Information Social History [...]
--- OUTSIDE RECORDS SUMMARY | 2024-11-30 02:13 | XMS_ITS | Clinical Summary ---
Author Organization [facility] Healthcare Address [address] [place] [address] Care Team Providers Care Stained Glass Artist Name Role Phone Higinio Barnes MD Primary Care Provider [phone] Allergies Active Allergy Reactions Criticality Noted Date [...] Visit [facility] Multiple Sclerosis [address] [facility] 7th [place] [address] René Mcmullen MD Multiple sclerosis (HCC) (Primary Dx); Urinary urgency; Neurogenic bladder; Other fatigue 10/02/2024 Telephone [facility] [address] [facility] [address] [place] [address] Rock Neely MD from Last [...] headache - (Added by TW Conv) 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 coordinator (current) drug therapy Encounter for long-term (current) [...] on file Legal Sex Female 12:30 AM TERRITORY REPRESENTATIVE Gender Identity Female 03/30/2023 12:11 PM CDT [...] 56.7 kg (125 lb) 05/11/2024 4:40 PM TERRITORY REPRESENTATIVE Height 157.5 cm (5' 2) 05/11/2024 4:40 PM TERRITORY REPRESENTATIVE Body Mass Index 22.86 05/11/2024 4:40 PM TERRITORY REPRESENTATIVE Plan of Treatment Health Maintenance Due Date [...] Discontinued 07/05/2014 Medical Devices Implanted Type Area Parimutuel Clerk Device Identifier Shelf Expiration Date Model / [...] Read Routine (OP Routine) 06/23/2021 8:51 AM TERRITORY REPRESENTATIVE Encounter for screening mammogram for malignant neoplasm [...] Bone mineral density was performed on a [employer] Discovery Densitometer. Based on machine cross-calibration and [...] by the International Society of Clinical Densitometry. [id number] us Rock Neely MD IMG DXA PROCEDURES Final Resul t * Screening Mammogram Bilateral W Nuno (06/23/2021 8:51 AM TERRITORY REPRESENTATIVE) Anatomical Region Laterality Modality Breast Bilateral Mammography Narrative 06/24/2021 7:45 AM TERRITORY REPRESENTATIVE Mammogram Technique: Bilateral Digital Breast Tomosynthesis, Bilateral C-view 2D Screening mammogram. Views obtained: bilateral craniocaudal and bilateral mediolateral oblique. Computer Aided Detection was performed. Mammogram Findings: The present examination has been compared to prior imaging studies performed at [facility] on 06/20/2018, and at [facility] on 06/20/2019 and 06/21/2020. The breasts [...] compared to prior imaging studies performed at [facility] on 06/20/2018, and at [facility] on 06/20/2019 and 06/21/2020. The breasts [...] Recently Relevant to Health Maintenance Insurance MEDICARE [facility] MEDICARE SUPPLEMENT MEDICARE [place] ACCESS CHOICE MEDICARE [facility] Address: [address] [address] [place] [address] [facility] MEDICARE SUPPLEMENT Care Teams Stained Glass Artist Relationship Specialty Start Date End Date Higinio Barnes MD PCP - General Family Practice 03/08/24
--- OUTSIDE RECORDS SUMMARY | 2024-11-30 02:13 | XMS_ITS | Referral Summary ---
Author Organization [facility] Healthcare Address [address] [place] [address] Care Team Providers Care Mail Caller Name Role Phone Higinio Barnes MD Primary Care Provider [phone] Encounters Date Type Department Care Team Description 10/10/2024 11:00 AM CDT Office Visit [facility] Multiple Sclerosis [address] [facility] [address] 7th [place] [id number] René Mcmullen MD Multiple sclerosis (HCC) (Primary Dx); Urinary urgency; Neurogenic bladder; Other fatigue 10/02/[address] [place] [address] Rock Neely MD from Last [...] on file Legal Sex Female 12:30 AM RADIOLOGIC TECHNOLOGIST Gender Identity Female 03/30/2023 12:11 PM CDT [...] 56.7 kg (125 lb) 05/11/2024 4:40 PM RADIOLOGIC TECHNOLOGIST Height 157.5 cm (5' 2) 05/11/2024 4:40 PM RADIOLOGIC TECHNOLOGIST Body Mass Index 22.86 05/11/2024 4:40 PM RADIOLOGIC TECHNOLOGIST Plan of Treatment Not on file Medical Devices Implanted Type Area Shop Laborer Device Identifier Shelf Expiration Date Model / [...] Read Routine (OP Routine) 06/23/2021 8:51 AM RADIOLOGIC TECHNOLOGIST Encounter for screening mammogram for malignant neoplasm [...] Bone mineral density was performed on a [employer] Discovery Densitometer. Based on machine cross-calibration and [...] by the International Society of Clinical Densitometry. [id number] us Rock Neely MD IMG DXA PROCEDURES Final Resul t * Screening Mammogram Bilateral W Nuno (06/23/2021 8:51 AM RADIOLOGIC TECHNOLOGIST) Anatomical Region Laterality Modality Breast Bilateral Mammography Narrative 06/24/2021 7:45 AM RADIOLOGIC TECHNOLOGIST Mammogram Technique: Bilateral Digital Breast Tomosynthesis, Bilateral C-view 2D Screening mammogram. Views obtained: bilateral craniocaudal and bilateral mediolateral oblique. Computer Aided Detection was performed. Mammogram Findings: The present examination has been compared to prior imaging studies performed at [facility] on 06/20/2018, and at [facility] on 06/20/2019 and 06/21/2020. The breasts [...] compared to prior imaging studies performed at [facility] on 06/20/2018, and at [facility] on 06/20/2019 and 06/21/2020. The breasts [...] Recently Relevant to Health Maintenance Insurance MEDICARE [facility] MEDICARE SUPPLEMENT MEDICARE ANTH ACCESS CHOICE MEDICARE [facility] MEDICARE SUPPLEMENT Care Teams Mail Caller Relationship Specialty Start Date End Date Higinio Barnes MD PCP - General Family Practice 03/08/24
--- OUTSIDE RECORDS SUMMARY | 2024-11-30 02:13 | XMS_ITS ---
Author Organization [facility] [employer] Address [address] [place] [address] Care Team Providers Care Temporary Administrative Assistant Name Role Phone Higniio Barnes MD Primary Care Provider Francois Wood Unavailable [phone] Allergies Allergen (clinical drug ingredient) Drug/Non Drug Allergy documented on EMR Reaction Allergy Type Onset Date Status Substance with penicillin structure and antibacterial mechanism of action (substance) Penicillins Unknown Drug Allergy 08/10/2023 Active REASON FOR VISIT 3 month f/u, DENIED UDT Medications Medication SIG (Take, Route, Frequency, Duration) Notes Start Date End Date Status lamoTRIgine 100 MG 1 tablet Oral Once a day for 90 days Active buPROPion HCl ER (XL) 150 MG 1 tablet in the morning Oral Once a day for 90 days Active DULoxetine HCl 60 MG 1 capsule Oral Once a day for 90 days Active lamoTRIgine 100 MG 1 tablet Oral Once a day for 90 days Active Amphetamine-Dextroamphet ER 15 MG 1 capsule in the morning Orally Once a day 06/12/2024 Active Amphetamine-Dextroamphet ER 15 MG 1 capsule in the morning Orally Once a day for 30 days 11/13/2024 Not-Taking Losartan Potassium-HCTZ 100-12.5 MG Oral 11/17/2023 Active Atorvastatin Calcium 20 MG Oral 11/17/2023 Active amLODIPine Besylate 2.5 MG Oral 11/17/2023 Active buPROPion HCl ER (XL) 150 MG 1 tablet every morning Oral Once a day for 90 days Active Forteo 600 MCG/2.4ML as directed Subcutaneous 02/03 Active Ibuprofen 600 MG Oral 11/17/2023 Ac tive Famotidine 20 MG Oral 11/17/2023 Ac tive Social History Sex Assigned At : Social History Observation Description Sex Assigned At Female Vital Signs Blood pressure systolic 135 mm Hg 11/24/19 25 Blood pressure diastolic 79 mm Hg 025 Heart Rate 78 /min 11/23/2024 Height 62.00 in 11/23/2024 Weight 131 lbs 11/23/2024 BMI 23.96 kg/m2 11/23/2024 Height-cm 157.48 cm 11/23/2024 Weight-kg 59.42 kg 11/23/2024 Encounters Encounter Location Date Provider Diagnosis [facility] [address] [place] [address] 11/23/2024 Francois Lopez Encounter for screen ing for cardiovascular disorders Z13.6 ; Negative depression screening Z13.31 ; Benign essential HTN I10 ; Generalized anxiety disorder F41.1 ; Major depressive disorder, recurrent, mild F33.0 and Attention-deficit hyperactivity disorder, predominantly inattentive type F90.0 Assessments Encounter Date Diagnosis (ICD Code) Assessment Notes Treatment Notes Treatment Clinical Notes Section Notes 11/23/2024 Encounter for screening for cardiovascular disorders (ICD-10 - Z13.6) 11/23/2024 Negative depression screening (ICD-10 - Z13.31) 11/23/2024 Benign essential HTN (ICD-10 - I10) 11/23/2024 Generalized anxiety disorder (ICD-10 - F41.1) stable 11/23/2024 Major depressive disorder, recurrent, mild (ICD-10 - F33.0) stable cont lamotrigine 100mg 1 tablet at bedtime , duloxetine 60mg daily, bupropion xl 150mg daily Plasma concentrations and pharmacologic effects of duloxetine may be increased by strong CYP2D6 inhibitors (eg, buPROPion HCl ER (XL) Oral Tablet Extended Release 24 Hour 150 MG). 11/23/2024 Attention-deficit hyperactivity disorder, predominantly inattentive type (ICD-10 - F90.0) Adderall xr 15mg daily Plan Of Treatment Medication Medication Name Sig Start Date Stop Date Notes buPROPion HCl ER (XL) 150 MG 1 tablet in the morning Oral Once a day for 90 days DULoxetine HCl 60 MG 1 capsule Oral Once a day for 90 days lamoTRIgine 100 MG 1 tablet Oral Once a day for 90 days Amphetamine-Dextroamphet ER 15 MG 1 capsule in the morning Orally Once a day 06/12/2024 Treatment Notes Assessment Notes Generalized anxiety disorder stable Major depressive disorder, recurrent, mi ld stable cont lamotrigine 100mg 1 tablet at bedtime , duloxetine 60mg daily, bupropion xl 150mg daily Plasma concentrations and pharmacologic effects of duloxetine may be increased by strong CYP2D6 inhibitors (eg, buPROPion HCl ER (XL) Oral Tablet Extended Release 24 Hour 150 MG). Attention-deficit hyperactiv ity disorder, predominantly inattentive type Adderall xr 15mg daily Next Appt Details Follow Up: 3 Months, Reason: f/u adhd, depression Provider Name:Francois granados, 02/22/2025 11:30:00 AM, [address], [facility] [address], [place], [address], Progress Notes * MEGHAN LANGDOB:[birth year] (69 yo F)Acc No.[id number]:11/23/2024 Patient: MEGHAN PATTERSON Provider: BLAINE WHITE :1955 A ge:69 Y S ex:Female Date:11/23/2024 Address:[facility] Pcp:Higinio Barnes MD Subjective: * Chief Complaints: * 1 . 3 month f/u. 2. DENIED UDT. * HPI: H istory of Presenting Problem: Depression screening doneadvance care planning discussPt was seen today and Urine drug screen was done. D epression screening: PHQ-9 L ittle interest or pleasure in doing things?Several days F eeling down, depressed, or hopeless N ot at all T rouble falling or staying asleep, or sleeping too much N ot at all F eeling tired or having little energy N ot at all P oor appetite or overeating N ot at all F eeling bad about yourself or that you are a failure, or have let yourself or your family down N ot at all T rouble concentrating on things, such as reading the newspaper or watching television N ot at all M oving or speaking so slowly that other people could have noticed; or the opposite, being so fidgety or restless that you have been moving around a lot more than usual N ot at all T houghts that you would be better off or of hurting yourself in some way N ot at all T otal Score 1 I nterpretation M inimal Depression Intervention D epression Screening Findings N egative F ollow-Up for Depression P sychiatric follow-up S uicide Risk Assessment Performed 0 11/23/2024 - date E lderly Maltreatment: Screening Questions P hysical Abuse - Infliction of physical injury by punching, beating, kicking, biting, burning, shaking, or other actions that result in harm.?No E motional/Psychological Abuse - Willful infliction of mental or emotional anguish by threat, humiliation, isolation, or other verbal or nonverbal conduct. N o N eglect - Involves attitudes of others or actions caused by others - such as family members, friends, or institutional caregivers - that have an extremely detrimental effect upon well-being N o S exual Abuse - Forcing of undesired sexual behavior by one person upon another against their will who are either competent or unable to fully comprehend and/or give consent. This may also be called molestation. N o E lder Abandonment - Desertion of an elderly person by an individual who has assumed responsibility for providing care for an elder, or by a person with physical custody of an elder N o F inancial or Material Exploitation - Taking advantage of a person for monetary gain or profit N o U nwarranted Control - Controlling a person's ability to make choices about living situations, household finances, and medical care. N o Screening Results R esults E lder maltreatment screen documented as negative, follow-up is not required (G8734) Elder maltreatment screen documented as negative, follow-up is not required. * ROS: P erformance Met: N ormal blood pressure reading documented, follow-up not required ( G8783). * Medical History: P roblems: Attention deficit hyperactivity disorder, Attention deficit hyperactivity disorder, predominantly inattentive type, Generalized anxiety disorder, Long- term current use of drug therapy, Long-term drug therapy, Mild recurrent major depression, ,. * Social History: M igrated Social History: M igrated Social History: Alcohol Intake: None 04/14/2018,Tobacco Years: Former smoker 06/17/2022,Smoking Status: 0 08/10/2023. * Medications: T aking buPROPion HCl ER (XL) 150 MG Tablet Extended Release 24 Hour 1 tablet in the morning Oral Once a day , Taking DULoxetine HCl 60 MG Capsule Delayed Release Particles 1 capsule Oral Once a day , Taking Forteo 600 MCG/2.4ML Solution Pen-injector as directed Subcutaneous , Taking Ibuprofen 600 MG Tablet Oral , Taking Famotidine 20 MG Tablet Oral , Taking Losartan Potassium-HCTZ 100-12.5 MG Tablet Oral , Taking Atorvastatin Calcium 20 MG Tablet Oral , Taking amLODIPine Besylate 2.5 MG Tablet Oral , Taking buPROPion HCl ER (XL) 150 MG Tablet Extended Release 24 Hour 1 tablet every morning Oral Once a day , Taking Amphetamine-Dextroamphet ER 15 MG Capsule Extended Release 24 Hour 1 capsule in the morning Orally Once a day , Taking lamoTRIgine 100 MG Tablet 1 tablet Oral Once a day , Not-Taking Amphetamine-Dextroamphet ER 15 MG Capsule Extended Release 24 Hour 1 capsule in the morning Orally Once a day , Medication List reviewed and reconciled with the patient * Allergies: P enicillins: Allergy - Onset Date 08/10/2023. Objective: * Vitals: B P:135/79mm Hg, HR:78/min, Wt:131lbs, Wt-k.42 kg, Ht: 62.00 in, Ht-cm: 157.48 cm, BMI:23.96Index, Body Surface Area: 1.61. * Examination: P sychiatry: Appearance: w ell-groomed, well-nourished, ..., slender build. Affect / mood: a ppropriate, full range. Attention: g ood. Attitude: c ooperative. Suicidal ideation: n one. Memory status: n o impairment noted. Degree of awareness of surroundings: w ithin normal limits.? Delusions: n o. Hallucinations: n o. Insight: g ood. Intellectual functioning: n o impairment noted. Judgement: g ood. Orientation: a wake, alert and oriented x 3. Perceptual disorders: n o perceptual disorder noted. Psychomotor activity: w ithin normal range. Speech / language: a ppropriate pitch/modulation, clear and coherent, normal rate, volume, and articulation (RVR), proper grammar used. Thought content: a ppropriate. Thought process: i ntact. Assessment: * Assessment: 1. N egative depression screening - Z13.31 (Primary) 2 . E ncounter for screening for cardiovascular disorders - Z13.6 3 . B enign essential HTN - I10 4 . G eneralized anxiety disorder - F41.1 5 . M ajor depressive disorder, recurrent, mild - F33.0 6 . A ttention-deficit hyperactivity disorder, predominantly inattentive type - F90.0 Plan: * Treatment: 2. M ajor depressive disorder, recurrent, mild Refill buPROPion HCl ER (XL) Tablet Extended Release 24 Hour, 150 MG, 1 tablet in the morning, Oral, Once a day, 90 days, 90 Tablet, Refills 1; R efill DULoxetine HCl Capsule Delayed Release Particles, 60 MG, 1 capsule, Oral, Once a day, 90 days, 90 Capsule, Refills 1; R efill lamoTRIgine Tablet, 100 MG, 1 tablet, Oral, Once a day, 90 days, 90 Tablet, Refills 1. Notes:stable cont lamotrigine 100mg 1 tablet at bedtime , duloxetine 60mg daily, bupropion xl 150mg daily Plasma concentrations and pharmacologic effects of duloxetine may be increased by strong CYP2D6 inhibitors (eg, buPROPion HCl ER (XL) Oral Tablet Extended Release 24 Hour 150 MG). 3. A ttention-deficit hyperactivity disorder, predominantly inattentive type Continue Amphetamine-Dextroamphet ER Capsule Extended Release 24 Hour, 15 MG, 1 capsule in the morning, Orally, Once a day. Notes: Adderall xr 15mg daily * Procedure Codes: G 8734 ELDER MALTX SCR DOC NEG NO F/U RQR, G8783 NORMAL BP READING DOC F/U NOT RQR, 46619 BEHAV ASSMT W/SCORE & DOCD/STAND INSTRUMENT, 1123F ACP DISCUSS/DSCN MKR DOCD, 1036F TOBACCO NON-USER, G8510 NEG SCR D PT NOT ELIG F/U/PLN DOC, G8752 MOST RECENT SYSTOLIC BP < 140MM HG, G8754 MOST RECENT DIASTOLIC BP < 90MM HG * Preventive Medicine: Counseling: A dvance Care Planning Date of last Advance Care Planning:?11/23/2024 ____ MIPS Type of advance care directives: D urable power of compliance attorney for healthcare Screenings: D epression screening Have you had a recent depression screening? Y es * Follow Up: 3 Months (Reason: f/u adhd, depression) * Billing Information: * Visit Code: 68715 OFFICE OUTPATIENT VISIT 25 MINUTES DETAILED HISTORY AND EXAM/MODERATE MEDICAL DECISION MAKING. * Procedure Codes: G8734 ELDER MALTX SCR DOC NEG NO F/U RQR. G8783 NORMAL BP READING DOC F/U NOT RQR. 61290 BEHAV ASSMT W/SCORE & DOCD/STAND INSTRUMENT. 1123F ACP DISCUSS/DSCN MKR DOCD. 1036F TOBACCO NON-USER. G8510 NEG SCR D PT NOT ELIG F/U/PLN DOC. G8752 MOST RECENT SYSTOLIC BP < 140MM HG. G8754 MOST RECENT DIASTOLIC BP < 90MM HG. * Electronic signature of BLAINE Medina on 11/30/2024 at 02:12 AM CDT Sign off status: Pending * Provider: HÉCTOR WHITEP Date: 0 11/23/2024 Generated for Ebonie steele/Scot/eTransmitting on: 11/30/2024 02:12 AM CDT History and Physical Notes * HPI (History of Present Illness) Category Sub-Category Detail Notes Category Not es History of Presenting Problem Depression screening done advance care planning discuss Pt was seen today and Urine drug screen was done Depression screening PHQ-9 Little inte rest or pleasure in doing things: Several days Feeling down, depressed, or hopeless: No t at all Trouble falling or staying asleep, or sl eeping too much: Not at all Feeling tired or having little energy: N ot at all Poor appetite or overeating: Not at all Feeling bad about yourself o r that you are a failure, or have let yourself or your family down: Not at all Trouble concentrating on thi ngs, such as reading the newspaper or watching television: Not at all Moving or speaking so slowly that other people could have noticed; or the opposite, being so fidgety or restless that you have been moving around a lot more than usual: Not at all Thoughts that you would be b jorge off or of hurting yourself in some way: Not at all Total Score: 1 Interpretation: Minimal Depression Intervention Depression Screening Findings: N egative Follow-Up for Depression: Psychiatric fo llow-up Suicide Risk Assessment Performed: 11/23 - date Elderly Maltreatment Screening Questions Physica l Abuse - Infliction of physical injury by punching, beating, kicking, biting, burning, shaking, or other actions that result in harm.: No Elder maltreatment screen documented as negative, follow-up is not required Emotional/Psychological Abus e - Willful infliction of mental or emotional anguish by threat, humiliation, isolation, or other verbal or nonverbal conduct.: No Neglect - Involves attitudes of others or actions caused by others - such as family members, friends, or institutional caregivers - that have an extremely detrimental effect upon well-being: No Sexual Abuse - Forcing of un desired sexual behavior by one person upon another against their will who are either competent or unable to fully comprehend and/or give consent. This may also be called molestation.: No Elder Abandonment - Desertio n of an elderly person by an individual who has assumed responsibility for providing care for an elder, or by a person with physical custody of an elder: No Financial or Material Exploi tation - Taking advantage of a person for monetary gain or profit: No Unwarranted Control - Contro lling a person's ability to make choices about living situations, household finances, and medical care.: No Screening Results Results: Elder maltr eatment screen documented as negative, follow-up is not required (G8734) Examination Category Sub-Category Detail Notes Category Not es Psychiatry Appearance: well-groomed, we ll-nourished, ..., slender build Attitude: cooperative Psychomotor activity: within normal rang e Attention: good Degree of awareness of surroundings: wit hin normal limits Orientation: awake, alert and aydee ented x 3 Affect / mood: appropriate, full ra nge Speech / language: appropriate pitch/mo dulation, clear and coherent, normal rate, volume, and articulation (RVR), proper grammar used Insight: good Judgement: good Thought process: intact Thought content: appropriate Perceptual disorders: no perceptual diso rder noted Suicidal ideation: none Intellectual functioning: no impairment noted Memory status: no impairment noted Delusions: no Hallucinations: no
--- OUTSIDE RECORDS SUMMARY | 2024-11-30 02:13 | XMS_ITS | Patient Health Record ---
Author Organization [facility] [employer] [facility] Address [address] [place] [address] Care Team Providers Care Sash Finisher Name Role Phone Higinio Barnes MD Primary Care Provider Francois Wood Unavailable [phone] Jeri Khan Unavailable [phone] Arely Sánchez Unavailable [phone] Allergies Allergen (clinical drug ingredient) Drug/Non Drug Allergy documented on EMR Reaction Allergy Type Onset Date Status Substance with penicillin structure and antibacterial mechanism of action (substance) Penicillins Unknown Drug Allergy 08/10/2023 Active Results Component Value Reference Range Notes UDT Reviewed date:02/28/2024 11:17:23 AM Interpretation: Performing Lab: Notes/Report: THC Negative 0 - 50 ng/ml Cocaine Negative 0 - 300 ng/ml Amphetamine Negative 0 - 1000 ng/ml Buprenorphine (BUP) Negative 0 - 10 ng/ml Secobarbital (Bar) Negative 0 - 300 ng/ml Oxazepam (BZO) Negative 0 - 300 ng/ml 9-jujhzjqkpv-6,2-khivierl-3, 3-diphenylpyrrolidine (EDDP) Negative 0 - 300 ng/ml Methamphetamine (MET) Negative 0 - 1000 ng/ml Methylenedioxymethamphetamine (MDMA) Negative 0 - 500 ng/ml Morphine (MOP 300/DWB5248) Negative 0 - 300 ng/ml Methadone (MTD) [...] Oxazepam (BZO) N 0 - 300 ng/ml 8-ualllwyhbi-2,5-wuohwlmc-5, 3-diphenylpyrrolidine (EDDP) N 0 - 300 ng/ml Methamphetamine (MET) N 0 - 1000 ng/ml Methylenedioxymethamphetamine (MDMA) N 0 - 500 ng/ml Morphine (MOP 300/TCO0443) N 0 - 300 ng/ml Methadone (MTD) N 0 - 300 ng/ml Phencyclidine (PCP) N 0 - 25 ng/ml Nortriptyline (TCA) N 0 - 1000 ng/ml Oxycodone N 0 - 300 ng/ml x N 0 - 300 ng/ml Reason For Referral No Information Medications Medication SIG (Take, Route, Frequency, Duration) Notes Start Date End Date Status Amphetamine-Dextroamphet ER 15 MG 1 capsule in the morning Orally Once a day for 30 days 11/13/2024 Not-Taking buPROPion HCl ER (XL) 150 MG 1 tablet in the morning Oral Once a day for 90 days Active Forteo 600 MCG/2.4ML as directed Subcutaneous 02/03 Active DULoxetine HCl 60 MG 1 capsule Oral Once a day for 90 days Active Ibuprofen 600 MG Oral 11/17/2023 Ac tive lamoTRIgine 100 MG 1 tablet Oral Once a day for 90 days Active Famotidine 20 MG Oral 11/17/2023 Ac tive Amphetamine-Dextroamphet ER 15 MG 1 capsule in the morning Orally Once a day 06/12/2024 Active Losartan Potassium-HCTZ 100-12.5 MG Oral 11/17/2023 [...] Risk Notes Problem Mild recurrent major depression (36741613) Major depressive disorder, recurrent, mild (F33.0) 4 Active confirmed Problem Generalized anxiety disorder (63821469) Generalized anxiety disorder (F41.1) 4 Active confirmed Problem Attention-defici t hyperactivity disorder, 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 Active confirmed Vital Signs Heart Rate 78 /min 11/23/2024 Blood pressure diastolic 79 mm Hg 11/23/2024 Height-cm 157.48 cm 11/23/2024 Weight-kg 59.42 kg 11/23/2024 Height 62.00 in 11/23/2024 Blood pressure systolic 135 mm Hg 11/23/2024 Weight 131 lbs 11/23/2024 BMI 23.96 kg/m2 11/23/2024 Encounters Encounter Location Date Provider Diagnosis [facility] [employer] [facility] [address] [facility] [address] [address] 11/23/2024 Francois Lopez Encounter for screen ing for cardiovascular disorders Z13.6 ; Negative depression screening Z13.31 ; Benign essential HTN I10 ; Generalized anxiety disorder F41.1 ; Major depressive disorder, recurrent, mild F33.0 and Attention-deficit hyperactivity disorder, predominantly inattentive type F90.0 [facility] [employer] [facility] [address] [facility] [address] [address] 02/28/2024 Francois Lopez Generalized anxiety disorder F41.1 ; Major depressive disorder, recurrent, mild F33.0 and Attention-deficit hyperactivity disorder, predominantly inattentive type F90.0 [facility] [employer] [facility] [address] [facility] [address] [address] 05/18/2024 Francois Lopez Generalized anxiety disorder F41.1 ; Major depressive disorder, recurrent, mild F33.0 and Attention-deficit hyperactivity disorder, predominantly inattentive type F90.0 [facility] [employer] [facility] [address] [facility] [address] [address] 08/17/2024 Francois Lopez Benign essential HTN I10 ; Generalized anxiety disorder F41.1 ; Major depressive disorder, recurrent, mild F33.0 and Attention-deficit hyperactivity disorder, predominantly inattentive type F90.0 [facility] [employer] [facility] [address] [place] [address] 01/04/2024 Francois Lopez [facility], [facility] [address] [place] [address] 01/07/2024 Arely Sánchez [facility], [facility] [address] [place] [address] 01/07/2024 Francois Lopez [facility], [facility] [address] [place] [address] 01/10/2024 Jeri Kurilla Attention-deficit hyperactivity disorder, unspecified type F90.9 [facility], [facility] [address] [place] [address] 02/08/2024 Francois Lopez Attention-deficit hyperactivity disorder, predominantly inattentive type F90.0 [facility], [facility] [address] [place] [address] 03/09/2024 Francois Lopez Attention-deficit hyperactivity disorder, predominantly inattentive type F90.0 [facility], [facility] [address] [place] [address] 04/07/2024 Francois Lopez Attention-deficit hyperactivity disorder, predominantly inattentive type F90.0 [facility], [facility] [address] [place] [address] 05/09/2024 Francois Lopez Attention-deficit hyperactivity disorder, predominantly inattentive type F90.0 [facility], [facility] [address] [place] [address] 06/09/2024 Francois Lopez Attention-deficit hyperactivity disorder, predominantly inattentive type F90.0 [facility], [facility] [address] [place] [address] 07/13/2024 Jeri Kurilla Attention-deficit hyperactivity disorder, predominantly inattentive type F90.0 [facility], [facility] [address] [place] [address] 08/14/2024 Francois Lopez Attention-deficit hyperactivity disorder, predominantly inattentive type F90.0 [facility], [facility] [address] [place] [address] 09/11/2024 Francois Lopez Attention-deficit hyperactivity disorder, predominantly inattentive type F90.0 [facility], [facility] [address] [place] [address] 10/13/2024 Francois Lopez Attention-deficit hyperactivity disorder, predominantly inattentive type F90.0 [facility] [employer] [facility] [address] [place] [address] 11/13/2024 Francois Lopez Attention-deficit hyperactivity disorder, predominantly inattentive type F90.0 Assessments Encounter Date Diagnosis (ICD Code) Assessment Notes Treatment Notes Treatment Clinical Notes Section Notes 07/13/2024 Attention-deficit hyperactivity disorder, predominantly inattentive type (ICD-10 - F90.0) 05/09/2024 Attention-deficit hyperactivity disorder, predominantly inattentive type (ICD-10 - F90.0) 04/07/2024 Attention-deficit hyperactivity disorder, predominantly inattentive type (ICD-10 - F90.0) 06/09/2024 Attention-deficit hyperactivity disorder, predominantly inattentive type (ICD-10 - F90.0) 05/18/2024 Generalized anxiety disorder (ICD-10 - F41.1) [...] mg prescriptions . - Send refills to [facility] in [place]. 5. Follow-up: Plan: - Schedule a follow-up appointment to monitor patient's mood, anxiety, ADHD symptoms, and progress with physical injuries. - Adjust treatment plan as needed based on patient's progress and any new concerns that may arise. 08/17/2024 Benign essential HTN (ICD-10 - I10) 03/09/2024 Attention-deficit hyperactivity disorder, predominantly inattentive type (ICD-10 [...] medication effectiveness , and address any concerns. 11/23/2024 Encounter for screening for cardiovascular disorders (ICD-10 - Z13.6) 11/13/2024 Attention-deficit hyperactivity disorder, predominantly inattentive type (ICD-10 - F90.0) 09/11/2024 Attention-deficit hyperactivity disorder, predominantly inattentive type (ICD-10 - F90.0) 10/13/2024 Attention-deficit hyperactivity disorder, predominantly inattentive type (ICD-10 - F90.0) 01/10/2024 Attention-deficit hyperactivity disorder, unspecified type (ICD-10 - F90.9) 02/08/2024 Attention-deficit hyperactivity disorder, predominantly inattentive type (ICD-10 - F90.0) 08/14/2024 Attention-deficit hyperactivity disorder, predominantly inattentive type (ICD-10 - F90.0) 11/23/2024 Negative depression screening (ICD-10 - Z13.31) 08/17/2024 Generalized anxiety disorder (ICD-10 - F41.1) stable 02/28/2024 Major depressive disorder, recurrent, mild (ICD-10 [...] effectiveness , and address any concerns. 05/18/2024 Major depressive disorder, recurrent, mild (ICD-10 [...] mg prescriptions . - Send refills to [facility] in [place]. 5. Follow-up: Plan: - Schedule a follow-up appointment to monitor patient's mood, anxiety, ADHD symptoms, and progress with physical injuries. - Adjust treatment plan as needed based on patient's progress and any new concerns that may arise. 05/18/2024 Attention-deficit hyperactivity disorder, predominantly inattentive type (ICD-10 [...] mg prescriptions . - Send refills to [facility] in [place]. 5. Follow-up: Plan: - Schedule a follow-up appointment to monitor patient's mood, anxiety, ADHD symptoms, and progress with physical injuries. - Adjust treatment plan as needed based on patient's progress and any new concerns that may arise. 02/28/2024 Attention-deficit hyperactivity disorder, predominantly inattentive type (ICD-10 [...] Extended Release 24 Hour 150 MG). 11/23/2024 Benign essential HTN (ICD-10 - I10) 11/23/2024 Generalized anxiety disorder (ICD-10 - F41.1) stable 08/17/2024 Attention-deficit hyperactivity disorder, predominantly inattentive type (ICD-10 - F90.0) Adderall xr 15mg daily 11/23/2024 Major depressive disorder, recurrent, mild (ICD-10 [...] Treatment Next Appt Details Provider Name:Francois granados, 02/22/2025 11:30:00 AM, [address] [facility] [address], [facility] [address], [place], [address], Insurance Providers Payer Name Payer Address Payer Phone Subscriber Number Group Number Insured Name Patient Relationship to Insured Coverage Start Date Coverage End Date Medicare-I l Medicare [address] [place] [phone] [id number] MEGHAN JUNG Self - patient is the insured [facility] [address] [place] [address] [id number] MEGHAN JUNG Self - patient is the insured Medical (General) History Medical History History ICD Code Problems: Attention deficit hyperactivit y disorder Attention deficit hyperactivity disorder , predominantly inattentive type Generalized anxiety disorder Long-term current use of drug therapy Long-term drug therapy Mild recurrent major depression , Surgical History Surgery Date(Month/Year) Other
--- OUTSIDE RECORDS SUMMARY | 2024-11-30 02:13 | XMS_ITS | Encounter Summary ---
Author Organization [facility] Healthcare Address [address] [place] [address] Care Team Providers Care Procurement Coordinator Name Role Phone Iban Jeffery MD Primary Care Provider [phone] Higinio Barnes MD Primary Care Provider [phone] Encounter Details Date Type Department Care Team (Late st Contact Info) Description 03/24/2022 Telephone [facility] Radiology [address] [place] [address] René Mcmullen MD [address] [facility] [address] [place] [address] Social History Tobacco Use Types Packs/Day Years Used Date Smoking Tobacco: Former Smokeless Tobacco: Never Alcohol Use Standard Drinks/Week Comments No 0 (1 standard drink = 0.6 oz pur e alcohol) Comments No Sex and Gender Information Value Date Recorded Sex Assigned at Not on file Legal Sex Female 12:30 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
[2024-11-30 07:14] VITALS: BP 121/69; PULSE 82; RESP 16; TEMP 36.6; O2SAT 98; BMI 23.3
[2024-11-30] MEDS: LACTATED RINGERS 1,000 ML 150 ML IV CONT (07:31)
--- NOTE | 2024-11-30 07:49 | PM.IMHP ---
H&P: HPI History of Present Illness Date/Time: 11/30/24 07:49 Chief Complaint: screening colonoscopy Narrative: This is the patient's 2nd colonoscopy after 10 years. There are no GI symptoms and there is no family history of colorectal cancer. Review of Systems Review of Systems: All systems reviewed & are unremarkable except as noted in HPI and below PMFSH Past Medical History Medical History Cubital tunnel syndrome on left Adult idiopathic generalized osteoporosis Multiple sclerosis Attention-deficit hyperactivity disorder, unspecified type Depression Essential (primary) hypertension Mixed hyperlipidemia Surgical History Surgical History History of throat surgery removal of polyp H/O breast biopsy History of bunionectomy Family History Family History Father Hypertension Sibling Family history of lupus erythematosus Family history of malignant neoplasm of breast in first degree relative Mother Family history of mental disorder Patient's mother is in good health Other Family history of elevated blood lipids Family history of multiple sclerosis Social History Social History Smoking packs per day: 1 Smoking cigarettes per day: 20.0 Years smoked: 12 Smoking pack-years: 12.00 Smoking status: Former smoker Second hand tobacco smoke exposure: No Smoking end date: 07/05/87 Alcohol intake: never Substance use: former Substance use type: marijuana Other substance usage details: had to stop in order to get Adderall Last use: end january Lack of Transportation: No Lack of Food: Never True Current Housing: I Have Housing Concerned About Future Housing: No Difficulty Paying Gas/Electric Bills: No Difficulty Paying for Meds: No Currently Unemployed: No Education: High School Diploma/GED Difficulty w/ Childcare or Family Care: No Living arrangements: with family Additional living arrangements comments: Occupation/Education: retired Gender identity (if verbalized by the patient): Female Sexual Orientation (if Verbalized by the Patient): Straight or Heterosexual Meds Home Medications and Allergies Home Medications ?Medication ?Instructions ?Recorded ?Confirmed ?Type lamotrigine 100 mg tablet 100 mg PO DAILY 06/21/19 11/30/24 History multivitamin (Daily Multi-Vitamin 1 tablet PO DAILY 11/24/19 11/30/24 History tablet) dextroamphetamine-amphetamine ER 15 mg PO DAILY 01/04/23 11/30/24 History 15 mg 24hr capsule,extend release duloxetine 60 mg capsule,delayed 60 mg PO DAILY #90 caps 04/29/23 11/30/24 Rx release ibuprofen 600 mg tablet 600 mg PO TID PRN pain #90 tabs 11/23/23 11/23/24 Rx teriparatide 20 mcg/dose (560 20 mcg subcut DAILY 12/17/23 11/30/24 History mcg/2.24 mL) subcutaneous pen injector (Forteo) famotidine 20 mg tablet See Rx Instructions .Route 06/13/24 11/30/24 Rx .COMPLEX #180 tabs bupropion HCl 150 mg 24 hr tablet, 150 mg PO QAM 09/06/24 11/30/24 History extended release amlodipine 2.5 mg tablet 2.5 mg PO DAILY #90 tabs 09/27/24 11/30/24 Rx atorvastatin 20 mg tablet See Rx Instructions .Route 09/27/24 11/30/24 Rx .COMPLEX #90 tabs losartan 100 See Rx Instructions .Route 09/27/24 11/30/24 Rx mg-hydrochlorothiazide 12.5 mg .COMPLEX #90 tabs tablet Allergies Allergy/AdvReac Type Severity Reaction Status Date / Time Penicillins Allergy Unknown Hives Verified 11/30/24 07:18 Vital Signs Vital Signs - 24 hr 11/30/24 07:14 Temperature 97.9 F Pulse Rate 82 Respiratory Rate 16 Blood Pressure 121/69 Pulse Oximetry 98 Oxygen Delivery Room Air Exam Const: General: cooperative and healthy appearing Resp: Effort & Inspection: normal respiratory effort and able to speak in complete sentences Auscultation: clear to auscultation bilaterally Cardio: Rate: regular rate Rhythm: regular rhythm GI: Inspection: normal to inspection GI Palp: No No hepatosplenomegaly present Auscultation: normal bowel sounds Rectal Exam: deferred Skin: General skin exam: normal color Psych: Appearance: grossly normal Mental Status: mental status grossly normal Assessment and Plan Assessment and plan (1) Colon cancer screening: Code(s): Z12.11 - Encounter for screening for malignant neoplasm of colon Status: Acute Assessment and Plan: The patient is deemed a good candidate for the procedure. Consent signed. Will proceed.
--- NOTE | 2024-11-30 08:12 | P.PNAN_ITS ---
Anes - Initial Pre Proc Eval Procedure: Operation Date: 11/30/24 08:30 Proposed Procedures p Screening Colonoscopy - Jakub Sanders MD Date/Time: 11/30/24 08:12 Surgeon: Jakub Sanders MD Pre Op Diagnosis: Encounter for screening for malignant neoplasm of Patient Data Age: 69 Gender: F Height: 1.57 m Weight: 57.8 kg Last Vital Signs Temp 97.9 F 11/30/24 07:14 Pulse 82 11/30/24 07:14 Resp 16 11/30/24 07:14 BP 121/69 11/30/24 07:14 Pulse Ox 98 11/30/24 07:14 O2 Del Method Room Air 11/30/24 07:14 Allergies Allergy/AdvReac Type Severity Reaction Status Date / Time Penicillins Allergy Unknown Hives Verified 11/30/24 07:18 Home Medications ?Medication ?Instructions ?Recorded ?Confirmed ?Type lamotrigine 100 mg tablet 100 mg PO DAILY 06/21/19 11/30/24 History multivitamin (Daily Multi-Vitamin 1 tablet PO DAILY 11/24/19 11/30/24 History tablet) dextroamphetamine-amphetamine ER 15 mg PO DAILY 01/04/23 11/30/24 History 15 mg 24hr capsule,extend release duloxetine 60 mg capsule,delayed 60 mg PO DAILY #90 caps 04/29/23 11/30/24 Rx release ibuprofen 600 mg tablet 600 mg PO TID PRN pain #90 tabs 11/23/23 11/23/24 Rx teriparatide 20 mcg/dose (560 20 mcg subcut DAILY 12/17/23 11/30/24 History mcg/2.24 mL) subcutaneous pen injector (Forteo) famotidine 20 mg tablet See Rx Instructions .Route 06/13/24 11/30/24 Rx .COMPLEX #180 tabs bupropion HCl 150 mg 24 hr tablet, 150 mg PO QAM 09/06/24 11/30/24 History extended release amlodipine 2.5 mg tablet 2.5 mg PO DAILY #90 tabs 09/27/24 11/30/24 Rx atorvastatin 20 mg tablet See Rx Instructions .Route 09/27/24 11/30/24 Rx .COMPLEX #90 tabs losartan 100 See Rx Instructions .Route 09/27/24 11/30/24 Rx mg-hydrochlorothiazide 12.5 mg .COMPLEX #90 tabs tablet Patient hx anesthesia problems: none Family hx anesthesia problems: none Results Review: All pre-operative results and documents have been reviewed as part of the pre- operative evaluation. [facility] Past Medical History Medical History Cubital tunnel syndrome on left Adult idiopathic generalized osteoporosis Multiple sclerosis Attention-deficit hyperactivity disorder, unspecified type Depression Essential (primary) hypertension Mixed hyperlipidemia Surgical History Surgical History History of throat surgery removal of polyp H/O breast biopsy History of bunionectomy Family History Family History Father Hypertension Sibling Family history of lupus erythematosus Family history of malignant neoplasm of breast in first degree relative Mother Family history of mental disorder Patient's mother is in good health Other Family history of elevated blood lipids Family history of multiple sclerosis Social History Social History Smoking packs per day: 1 Smoking cigarettes per day: 20.0 Years smoked: 12 Smoking pack-years: 12.00 Smoking status: Former smoker Second hand tobacco smoke exposure: No Smoking end date: 07/05/87 Alcohol intake: never Substance use: former Substance use type: marijuana Other substance usage details: had to stop in order to get Adderall Last use: end of January Lack of Transportation: No Lack of Food: Never True Current Housing: I Have Housing Concerned About Future Housing: No Difficulty Paying Gas/Electric Bills: No Difficulty Paying for Meds: No Currently Unemployed: No Education: High School Diploma/GED Difficulty w/ Childcare or Family Care: No Living arrangements: with family Additional living arrangements comments: Occupation/Education: retired Gender identity (if verbalized by the patient): Female Sexual Orientation (if Verbalized by the Patient): Straight or Heterosexual Anes - Eval Final PreProcedure Day of Procedure 11/30/24 08:12 Patient weight: normal Heart: regular rate and rhythm Lungs: clear to auscultation Airway: Mallampati scale class II Neurological: alert and oriented Last oral intake: >/= 8 hours ASA classification: III Emergent: no Anesthetic plan: proceed Anesthesia type and monitoring: general GIVS and standard monitoring Results Review: All pre-operative results and documents have been reviewed as part of the pre- operative evaluation. Informed Consent: The patient's anesthetic plan and its attendant risks and benefits were discussed with the patient/family/POA. Questions were solicited and answers provided to the satisfaction of the patient/family/POA.
[2024-11-30 08:32] VITALS: BP 106/63; PULSE 70; RESP 17; O2SAT 100
[2024-11-30 08:42] VITALS: BP 119/72; PULSE 79; RESP 17; O2SAT 100
[2024-11-30 08:52] VITALS: BP 123/65; PULSE 74; RESP 22; O2SAT 100
== END 2024-11-30 09:02 | disposition home or self-care (01) ==
PROVIDERS: PCP Family Medicine; Referring Provider Family Medicine; Visit Provider Internal Medicine Gastroenterology
PROC: 0DJD8ZZ Inspection of Lower Intestinal Tract, Via Natural or Artificial Opening Endoscopic (ICD-10-PCS; CPT 45378; principal; 2024-11-30 08:30)
DX: Z12.11 Encounter for screening for malignant neoplasm of colon (principal); I10 Essential (primary) hypertension; E78.2 Mixed hyperlipidemia; G35 Multiple sclerosis; F32.A Depression, unspecified; M81.8 Other osteoporosis without current pathological fracture; F90.9 Attention-deficit hyperactivity disorder, unspecified type; G56.02 Carpal tunnel syndrome, left upper limb; Z79.1 Long term (current) use of non-steroidal anti-inflammatories (NSAID); Z79.85 Long-term (current) use of injectable non-insulin antidiabetic drugs; Z98.890 Other specified postprocedural states; Z87.891 Personal history of nicotine dependence; Z80.3 Family history of malignant neoplasm of breast
CPT/HCPCS: G0105; J2003; J2704; J7120

== ENCOUNTER 2024-12-17 16:51 | Emergency (ER) | payer MEDICARE, SELFPAY ==
--- NOTE | ~2024-12-17 | XR_ITS ---
Exam: Abdomen 1V HISTORY: constipation SINCE PREV COLONOSCOPY 2 WEEKS AGO COMPARISON: None. TECHNIQUE: Supine images of the abdomen FINDINGS: Bowel gas pattern is nonspecific and non-obstructive. There is no free air or deep sulci. No pathologic calcifications are seen. Fecal stasis within the colon. No air within the rectum. Lung bases are unremarkable. Bones and soft tissues are unremarkable. IMPRESSION: Nonspecific, nonobstructive bowel gas pattern, with fecal stasis within the colon. Reviewed, dictated and finalized at location A. IMPRESSION: Nonspecific, nonobstructive bowel gas pattern, with fecal stasis within the col on.
--- OUTSIDE RECORDS SUMMARY | 2024-12-17 16:53 | XMS_ITS | Clinical Summary ---
Author Organization [facility] Address [address] [facility] Attn: Teresita Prejosefina ADT [place] [address] Care Team Providers Care Professor Of Environmental Science Name Role Phone Unavailable Primary Care Provider [...] daily. 30 Tablet 3 05/26/2022 11:59 AM AGENCY OWNER 2 Active buPROPion HCL (WELLBUTRIN XL) 150 [...] daily. 90 Tablet 1 07/02/2022 12:11 PM AGENCY OWNER 2 Active buPROPion HCL (WELLBUTRIN XL) 150 mg Extended Release 24 hour tablet Take 1 Tablet (150 mg) by mouth daily in the morning. 30 Tablet 3 04/28/2023 2:43 PM CDT 2 Active DULoxetine (CYMBALTA) 60 mg Capsule, Delayed Release(E.C.) Take 1 Capsule (60 mg) by mouth daily. 30 Capsule 3 08/16/2022 12:21 PM AGENCY OWNER 2 Active lamoTRIgine (LaMICtal) 100 mg tablet Take 1 Tablet (100 mg) by mouth daily. 30 Tablet 3 08/25/2022 3:31 PM AGENCY OWNER 2 Active amphetamine-dex troamphetamine (ADDERALL XR) 15 mg Extended Release 24 hour capsule Take 1 Capsule (15 mg) by mouth daily in the morning. 30 Capsule 3 Active methylphenidate HCl (Concerta) 18 mg Extended Release tablet Take 1 Tablet (18 mg) by mouth daily in the morning. Max Daily Amount: 18 mg 30 Tablet 08/30/2022 12:40 PM AGENCY OWNER 3 Active amLODIPine (NORVASC) 2.5 mg tablet [...] DAILY 90 Tablet 1 07/22/2023 2:57 PM AGENCY OWNER 3 Active cyclobenzaprine (FLEXERIL) 10 mg tablet [...] daily. 90 Tablet 1 07/12/2023 9:27 AM AGENCY OWNER 3 Active atorvastatin (LIPITOR) 20 mg tablet TAKE ONE TABLET BY MOUTH ONCE DAILY 90 Tablet 1 07/12/2023 9:27 AM AGENCY OWNER 3 Active DULoxetine (CYMBALTA) 60 mg Capsule, Delayed Release(E.C.) Take 1 Capsule (60 mg) by mouth daily. 90 Capsule 1 07/28/2023 2:15 PM AGENCY OWNER 3 Active ibuprofen (MOTRIN) 600 mg tablet Take 1 Tablet (600 mg) by mouth 3 times daily as needed for pain. TAKE WITH FOOD 90 Tablet 1 08/17/2023 2:45 PM AGENCY OWNER 3 Active buPROPion HCL (WELLBUTRIN XL) 150 mg Extended Release 24 hour tablet Take 1 Tablet (150 mg) by mouth daily in the morning. 30 Tablet 3 07/12/2023 9:27 AM AGENCY OWNER 3 Active lamoTRIgine (LaMICtal) 100 mg tablet Take 1 Tablet (100 mg) by mouth daily. 30 Tablet 3 07/22/2023 2:57 PM AGENCY OWNER 3 Active buPROPion HCL (WELLBUTRIN XL) 150 [...] daily. 90 Capsule 1 07/03/2024 3:43 PM AGENCY OWNER 4 Active lamoTRIgine (LaMICtal) 100 mg tablet Take 1 Tablet (100 mg) by mouth daily. 90 Tablet 1 08/22/2024 12:25 PM AGENCY OWNER 4 Active buPROPion HCL (WELLBUTRIN XL) 150 [...] 1 09/27/2024 7:15 PM CDT 5 Active lamoTRIgine (LaMICtal) 100 mg tablet Take 1 Tablet (100 mg) by mouth daily. 90 Tablet 1 5 Active famotidine (PEPCID) 20 mg tablet Take 1 Tablet (20 mg) by mouth 2 times daily. 180 Tablet 1 12/06/2024 11:16 AM CDT 5 Active amphetamine-dex troamphetamine (ADDERALL XR) 15 mg Extended Release 24 hour capsule Take 1 Capsule (15 mg) by mouth daily in the morning. Max Daily Amount: 15 mg 30 Capsule 12/14/2024 2:58 PM CDT 5 Active famotidine (PEPCID) 20 mg tablet Take 1 Tablet (20 mg) by mouth 2 times daily. 180 Tablet 1 09/07/2024 8:08 AM AGENCY OWNER 4 12/06/19 25 Discontinu ed(Reorder ) amphetamine-dex troamphetamine (ADDERALL XR) 15 mg Extended Release 24 hour capsule Take 1 Capsule (15 mg) by mouth daily. Max Daily Amount: 15 mg 30 Capsule 11/14/2024 11:38 AM CDT 5 12/13/19 25 Discontinu ed(Reorder ) Social History Tobacco [...]
--- OUTSIDE RECORDS SUMMARY | 2024-12-17 16:53 | XMS_ITS | Encounter Summary ---
Author Organization [facility] Address [address] [place] [address] Phone Care Team Providers Care Azure Architect Name Role Phone Kailash Webb MD Primary Care Provider [phone] Iban Jeffery MD Primary Care Provider [phone] Higinio Barnes MD Primary Care Provider [phone] Encounter Details Date Type Department Care Team [...] on file Legal Sex Female 12:30 AM JACKAROO Gender Identity Female 03/30/2023 12:11 PM CDT [...] on filedocumented in this encounter Care Teams Azure Architect Relationship Specialty Start Date End Date Kailash Webb MD [address] [place] [address] PCP - General 09/21/17 06/11/19 Iban Jeffery MD [address] [facility] [address] [place] [address] PCP - General 06/12/19 03/07/24 Higinio Barnes MD [address] [facility] [address] [place] [address] PCP - General Family Practice 03/08/24 documented as of this encounter
--- OUTSIDE RECORDS SUMMARY | 2024-12-17 16:53 | XMS_ITS | Encounter Summary ---
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
--- OUTSIDE RECORDS SUMMARY | 2024-12-17 16:54 | XMS_ITS | Patient Health Record ---
Author Organization [facility] [employer] [facility] Address [address] [place] [address] Care Team Providers Care Airline Counter Agent Name Role Phone Higinio Barnes MD Primary Care Provider Francois Wood Unavailable [phone] Jeri Khan Unavailable [phone] Arely Sánchez Unavailable [phone] Allergies Allergen (clinical drug ingredient) Drug/Non Drug Allergy documented on EMR Reaction Allergy Type Onset Date Status Substance with penicillin structure and antibacterial mechanism of action (substance) Penicillins Unknown Drug Allergy 08/10/2023 Active Results Component Value Reference Range Notes UDT Reviewed date:08/17/2024 01:20:24 PM Interpretation: Performing Lab: Notes/Report: THC P 0 - 50 ng/ml Cocaine N 0 - 300 ng/ml Amphetamine P 0 - 1000 ng/ml Buprenorphine (BUP) N 0 - 10 ng/ml Secobarbital (Bar) N 0 - 300 ng/ml Oxazepam (BZO) N 0 - 300 ng/ml 6-iuexgswetk-1,9-ofufixfe-7, 3-diphenylpyrrolidine (EDDP) N 0 - 300 ng/ml Methamphetamine (MET) N 0 - 1000 ng/ml Methylenedioxymethamphetamine (MDMA) N 0 - 500 ng/ml Morphine (MOP 300/[id number]) N 0 - 300 ng/ml Methadone (MTD) N 0 - 300 ng/ml Phencyclidine (PCP) N 0 - 25 ng/ml Nortriptyline (TCA) N 0 - 1000 ng/ml Oxycodone N 0 - 300 ng/ml x N 0 - 300 ng/ml UDT Reviewed date:02/28/2024 11:17:23 AM Interpretation: Performing Lab: Notes/Report: THC Negative 0 - 50 ng/ml Cocaine Negative 0 - 300 ng/ml Amphetamine Negative 0 - 1000 ng/ml Buprenorphine (BUP) Negative 0 - 10 ng/ml Secobarbital (Bar) Negative 0 - 300 ng/ml Oxazepam (BZO) Negative 0 - 300 ng/ml 0-ohmmkwqogi-3,4-redtrrcp-1, 3-diphenylpyrrolidine (EDDP) Negative 0 - 300 ng/ml Methamphetamine (MET) Negative 0 - 1000 ng/ml Methylenedioxymethamphetamine (MDMA) Negative 0 - 500 ng/ml Morphine (MOP 300/[id number]) Negative 0 - 300 ng/ml Methadone (MTD) Negative 0 - 300 ng/ml Phencyclidine (PCP) Negative 0 - 25 ng/ml Nortriptyline (TCA) Negative 0 - 1000 ng/ml Oxycodone Negative 0 - 300 ng/ml x Negative 0 - 300 ng/ml Reason For Referral No Information Medications Medication SIG (Take, Route, Frequency, Duration) Notes Start Date End Date Status Amphetamine-Dextroamphet ER 15 MG 1 capsule in the morning Orally Once a day for 30 days 12/12/2024 Active buPROPion HCl ER (XL) 150 MG [...] Risk Notes Problem Mild recurrent major depression (99752225) Major depressive disorder, recurrent, mild (F33.0) 11/17/19 Active confirmed Problem Generalized anxiety disorder (53531344) Generalized anxiety disorder (F41.1) 11/17/19 Active confirmed Problem Attention deficit hyperactivity disorder, predominantly inattentive type (22193672) Attention-deficit hyperactivity disorder, predominantly inattentive type (F90.0) 11/17/19 Active confirmed Vital Signs Heart Rate 78 /min 11/23/2024 Height-cm 157.48 cm 11/23/2024 Blood pressure diastolic 79 mm Hg 11/23/2024 Weight-kg 59.42 kg 11/23/2024 Height 62.00 in 11/23/2024 Blood pressure systolic 135 mm Hg 11/23/2024 Weight 131 lbs 11/23/2024 BMI 23.96 kg/m2 11/23/2024 Encounters Encounter Location Date Provider Diagnosis [employer] [facility] [address] [facility] [address] [place] [address] 02/28/2024 Francois Lopez Generalized anxiety disorder F41.1 ; Major depressive disorder, recurrent, mild F33.0 and Attention-deficit hyperactivity disorder, predominantly inattentive type F90.0 [facility] [employer] [facility] [address] [place] [address] 05/18/2024 Francois Lopez Generalized anxiety disorder F41.1 ; Major depressive disorder, recurrent, mild F33.0 and Attention-deficit hyperactivity disorder, predominantly inattentive type F90.0 [facility] [employer] [facility] [address] [place] [address] 08/17/2024 Francois Lopez Benign essential HTN I10 ; Generalized anxiety disorder F41.1 ; Major depressive disorder, recurrent, mild F33.0 and Attention-deficit hyperactivity disorder, predominantly inattentive type F90.[address] [employer] [facility] [address] [place] [address] 11/23/2024 Francois Lopez Encounter for screen ing for cardiovascular disorders Z13.6 ; Negative depression screening Z13.31 ; Benign essential HTN I10 ; Generalized anxiety disorder F41.1 ; Major depressive disorder, recurrent, mild F33.0 and Attention-deficit hyperactivity disorder, predominantly inattentive type F90.0 [facility], [facility] [address] [place] [address] 01/04/2024 Francois Lopez [facility], [facility] [address] [place] [address] 01/07/2024 Arely Sánchez [facility], [facility] [address] [place] [address] 01/07/2024 Francois Lopez [facility], [facility] [address] [place] [address] 01/10/2024 Jeri Kurilla Attention-deficit hyperactivity disorder, unspecified type F90.9 [facility], [facility] [address] [place] [address] 02/08/2024 Francois Lopez Attention-deficit hyperactivity disorder, predominantly inattentive type F90.0 [facility], [facility] [address] [place] [address] 03/09/2024 Francois Lopez Attention-deficit hyperactivity disorder, predominantly inattentive type F90.0 [facility], [facility] [address] [place] [address] 04/07/2024 Francois Lopez Attention-deficit hyperactivity disorder, predominantly inattentive type F90.0 [facility], [facility] [address] [place] [address] 05/09/2024 Francois Lopez Attention-deficit hyperactivity disorder, predominantly inattentive type F90.0 [facility], [facility] [address] [place] [address] 06/09/2024 Francois Lopez Attention-deficit hyperactivity disorder, predominantly inattentive type F90.0 [facility], [facility] [address] [place] [address] 07/13/2024 Jeri Kurilla Attention-deficit hyperactivity disorder, predominantly inattentive type F90.0 [facility], [facility] [address] [place] [address] 08/14/2024 Francois Lopez Attention-deficit hyperactivity disorder, predominantly inattentive type F90.0 [facility], [facility] [address] [place] [address] 09/11/2024 Francois Lopez Attention-deficit hyperactivity disorder, predominantly inattentive type F90.0 [facility] [employer] [facility] [address] [place] [address] 10/13/2024 Francois Lopez Attention-deficit hyperactivity disorder, predominantly inattentive type F90.[address] [facility] [address] [place] [address] 11/13/2024 Francois Lopez Attention-deficit hyperactivity disorder, predominantly inattentive type F90.[address] [facility] [address] [place] [address] 12/11/2024 Francois Lopez Attention-deficit hyperactivity disorder, predominantly inattentive type F90.0 Assessments Encounter Date Diagnosis (ICD Code) Assessment Notes Treatment Notes Treatment Clinical Notes Section Notes 04/07/2024 Attention-deficit hyperactivity disorder, predominantly inattentive type (ICD-10 - F90.0) 05/09/2024 Attention-deficit hyperactivity disorder, predominantly inattentive type (ICD-10 - F90.0) 06/09/2024 Attention-deficit hyperactivity disorder, predominantly inattentive type (ICD-10 - F90.0) 07/13/2024 Attention-deficit hyperactivity disorder, predominantly inattentive type [...] mg prescriptions . - Send refills to [facility] in [place]. 5. Follow-up: Plan: - Schedule a follow-up appointment to monitor patient's mood, anxiety, ADHD symptoms, and progress with physical injuries. - Adjust treatment plan as needed based on patient's progress and any new concerns that may arise. 08/17/2024 Benign essential HTN (ICD-10 - I10) 09/11/2024 Attention-deficit hyperactivity disorder, predominantly inattentive type (ICD-10 - F90.0) 10/13/2024 Attention-deficit hyperactivity disorder, predominantly inattentive type (ICD-10 - F90.0) 11/13/2024 Attention-deficit hyperactivity disorder, predominantly inattentive type (ICD-10 - F90.0) 11/23/2024 Encounter for screening for cardiovascular disorders (ICD-10 - Z13.6) 03/09/2024 Attention-deficit hyperactivity disorder, predominantly inattentive type (ICD-10 - F90.0) 12/11/2024 Attention-deficit hyperactivity disorder, predominantly inattentive type (ICD-10 [...] effectiveness , and address any concerns. 11/23/2024 Negative depression screening (ICD-10 - Z13.31) [...] mg prescriptions . - Send refills to [facility] in [place]. 5. Follow-up: Plan: - Schedule a follow-up [...] Extended Release 24 Hour 150 MG). 05/18/2024 Attention-deficit hyperactivity disorder, predominantly inattentive type [...] mg prescriptions . - Send refills to [facility] in [place]. 5. Follow-up: Plan: - Schedule a follow-up appointment to monitor patient's mood, anxiety, ADHD symptoms, and progress with physical injuries. - Adjust treatment plan as needed based on patient's progress and any new concerns that may arise. 11/23/2024 Benign essential HTN (ICD-10 - I10) [...] patient's overall health and response to treatment 11/23/2024 Blake Lang, an adult female patient with a history of depression and ADHD, presents for a follow-up visit reporting overall good mental health and stable mood. Depression Assessment: Patient reports no significant depressive symptoms at present. She occasionally experiences mild self-criticism but denies persistent low mood. Patient attributes improvement to better stress management techniques, specifically rolling with the punches and thinking before reacting. Current medication regimen includes bupropion 150 mg daily, duloxetine 60 mg daily, and lamotrigine 100 mg daily. Plan: - Continue bupropion 150 mg daily - Continue duloxetine 60 mg daily - Continue lamotrigine 100 mg daily - Maintain current stress management techniques Attention Deficit Hyperactivity Disorder (ADHD) Assessment: Patient is currently managed on Adderall XR 15 mg daily. No specific concerns or side effects reported. Patient appears to be tolerating the medication well. Plan: - Continue Adderall XR 15 mg daily Medication Management Assessment: Patient reports feeling stable on current medication regimen without significant side effects or concerns. She states, I'm not having any ups and downs and weird stuff going on, indicating good medication efficacy and tolerability. Plan: - Continue current medication regimen as prescribed - Follow up in 3 months - Patient to leaf size picker bupropion prescription at pharmacy the note is transcribed using speech recognition software. It is a reflection of a visit with the patient. It might have some inaccuracy, including medication names and transcribing errors, though efforts have been made to correct them. Plan Of Treatment Next Appt Details Provider Name:Francois granados, 02/22/2025 11:30:00 AM, [address], [place], [address], Insurance Providers Payer Name Payer Address Payer Phone Subscriber Number Group Number Insured Name Patient Relationship to Insured Coverage Start Date Coverage End Date Medicare-I l Medicare [address] [place] [address] [id number] MEGHAN JUNG Self - patient is the insured [facility] [address] [place] [address] [id number] MEGHAN JUNG Self - patient is the insured Medical (General) History Medical History History ICD Code Problems: Attention deficit hyperactivit y disorder Attention deficit hyperactivity disorder , predominantly inattentive type Generalized anxiety disorder Long-term current use of drug therapy Long-term drug therapy Mild recurrent major depression , Surgical History Surgery Date(Month/Year) Other
--- OUTSIDE RECORDS SUMMARY | 2024-12-17 16:54 | XMS_ITS | Encounter Summary ---
Author Organization [facility] Address [address] [facility] 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
--- OUTSIDE RECORDS SUMMARY | 2024-12-17 16:54 | XMS_ITS | Continuity of Care Document ---
Author Organization [facility] Address [address] [place] [address] [address] [place] [address] Phone Care Team Providers Care Development Specialist Name Role Phone Vazquez OD, Erickson Unavailable Unavailable Procedures Procedure Date Eye Exam & Treatment Refraction Advance Directives Directive Yes / No Effective Date File Name No Information Encounters Encounter Description Practice Location Reason(s) For Visit Diagnoses Date Provider Providers Copied on Encounter [facility], [address] [place] [address] [address], [place], [place], [id number], [place] tel:[phone] [facility] No Information Sep- 1-200 8 Vazquez OD Erickson. [address] , [address], [place], [address], [place]. tel:[phone] Family History Family Member Type Diagnosis Age At Onset No Information Payers Payer name Insurance type Covered democrat ID Authoriza tion(s) No Information Social History [...]
--- OUTSIDE RECORDS SUMMARY | 2024-12-17 16:54 | XMS_ITS | Referral Summary ---
Author Organization [facility] Address [address] [place] [address] Care Team Providers Care Photocopier Technician Name Role Phone Higinio Barnes MD Primary Care Provider [phone] Encounters Date Type Department Care Team Description 10/10/2024 11:00 AM CDT Office Visit [facility] Multiple Sclerosis [address] [facility] 7th [place] [address] René Mcmullen MD Multiple sclerosis (HCC) (Primary Dx); Urinary urgency; Neurogenic bladder; Other fatigue 10/02/[address] [place] [address] Rock Neely MD from Last [...] on file Legal Sex Female 12:30 AM APPLICATION SUPPORT MANAGER Gender Identity Female 03/30/2023 12:11 PM CDT [...] 56.7 kg (125 lb) 05/11/2024 4:40 PM APPLICATION SUPPORT MANAGER Height 157.5 cm (5' 2) 05/11/2024 4:40 PM APPLICATION SUPPORT MANAGER Body Mass Index 22.86 05/11/2024 4:40 PM APPLICATION SUPPORT MANAGER Plan of Treatment Not on file Medical Devices Implanted Type Area Digital Media Designer Device Identifier Shelf Expiration Date Model / [...] Read Routine (OP Routine) 06/23/2021 8:51 AM APPLICATION SUPPORT MANAGER Encounter for screening mammogram for malignant neoplasm [...] Bone mineral density was performed on a [employer] Discovery Densitometer. Based on machine cross-calibration and [...] by the International Society of Clinical Densitometry. [id number] us Rock Neely MD IMG DXA PROCEDURES Final Resul t * Screening Mammogram Bilateral W Nuno (06/23/2021 8:51 AM APPLICATION SUPPORT MANAGER) Anatomical Region Laterality Modality Breast Bilateral Mammography Narrative 06/24/2021 7:45 AM APPLICATION SUPPORT MANAGER Mammogram Technique: Bilateral Digital Breast Tomosynthesis, Bilateral C-view 2D Screening mammogram. Views obtained: bilateral craniocaudal and bilateral mediolateral oblique. Computer Aided Detection was performed. Mammogram Findings: The present examination has been compared to prior imaging studies performed at [facility] on 06/20/2018, and at [facility] on 06/20/2019 and 06/21/2020. The breasts [...] compared to prior imaging studies performed at [facility] on 06/20/2018, and at [facility] on 06/20/2019 and 06/21/2020. The breasts [...] Recently Relevant to Health Maintenance Insurance [facility]ICARE [facility] MEDICARE SUPPLEMENT MEDICARE ANTH ACCESS CHOICE MEDICARE [facility] MEDICARE SUPPLEMENT Care Teams Photocopier Technician Relationship Specialty Start Date End Date Higinio Barnes MD PCP - General Family Practice 03/08/24
--- OUTSIDE RECORDS SUMMARY | 2024-12-17 16:54 | XMS_ITS | Clinical Summary ---
Author Organization [facility] Healthcare Address [address] [place] [address] Care Team Providers Care Field Representative/Health Education Name Role Phone Higinio Barnes MD Primary Care Provider [phone] Allergies Active Allergy Reactions Criticality Noted Date [...] Description 10/10/2024 11:00 AM CDT Office Visit [facility] Multiple Sclerosis [address] [facility] 7th [place] [phone] René Mcmullen MD Multiple sclerosis (HCC) (Primary Dx); Urinary urgency; Neurogenic bladder; Other fatigue 10/02/2024 Telephone [facility] Bone Health [address] [facility] [address] [place] [address] Rock Neely MD from Last [...] headache - (Added by TW Conv) Other chcf (current) drug therapy Encounter for long-term (current) [...] on file Legal Sex Female 12:30 AM DIRECTOR FIXED INCOME Gender Identity Female 03/30/2023 12:11 PM CDT [...] 56.7 kg (125 lb) 05/11/2024 4:40 PM DIRECTOR FIXED INCOME Height 157.5 cm (5' 2) 05/11/2024 4:40 PM DIRECTOR FIXED INCOME Body Mass Index 22.86 05/11/2024 4:40 PM DIRECTOR FIXED INCOME Plan of Treatment Health Maintenance Due Date [...] Discontinued 07/05/2014 Medical Devices Implanted Type Area Spin Tank Tender Device Identifier Shelf Expiration Date Model / [...] Read Routine (OP Routine) 06/23/2021 8:51 AM DIRECTOR FIXED INCOME Encounter for screening mammogram for malignant neoplasm [...] Bone mineral density was performed on a [employer] Discovery Densitometer. Based on machine cross-calibration and [...] by the International Society of Clinical Densitometry. [id number] us Rock Neely MD IMG DXA PROCEDURES Final Resul t * Screening Mammogram Bilateral W Nuno (06/23/2021 8:51 AM DIRECTOR FIXED INCOME) Anatomical Region Laterality Modality Breast Bilateral Mammography Narrative 06/24/2021 7:45 AM DIRECTOR FIXED INCOME Mammogram Technique: Bilateral Digital Breast Tomosynthesis, Bilateral C-view 2D Screening mammogram. Views obtained: bilateral craniocaudal and bilateral mediolateral oblique. Computer Aided Detection was performed. Mammogram Findings: The present examination has been compared to prior imaging studies performed at [facility] on 06/20/2018, and at [facility] on 06/20/2019 and 06/21/2020. The breasts are [...] compared to prior imaging studies performed at [facility] on 06/20/2018, and at [facility] on 06/20/2019 and 06/21/2020. The breasts are [...] Recently Relevant to Health Maintenance Insurance MEDICARE [facility] MEDICARE SUPPLEMENT MEDICARE ANTHEM ACCESS CHOICE MEDICARE [facility] MEDICARE SUPPLEMENT Care Teams Field Representative/Health Education Relationship Specialty Start Date End Date Higinio Barnes MD PCP - General Family Practice 03/08/24
--- OUTSIDE RECORDS SUMMARY | 2024-12-17 16:54 | XMS_ITS | Encounter Summary ---
Author Organization [facility] Healthcare Address [address] [place] [address] Care Team Providers Care International Coordinator Name Role Phone Iban Jeffery MD Primary Care Provider [phone] Higinio Barnes MD Primary Care Provider [phone] Encounter Details Date Type Department Care Team (Late st Contact Info) Description 03/24/2022 Telephone 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
[2024-12-17 17:14] VITALS: BP 120/62; PULSE 92; RESP 16; TEMP 36.6; O2SAT 100
[2024-12-17 17:49] VITALS: BP 116/71; O2SAT 98
[2024-12-17 17:55] VITALS: BP 124/57; PULSE 88; RESP 18; TEMP 36.7; O2SAT 100
[2024-12-17 18:01] VITALS: BP 117/69; O2SAT 97
[2024-12-17 18:12] LABS: Basophils Absolute Auto 0.1 K/mm3 (0.0-0.1); Basophils Percent Auto 1.8 % (0.2-1.2); Eosinophils Absolute Auto 0.2 K/mm3 (0-0.3); Eosinophils Percent Auto 2.1 % (0-4.4); Hematocrit 33.3 % (37.0-47.0); Hemoglobin 10.9 g/dL (12.0-15.0); Immature Granulocyte Absolute 0.01 K/mm3 (0.00-0.031); Immature Granulocyte Percent A 0.1 % (0-0.5); Lymphocytes Absolute Auto 1.95 K/mm3 (0.9-3.2); Lymphocytes Percent Auto 26.7 % (18.3-44.2); Mean Corpuscular HGB Conc 32.7 g/dl (32-36); Mean Corpuscular Hemoglobin 29.3 pg (26-34); Mean Corpuscular Volume 89.5 fl (80-100); Mean Platelet Volume 8.5 fl (7.4-10.4); Monocytes Absolute Auto 0.8 K/mm3 (0.1-0.6); Monocytes Percent Auto 10.9 % (2.6-8.5); Neutrophils Absolute Auto 4.3 K/mm3 (1.3-6.7); Neutrophils Percent Auto 58.4 % (45.5-73.1); Platelet Count Result 292 k/mm3 (150-375); Red Blood Count 3.72 M/mm3 (4.2-5.4); Red Cell Distribution Width 12.2 % (11.5-14.5); White Blood Count 7.3 K/mm3 (4.5-10.0)
[2024-12-17 18:13] LABS: BEDSIDEPREGUCG Negative (Negative)
[2024-12-17 18:18] LABS: Add Urine Microscopic? YES; Appearance Urine Clear (Clear); Bacteria Urine None Seen /hpf; Bilirubin Urine Negative (Negative); Blood Urine Negative (Negative); Color Urine Yellow (Yellow); Glucose Urine UA Negative (Negative); Ketones Urine Negative (Negative); Leukocyte Esterase Ur Trace LEU/UL (Negative); Nitrate Urine Negative (Negative); Non Pathogenic Casts 0-2; Protein Urine Negative (Negative); RBC Urine 0-2 /hpf (0-2); Specific Grav Ur 1.019 (1.001-1.035); Squamous Epithelial Cell Urine None Seen /hpf (Few); WBC Urine 0-5 /hpf (0-3)
[2024-12-17 18:25] LABS: Alanine Aminotransferase 27 U/L (6-35); Albumin Level 4.3 g/dL (3.5-5.1); Alkaline Phosphatase 70 U/L (38-126); Anion Gap 8 mmol/L (4-12); Aspartate Amino Transferase 31 U/L (14-36); Bilirubin,Total 0.2 mg/dL (0.2-1.3); Blood Urea Nitrogen 25 mg/dL (7-17); Calcium 9.9 mg/dL (8.4-10.2); Carbon Dioxide 28 mmol/L (22-30); Chloride 103 mmol/L (98-107); Estimated CRCL calculation 32 ml/min; Estimated Glomerular Filt Rate 46; Glucose 112 mg/dL (65-110); Lipase 147 U/L (23-300); Potassium 3.7 mmol/L (3.4-5.0); Sodium 139 mmol/L (137-145); Total Protein 7.2 g/dL (6.3-8.2)
--- OUTSIDE RECORDS SUMMARY | 2024-12-17 18:26 | XMS_ITS | Continuity of Care Document ---
Author Organization [facility] Address [address] [place] [address] [address] [place] [address] Phone Care Team Providers Care Human Resources Psychologist Name Role Phone Vazquez OD, Erickson Unavailable Unavailable Procedures Procedure Date Eye Exam & Treatment Refraction Advance Directives Directive Yes / No Effective Date File Name No Information Encounters Encounter Description Practice Location Reason(s) For Visit Diagnoses Date Provider Providers Copied on Encounter [facility], [address] [place] [address] [address], [place], [place], [id number], [place] tel:[phone] [facility] No Information Sep- 1-200 8 Vazquez OD Erickson. [address] , [address], [place], [address], [place]. tel:[phone] Family History Family Member Type Diagnosis Age [...]
--- OUTSIDE RECORDS SUMMARY | 2024-12-17 18:26 | XMS_ITS | Clinical Summary ---
Author Organization [facility] Healthcare Address [address] [place] [address] Care Team Providers Care Auxiliary Engineer Name Role Phone Higinio Barnes MD Primary Care Provider [phone] Allergies Active Allergy Reactions Criticality Noted Date [...] 10/10/2024 11:00 AM CDT Office Visit [facility] Multiple Sclerosis [address] [facility] 7th Floor [phone] René Mcmullen MD Multiple sclerosis (HCC) (Primary Dx); Urinary urgency; Neurogenic bladder; Other fatigue 10/02/2024 Telephone [facility] Bone Health [address] [facility] [address] [address] Rock Neely MD from Last 3 [...] headache - (Added by TW Conv) Other intermediate (current) drug therapy Encounter for long-term (current) [...] on file Legal Sex Female 12:30 AM HOIST MECHANIC Gender Identity Female 03/30/2023 12:11 PM [...] 56.7 kg (125 lb) 05/11/2024 4:40 PM HOIST MECHANIC Height 157.5 cm (5' 2) 05/11/2024 4:40 PM HOIST MECHANIC Body Mass Index 22.86 05/11/2024 4:40 PM HOIST MECHANIC Plan of Treatment Health Maintenance Due Date [...] Discontinued 07/05/2014 Medical Devices Implanted Type Area Signals Officer Device Identifier Shelf Expiration Date Model / [...] Read Routine (OP Routine) 06/23/2021 8:51 AM HOIST MECHANIC Encounter for screening mammogram for malignant neoplasm [...] Bone mineral density was performed on a [employer] Discovery Densitometer. Based on machine cross-calibration and [...] by the International Society of Clinical Densitometry. [id number] us Rock Neely MD IMG DXA PROCEDURES Final Resul t * Screening Mammogram Bilateral W Nuno (06/23/2021 8:51 AM HOIST MECHANIC) Anatomical Region Laterality Modality Breast Bilateral Mammography Narrative 06/24/2021 7:45 AM HOIST MECHANIC Mammogram Technique: Bilateral Digital Breast Tomosynthesis, Bilateral C-view 2D Screening mammogram. Views obtained: bilateral craniocaudal and bilateral mediolateral oblique. Computer Aided Detection was performed. Mammogram Findings: The present examination has been compared to prior imaging studies performed at [facility] on 06/20/2018, and at [facility] on 06/20/2019 and 06/21/2020. The breasts [...] compared to prior imaging studies performed at [facility] on 06/20/2018, and at [facility] on 06/20/2019 and 06/21/2020. The breasts [...] Recently Relevant to Health Maintenance Insurance MEDICARE [facility] MEDICARE SUPPLEMENT MEDICARE ANTHEM ACCESS CHOICE MEDICARE [facility] MEDICARE SUPPLEMENT Care Teams Auxiliary Engineer Relationship Specialty Start Date End Date Higinio Barnes MD PCP - General Family Practice 03/08/24
--- OUTSIDE RECORDS SUMMARY | 2024-12-17 18:26 | XMS_ITS | Encounter Summary ---
Author Organization [facility] Address [address] [place] [address] Phone Care Team Providers Care Elementary School Science Teacher Name Role Phone Iban Jeffery MD Primary Care Provider [phone] Higinio Barnes MD Primary Care Provider [phone] Encounter Details Date Type Department Care Team [...] on file Legal Sex Female 12:30 AM PERSONNEL AND PAYROLL TECHNICIAN Gender Identity Female 03/30/2023 12:11 PM [...] on filedocumented in this encounter Care Teams Elementary School Science Teacher Relationship Specialty Start Date End Date Iban Jeffery MD [address] [place] [address] PCP - General 06/12/19 03/07/24 Higinio Barnes MD [address] [place] [address] PCP - General Family Practice 03/08/24 documented as of this encounter
--- OUTSIDE RECORDS SUMMARY | 2024-12-17 18:26 | XMS_ITS | Referral Summary ---
Author Organization [facility] Healthcare Address [address] [place] [address] Care Team Providers Care Health Professional Name Role Phone Higinio Barnes MD Primary Care Provider [phone] Encounters Date Type Department Care Team Description 10/10/2024 11:00 AM CDT Office Visit [facility] Multiple Sclerosis [address] [facility] 7th [place] [phone] René Mcmullen MD Multiple sclerosis (HCC) (Primary Dx); Urinary urgency; Neurogenic bladder; Other fatigue 10/02/[address] [place] [address] Rock Neely MD from Last [...] on file Legal Sex Female 12:30 AM TODDLER TEACHER Gender Identity Female 03/30/2023 12:11 PM CDT [...] 56.7 kg (125 lb) 05/11/2024 4:40 PM TODDLER TEACHER Height 157.5 cm (5' 2) 05/11/2024 4:40 PM TODDLER TEACHER Body Mass Index 22.86 05/11/2024 4:40 PM TODDLER TEACHER Plan of Treatment Not on file Medical Devices Implanted Type Area Ambulance Attendant Device Identifier Shelf Expiration Date Model / [...] Read Routine (OP Routine) 06/23/2021 8:51 AM TODDLER TEACHER Encounter for screening mammogram for malignant neoplasm [...] Bone mineral density was performed on a [employer] Discovery Densitometer. Based on machine cross-calibration and [...] by the International Society of Clinical Densitometry. [id number] us Rock Neely MD IMG DXA PROCEDURES Final Resul t * Screening Mammogram Bilateral W Nuno (06/23/2021 8:51 AM TODDLER TEACHER) Anatomical Region Laterality Modality Breast Bilateral Mammography Narrative 06/24/2021 7:45 AM TODDLER TEACHER Mammogram Technique: Bilateral Digital Breast Tomosynthesis, Bilateral C-view 2D Screening mammogram. Views obtained: bilateral craniocaudal and bilateral mediolateral oblique. Computer Aided Detection was performed. Mammogram Findings: The present examination has been compared to prior imaging studies performed at [facility] on 06/20/2018, and at [facility] on 06/20/2019 and 06/21/2020. The breasts [...] to prior imaging studies performed at [facility] on 06/20/2018, and at [facility] on 06/20/2019 and 06/21/2020. The breasts [...] Recently Relevant to Health Maintenance [place] [address] [facility] MEDICARE SUPPLEMENT MEDICARE ANTH ACCESS CHOICE MEDICARE [facility] MEDICARE SUPPLEMENT Care Teams Health Professional Relationship Specialty Start Date End Date Higinio Barnes MD PCP - General Family Practice 03/08/24
--- OUTSIDE RECORDS SUMMARY | 2024-12-17 18:26 | XMS_ITS | Encounter Summary ---
Author Organization [facility] Address [address] [place] [address] Phone Care Team Providers Care Brand Attendant Name Role Phone Kailash Webb MD Primary Care Provider [phone] Iban Jeffery MD Primary Care Provider [phone] Higinio Barnes MD Primary Care Provider [phone] Encounter Details Date Type Department Care Team [...] on file Legal Sex Female 12:30 AM RELIABILITY TECHNICIANS Gender Identity Female 03/30/2023 12:11 PM CDT [...] on filedocumented in this encounter Care Teams Brand Attendant Relationship Specialty Start Date End Date Kailash Webb MD [address] [place] [address] PCP - General 09/21/17 06/11/19 Iban Jeffery MD [address] [facility] [address] [place] [address] PCP - General 06/12/19 03/07/24 Higinio Barnes MD [address] [facility] [address] [place] [address] PCP - General Family Practice 03/08/24 documented as of this encounter
--- OUTSIDE RECORDS SUMMARY | 2024-12-17 18:26 | XMS_ITS | Clinical Summary ---
Author Organization [facility] Address [address] [facility] Attn: Teresita Prejosefina [place]T [place] [address] Care Team Providers Care Cloth Finishing Range Operator Chief Name Role Phone Unavailable Primary Care Provider [...] daily. 30 Tablet 3 05/26/2022 11:59 AM RADIOTELEGRAPH OPERATOR 2 Active buPROPion HCL (WELLBUTRIN XL) 150 [...] daily. 90 Tablet 1 07/02/2022 12:11 PM RADIOTELEGRAPH OPERATOR 2 Active buPROPion HCL (WELLBUTRIN XL) 150 mg Extended Release 24 hour tablet Take 1 Tablet (150 mg) by mouth daily in the morning. 30 Tablet 3 04/28/2023 2:43 PM CDT 2 Active DULoxetine (CYMBALTA) 60 mg Capsule, Delayed Release(E.C.) Take 1 Capsule (60 mg) by mouth daily. 30 Capsule 3 08/16/2022 12:21 PM RADIOTELEGRAPH OPERATOR 2 Active lamoTRIgine (LaMICtal) 100 mg tablet Take 1 Tablet (100 mg) by mouth daily. 30 Tablet 3 08/25/2022 3:31 PM RADIOTELEGRAPH OPERATOR 2 Active amphetamine-dex troamphetamine (ADDERALL XR) 15 mg Extended Release 24 hour capsule Take 1 Capsule (15 mg) by mouth daily in the morning. 30 Capsule 3 Active methylphenidate HCl (Concerta) 18 mg Extended Release tablet Take 1 Tablet (18 mg) by mouth daily in the morning. Max Daily Amount: 18 mg 30 Tablet 08/30/2022 12:40 PM RADIOTELEGRAPH OPERATOR 3 Active amLODIPine (NORVASC) 2.5 mg tablet [...] DAILY 90 Tablet 1 07/22/2023 2:57 PM RADIOTELEGRAPH OPERATOR 3 Active cyclobenzaprine (FLEXERIL) 10 mg tablet [...] daily. 90 Tablet 1 07/12/2023 9:27 AM RADIOTELEGRAPH OPERATOR 3 Active atorvastatin (LIPITOR) 20 mg tablet TAKE ONE TABLET BY MOUTH ONCE DAILY 90 Tablet 1 07/12/2023 9:27 AM RADIOTELEGRAPH OPERATOR 3 Active DULoxetine (CYMBALTA) 60 mg Capsule, Delayed Release(E.C.) Take 1 Capsule (60 mg) by mouth daily. 90 Capsule 1 07/28/2023 2:15 PM RADIOTELEGRAPH OPERATOR 3 Active ibuprofen (MOTRIN) 600 mg tablet Take 1 Tablet (600 mg) by mouth 3 times daily as needed for pain. TAKE WITH FOOD 90 Tablet 1 08/17/2023 2:45 PM RADIOTELEGRAPH OPERATOR 3 Active buPROPion HCL (WELLBUTRIN XL) 150 mg Extended Release 24 hour tablet Take 1 Tablet (150 mg) by mouth daily in the morning. 30 Tablet 3 07/12/2023 9:27 AM RADIOTELEGRAPH OPERATOR 3 Active lamoTRIgine (LaMICtal) 100 mg tablet Take 1 Tablet (100 mg) by mouth daily. 30 Tablet 3 07/22/2023 2:57 PM RADIOTELEGRAPH OPERATOR 3 Active buPROPion HCL (WELLBUTRIN XL) 150 [...] daily. 90 Capsule 1 07/03/2024 3:43 PM RADIOTELEGRAPH OPERATOR 4 Active lamoTRIgine (LaMICtal) 100 mg tablet Take 1 Tablet (100 mg) by mouth daily. 90 Tablet 1 08/22/2024 12:25 PM RADIOTELEGRAPH OPERATOR 4 Active buPROPion HCL (WELLBUTRIN XL) 150 [...] daily. 180 Tablet 1 09/07/2024 8:08 AM RADIOTELEGRAPH OPERATOR 4 12/06/19 25 Discontinu ed(Reorder ) amphetamine-dex [...]
--- OUTSIDE RECORDS SUMMARY | 2024-12-17 18:26 | XMS_ITS | Encounter Summary ---
Author Organization [facility] Address [address] [place] [address] Phone Care Team Providers Care Channel Manager Name Role Phone Kailash Webb MD Primary Care Provider [phone] Iban Jeffery MD Primary Care Provider [phone] Higinio Barnes MD Primary Care Provider [phone] Encounter Details Date Type Department Care Team [...] on file Legal Sex Female 12:30 AM FRANCHISE FIELD CONSULTANT Gender Identity Female 03/30/2023 12:11 PM CDT [...] on filedocumented in this encounter Care Teams Channel Manager Relationship Specialty Start Date End Date Kailash Webb MD [address] [place] [address] PCP - General 09/21/17 06/11/19 Iban Jeffery MD [address] [facility] [address] [place] [address] PCP - General 06/12/19 03/07/24 Higinio Barnes MD [address] [facility] [address] [place] [address] PCP - General Family Practice 03/08/24 documented as of this encounter
--- OUTSIDE RECORDS SUMMARY | 2024-12-17 18:26 | XMS_ITS | Encounter Summary ---
Author Organization [facility] Healthcare Address [address] [place] [address] Care Team Providers Care Machine Overhauler Name Role Phone Iban Jeffery MD Primary Care Provider [phone] Higinio Barnes MD Primary Care Provider [phone] Encounter Details Date Type Department Care Team (Late st Contact Info) Description 03/24/2022 Telephone [facility] Radiology [address] [place] [address] René Mcmullen MD [address] [facility] [address] [place] [address] Social History Tobacco Use Types Packs/Day Years Used Date Smoking Tobacco: Former Smokeless Tobacco: Never Alcohol Use Standard Drinks/Week Comments No 0 (1 standard drink = 0.6 oz pur e alcohol) Comments No Sex and Gender Information Value Date Recorded Sex Assigned at Not on file Legal Sex Female 12:30 AM ENVIRONMENTAL ASSOCIATE Gender Identity Female 03/30/2023 12:11 PM CDT Sexual Orientation Straight 03/30/2023 12 :11 PM CDT documented as of this encounter Plan of Treatment Not on file documented as of this encounter Visit Diagnoses Not on filedocumented in this encounter Care Teams Machine Overhauler Relationship Specialty Start Date End Date Iban Jeffery MD [address] [place] [address] PCP - General 06/12/19 03/07/24 Higinio Barnes MD [address] [place] [address] PCP - General Family Practice 03/08/24 documented as of this encounter
--- NOTE | 2024-12-17 19:02 | ED_ITS ---
HPI - Abdominal Pain General Chief Complaint: Abdominal Pain Stated Complaint: constipation Time Seen by Provider: 12/17/24 17:50 History of Present Illness HPI narrative: 69-year-old female presenting to the emergency department for constipation x2 weeks. She states she had a colonoscopy scheduled with her GI doctor last 2 weeks ago but she had stool remaining in her colon and this was aborted and they were only able to do an anoscopy. Patient states that she has been having some abdominal bloating and constipation since then, still passing gas and having minimal bowel movement. Tried some [id number] remedies without any relief. No history of any significant abdominal surgeries, no trauma or injury. No vomiting, nauseousness or inability to tolerate oral intake. No fever chills. Has not spoken to her primary doctor about this. Related Data Home Medications ?Medication ?Instructions ?Recorded ?Confirmed ?Last Taken ?Type lamotrigine 100 mg tablet 100 mg PO DAILY 06/21/19 12/15/24 11/29/24 History multivitamin (Daily Multi-Vitamin 1 tablet PO DAILY 11/24/19 12/15/24 11/29/24 History tablet) dextroamphetamine-amphetamine ER 15 mg PO DAILY 01/04/23 12/15/24 11/29/24 History 15 mg 24hr capsule,extend release teriparatide 20 mcg/dose (560 20 mcg subcut DAILY 12/17/23 12/15/24 11/29/24 History mcg/2.24 mL) subcutaneous pen injector (Forteo) bupropion HCl 150 mg 24 hr tablet, 150 mg PO QAM 09/06/24 12/15/24 11/29/24 History extended release Allergies Allergy/AdvReac Type Severity Reaction Status Date / Time Penicillins Allergy Unknown Hives Verified 11/30/24 07:18 Review of Systems 2 Review of Systems: As reviewed above in HPI [facility] Past Medical History Medical History Cubital tunnel syndrome on left Adult idiopathic generalized osteoporosis Multiple sclerosis Attention-deficit hyperactivity disorder, unspecified type Depression Essential (primary) hypertension Mixed hyperlipidemia Surgical History Surgical History History of throat surgery removal of polyp H/O breast biopsy History of bunionectomy Family History Family History Father Hypertension Sibling Family history of lupus erythematosus Family history of malignant neoplasm of breast in first degree relative Mother Family history of mental disorder Patient's mother is in good health Other Family history of elevated blood lipids Family history of multiple sclerosis Social History Social History Smoking packs per day: 1 Smoking cigarettes per day: 20.0 Years smoked: 12 Smoking pack-years: 12.00 Smoking status: Former smoker Tobacco type: cigarettes Second hand tobacco smoke exposure: No Smoking end date: 07/05/87 Alcohol intake: never Substance use: former Substance use type: marijuana Other substance usage details: had to stop in order to get Adderall Last use: end january Lack of Transportation: No Lack of Food: Never True Current Housing: I Have Housing Concerned About Future Housing: No Difficulty Paying Gas/Electric Bills: No Difficulty Paying for Meds: No Currently Unemployed: No Education: High School Diploma/GED Difficulty w/ Childcare or Family Care: No Living arrangements: with family Additional living arrangements comments: Occupation/Education: retired Gender identity (if verbalized by the patient): Female Sexual Orientation (if Verbalized by the Patient): Straight or Heterosexual Spiritual care concerns: No Exam 2 Narrative: GENERAL: [Well-appearing, well-nourished, and in no acute distress.] HEAD: [Normocephalic, atraumatic.] EYES: [PERRLA and EOMI.] ENT: Nares clear, no rhinorrhea or epistaxis. Mucous membranes moist. NECK: Supple. CHEST: [Clear to auscultation. No respiratory distress.] HEART: [Regular rate and rhythm]. No murmur heard. [Normal peripheral pulses.] ABDOMEN: [Soft, nondistended], [nontender], [No rigidity or guarding] EXTREMITIES: Normal range of motion. [No edema.] SKIN: Warm, dry, no rash. NEURO: [No focal deficits]. Alert and oriented [x3.] PSYCH: [Normal mood and affect.] Course Vital Signs Vital signs: Vital Signs Temperature 36.6 C 12/17/24 17:14 Pulse Rate 92 12/17/24 17:14 Respiratory Rate 16 12/17/24 17:14 Blood Pressure 120/62 12/17/24 17:14 Pulse Oximetry 100 12/17/24 17:14 Oxygen Delivery Room Air 12/17/24 17:14 Temperature 36.7 C 12/17/24 17:55 Pulse Rate 88 12/17/24 17:55 Respiratory Rate 18 12/17/24 17:55 Blood Pressure 117/69 12/17/24 18:01 Pulse Oximetry 97 12/17/24 18:01 Oxygen Delivery Room Air 12/17/24 17:14 MDM - Abdominal Pain MDM Narrative Medical decision making narrative: 69-year-old female presenting to the emergency department for constipation x2 weeks. She is overall very well-appearing not any acute distress, still passing gas and having minimal bowel movements but still feels constipated and bloated. She has a soft nondistended nontender abdomen. Vital signs are all normal without any fever, tachypnea, tachycardia. No history of abdominal surgeries. Suspect mild constipation with stool burden but do not suspect bowel obstruction or other intra-abdominal process at this time given her otherwise well appearance and normal exam findings. Laboratory studies were obtained as well as a KUB. Workup shows no leukocytosis or significant anemia. Normal platelet count. Chemistry panel was within normal limits, creatinine of 46 slightly lower than her previous chronic kidney disease. Normal glucose, normal LFTs. Normal lipase. Urinalysis negative for infection. Abdominal x-ray was independently reviewed and interpreted by radiology with nonobstructive bowel gas pattern with some fecal stasis within the colon consistent with her exam findings and historical features. Do not suspect bowel obstruction at this juncture and we will proceed with magnesium citrate, senna and enema after discussing with the patient. Discussed with her that she will have to follow up with her GI doctor outpatient and given return precautions upon completion of treatment plan here. Medical Records Attestation: I reviewed the patient's medical records. Lab Data Attestation: I reviewed the patient's lab results. 12/17/24 18:05 12/17/24 18:05 Labs: Lab Results 12/17/24 12/17/24 Range/Units 18:05 18:11 WBC 7.3 (4.5-10.0) K/mm3 RBC 3.72 L (4.2-5.4) M/mm3 Hgb 10.9 L (12.0-15.0) g/dL Hct 33.3 L (37.0-47.0) % MCV 89.5 (80-100) fl MCH 29.3 (26-34) pg MCHC 32.7 (32-36) g/dl RDW 12.2 (11.5-14.5) % Plt Count 292 (150-375) k/mm3 MPV 8.5 (7.4-10.4) fl Immature Gran % (Auto) 0.1 (0-0.5) % Neut % (Auto) 58.4 (45.5-73.1) % Lymph % (Auto) 26.7 (18.3-44.2) % Liberty % (Auto) 10.9 H (2.6-8.5) % Eos % (Auto) 2.1 (0-4.4) % Baso % (Auto) 1.8 H (0.2-1.2) % Lymph # (Auto) 1.95 (0.9-3.2) K/mm3 Liberty # (Auto) 0.8 H (0.1-0.6) K/mm3 Eos # (Auto) 0.2 (0-0.3) K/mm3 Baso # (Auto) 0.1 (0.0-0.1) K/mm3 Abs Immat Gran (auto) 0.01 (0.00-0.031) K/mm3 Absolute Neuts (auto) 4.3 (1.3-6.7) K/mm3 Absolute Nucleated RBC 0.000 (0.0-0.012) K/mm3 Nucleated RBC % 0.0 (0.0-0.2) % Sodium 139 (137-145) mmol/L Potassium 3.7 (3.4-5.0) mmol/L Chloride 103 (98-107) mmol/L Carbon Dioxide 28 (22-30) mmol/L Anion Gap 8 (4-12) mmol/L BUN 25 H (7-17) mg/dL Creatinine 1.18 H (0.7-1.0) mg/dL Estim Creat Clear Calc 32 ml/min Estimated GFR 46 L (59 - ) Glucose 112 H (65-110) mg/dL Calcium 9.9 (8.4-10.2) mg/dL Total Bilirubin 0.2 (0.2-1.3) mg/dL AST 31 (14-36) U/L ALT 27 (6-35) U/L Alkaline Phosphatase 70 (38-126) U/L Total Protein 7.2 (6.3-8.2) g/dL Albumin 4.3 (3.5-5.1) g/dL Lipase 147 (23-300) U/L Urine Color Yellow (Yellow) Urine Appearance Clear (Clear) Urine pH 7.0 (5.0-9.0) Ur Specific Ponce 1.019 (1.001-1.035) Urine Protein Negative (Negative) mg/dL Urine Glucose (UA) Negative (Negative) mg/dL Urine Ketones Negative (Negative) mg/dL Ur Blood (Man) Negative (Negative) Urine Nitrate Negative (Negative) Urine Bilirubin Negative (Negative) Urine Urobilinogen 1.0 (<2.0) mg/dL Leukocyte Esterase Rfl Trace H (Negative) DIEGO/UL Urine RBC 0-2 (0-2) /hpf Urine WBC 0-5 (0-3) /hpf Ur Squamous Epith Cells None seen (Few) /hpf Urine Bacteria None seen /hpf Urine Casts 0-2 POC Urine HCG, Qual Negative (Negative) Imaging Data Attestation: I personally reviewed and interpreted this imaging study as follows: My impression: Impressions Abdomen X-Ray 12/17/24 18:34 IMPRESSION: Nonspecific, nonobstructive bowel gas pattern, with fecal stasis within the colon. Radiologist's impression: ITS Impressions Abdomen X-Ray 12/17/24 18:34 IMPRESSION: Nonspecific, nonobstructive bowel gas pattern, with fecal stasis within the colon. Discharge Plan Discharge Clinical Impression: Constipation Patient Disposition: Home Condition: Stable Instructions: Antibiotic Form, Constipation (DC) Additional Instructions: Your laboratory studies are reassuring and your x-ray does not show any signs of a bowel obstruction or any dilated loops of bowel which is reassuring. We will treat you with a combination of MiraLax, magnesium citrate and we offered you an enema here in the emergency department. Call your GI doctor for close follow-up visit, return with any emergencies such as not able to tolerate oral intake, intractable fevers, intractable pain, nausea and vomiting. Patient Language: Setswana Prescriptions: New magnesium citrate Solution 300 ml PO DAILY PRN (Reason: constipation) Qty: 296 0RF polyethylene glycol 3350 [Miralax] 17 gram/dose powder 17 g PO BID Qty: 238 0RF Rx Instructions: Makes the 17 g of MiraLax in 8 oz of water and do not use any more water as further dilution will make this medication not work as well. Fleet Enema 19-7 gram/118 mL enema 197 ml RECTAL ONCE Qty: 266 0RF No Action multivitamin [Daily Multi-Vitamin] Tablet 1 tablet PO DAILY bupropion HCl 150 mg tablet extended release 24 hr 150 mg PO QAM dextroamphetamine-amphetamine 15 mg capsule,extended release 24hr 15 mg PO DAILY ibuprofen 600 mg tablet 600 mg PO TID PRN (Reason: pain) Qty: 90 1RF Rx Instructions: (1) tablet three times a day as needed with food. teriparatide [Forteo] 20 mcg/dose (600mcg/2.4mL) pen injector 20 mcg subcut DAILY lamotrigine 100 mg tablet 100 mg PO DAILY duloxetine 60 mg capsule,delayed release(DR/EC) 60 mg PO DAILY Qty: 90 1RF amlodipine 2.5 mg tablet 2.5 mg PO DAILY Qty: 90 1RF losartan-hydrochlorothiazide 100-12.5 mg tablet See Rx Instructions .ROUTE .COMPLEX Qty: 90 1RF Dose Instruction: TAKE ONE TABLET BY MOUTH ONCE DAILY Rx Instructions: TAKE ONE TABLET BY MOUTH ONCE DAILY atorvastatin 20 mg tablet See Rx Instructions .ROUTE .COMPLEX Qty: 90 1RF Dose Instruction: TAKE ONE TABLET BY MOUTH ONCE DAILY Rx Instructions: TAKE ONE TABLET BY MOUTH ONCE DAILY famotidine 20 mg tablet See Rx Instructions .ROUTE .COMPLEX Qty: 180 1RF Dose Instruction: Take 1 Tablet (20 mg) by mouth 2 times daily. Rx Instructions: Take 1 Tablet (20 mg) by mouth 2 times daily. Follow-up/Referrals: Higinio Barnes MD [Primary Care Provider] - Time of Disposition: 19:13
[2024-12-17] MEDS: SENNOSIDES 8.6 MG TABLET PO (19:13)
[2024-12-17] MEDS: MAGNESIUM CITRATE 300 ML BTL PO (19:13)
== END 2024-12-17 19:49 | disposition home or self-care (01) ==
PROVIDERS: Emergency Provider Student in an Organized Health Care Education/Training Program; PCP Family Medicine
DX: K59.00 Constipation, unspecified (principal); G35 Multiple sclerosis; E78.2 Mixed hyperlipidemia; I10 Essential (primary) hypertension; F90.9 Attention-deficit hyperactivity disorder, unspecified type; Z79.899 Other long term (current) drug therapy
CPT/HCPCS: 36415; 74018; 80053; 81001; 81025; 83690; 85025; 99283; A9270

== ENCOUNTER 2025-03-28 09:21 | Outpatient (CLI) | payer MEDICARE, SELFPAY ==
--- OUTSIDE RECORDS SUMMARY | 2025-03-28 10:07 | XMS_ITS | Clinical Summary ---
Author Organization [facility] Address [address] Attn: Teresita Prelusera [place] [address] Care Team Providers Care Co Pilot Name Role Phone Unavailable Primary Care Provider Unavailabl e Allergies Active Allergy Reactions Criticality Noted Date Comments Penicillins Unknown 11/16/2021 Medications buPROPion HCL (WELLBUTRIN XL) 150 mg Extended Release 24 hour tablet Take 1 Tablet (150 mg) by mouth daily in the morning. 30 Tablet 3 2 12:20 PM CDT 12/11/19 22 Active DULoxetine (Cymbalta) 60 mg Capsule, Delayed Release(E.C.) Take 1 Capsule (60 mg) by mouth daily. 30 Capsule 3 2 12:48 PM CDT 12/11/19 22 Active lamoTRIgine (LaMICtal) 100 mg tablet Take 1 Tablet (100 mg) by mouth daily. 30 Tablet 3 2 11:59 AM ANIMAL DAYCARE PROVIDER 12/11/19 22 Active buPROPion HCL (WELLBUTRIN XL) 150 mg Extended Release 24 hour tablet Take 1 Tablet (150 mg) by mouth daily in the morning. 30 Tablet 3 3 2:50 PM CDT 03/18/20 22 Active DULoxetine (Cymbalta) 60 mg Capsule, Delayed Release(E.C.) Take 1 Capsule (60 mg) by mouth daily. 30 Capsule 3 2 5:20 PM CDT 03/18/20 22 Active losartan-hydr oCHLOROthiazi de (HYZAAR) 100-12.5 mg tablet Take 1 Tablet by mouth daily. 90 Tablet 1 2 12:11 PM ANIMAL DAYCARE PROVIDER 10/03/19 22 Active buPROPion HCL (WELLBUTRIN XL) 150 mg Extended Release 24 hour tablet Take 1 Tablet (150 mg) by mouth daily in the morning. 30 Tablet 3 3 2:43 PM CDT 06/17/20 22 Active DULoxetine (CYMBALTA) 60 mg Capsule, Delayed Release(E.C.) Take 1 Capsule (60 mg) by mouth daily. 30 Capsule 3 3 12:21 PM ANIMAL DAYCARE PROVIDER 06/17/20 22 Active lamoTRIgine (LaMICtal) 100 mg tablet Take 1 Tablet (100 mg) by mouth daily. 30 Tablet 3 3 3:31 PM ANIMAL DAYCARE PROVIDER 06/17/20 22 Active amphetamine-d extroamphetam ine (ADDERALL XR) 15 mg Extended Release 24 hour capsule Take 1 Capsule (15 mg) by mouth daily in the morning. 30 Capsule 08/17/19 23 Active methylphenida te HCl (Concerta) 18 mg Extended Release tablet Take 1 Tablet (18 mg) by mouth daily in the morning. Max Daily Amount: 18 mg 30 Tablet 3 12:40 PM ANIMAL DAYCARE PROVIDER 08/21/19 23 Active amLODIPine (NORVASC) 2.5 mg tablet Take 1 Tablet (2.5 mg) by mouth daily. 90 Tablet 1 10/09/19 23 Active atorvastatin (LIPITOR) 20 mg tablet TAKE ONE TABLET BY MOUTH ONCE DAILY 90 Tablet 1 10/09/19 23 Active amLODIPine (NORVASC) 2.5 mg tablet Take 1 Tablet (2.5 mg) by mouth daily. 90 Tablet 1 10/10/19 23 Active atorvastatin (LIPITOR) 20 mg tablet Take 1 Tablet (20 mg) by mouth daily. 90 Tablet 1 10/10/19 23 Active ibuprofen (MOTRIN) 600 mg tablet Take 1 Tablet (600 mg) by mouth 3 times daily as needed for pain. TAKE WITH FOOD. 90 Tablet 1 3 3:55 PM CDT 10/23/19 23 Active buPROPion HCL (WELLBUTRIN XL) 150 mg Extended Release 24 hour tablet Take 1 Tablet (150 mg) by mouth daily in the morning. 30 Tablet 1 3 1:03 PM CDT 11/06/19 23 Active amphetamine-d extroamphetam ine (ADDERALL XR) 15 mg Extended Release 24 hour capsule Take 1 Capsule (15 mg) by mouth daily in the morning. 30 Capsule 11/06/19 23 Active amphetamine-d extroamphetam ine (ADDERALL XR) 15 mg Extended Release 24 hour capsule Take 1 capsule every day by oral route in the morning for 30 days. 30 Capsule 3 11:56 AM CDT 11/07/19 23 Active buPROPion HCL (WELLBUTRIN XL) 150 mg Extended Release 24 hour tablet Take 1 Tablet (150 mg) by mouth daily in the morning. 30 Tablet 3 3 2:15 PM CDT 12/09/19 23 Active estradioL (ESTRACE) 0.01% (0.1 mg/g) vaginal cream Insert 1 gram vaginally twice weekly. 42.5 Gram 5 01/05/20 23 Active losartan-hydr oCHLOROthiazi de (HYZAAR) 100-12.5 mg tablet TAKE ONE TABLET BY MOUTH ONCE DAILY 90 Tablet 1 01/23/20 23 Active losartan-hydr oCHLOROthiazi de (HYZAAR) 100-12.5 mg tablet TAKE ONE TABLET BY MOUTH ONCE DAILY 90 Tablet 1 4 2:57 PM ANIMAL DAYCARE PROVIDER 01/23/20 23 Active cyclobenzapri ne (FLEXERIL) 10 mg tablet Take 1 Tablet (10 mg) by mouth 2 times daily as needed for muscle spasm; do not drive while taking. 20 Tablet 3 2:27 PM CDT 02/02/20 23 Active dextroampheta mine-amphetam ine (AdderalL) 10 mg tablet TAKE 1 TABLET BY MOUTH ONCE DAILY BEFORE BREAKFAST 30 Tablet 3 4:29 PM CDT 02/17/20 23 Active dextroampheta mine-amphetam ine (AdderalL) 5 mg tablet TAKE 1 TABLET BY MOUTH IN THE EVENING 30 Tablet 3 4:29 PM CDT 02/17/20 23 Active amLODIPine (NORVASC) 2.5 mg tablet Take 1 Tablet (2.5 mg) by mouth daily. 90 Tablet 1 4 9:27 AM ANIMAL DAYCARE PROVIDER 04/05/20 23 Active atorvastatin (LIPITOR) 20 mg tablet TAKE ONE TABLET BY MOUTH ONCE DAILY 90 Tablet 1 4 9:27 AM ANIMAL DAYCARE PROVIDER 04/05/20 23 Active DULoxetine (CYMBALTA) 60 mg Capsule, Delayed Release(E.C.) Take 1 Capsule (60 mg) by mouth daily. 90 Capsule 1 4 2:15 PM ANIMAL DAYCARE PROVIDER 04/29/20 23 Active ibuprofen (MOTRIN) 600 mg tablet Take 1 Tablet (600 mg) by mouth 3 times daily as needed for pain. TAKE WITH FOOD 90 Tablet 1 4 2:45 PM ANIMAL DAYCARE PROVIDER 05/04/20 23 Active buPROPion HCL (WELLBUTRIN XL) 150 mg Extended Release 24 hour tablet Take 1 Tablet (150 mg) by mouth daily in the morning. 30 Tablet 3 4 9:27 AM ANIMAL DAYCARE PROVIDER 05/06/20 23 Active lamoTRIgine (LaMICtal) 100 mg tablet Take 1 Tablet (100 mg) by mouth daily. 30 Tablet 3 4 2:57 PM ANIMAL DAYCARE PROVIDER 06/09/20 23 Active buPROPion HCL (WELLBUTRIN XL) 150 mg Extended Release 24 hour tablet Take 1 Tablet (150 mg) by mouth daily in the morning. 30 Tablet 3 4 2:20 PM CDT 08/10/19 24 Active ibuprofen (MOTRIN) 600 mg tablet Take 1 Tablet (600 mg) by mouth 3 times daily as needed for pain. Take with food. 90 Tablet 1 4 1:29 PM CDT 11/23/19 24 Active amphetamine-d extroamphetam ine (ADDERALL XR) 15 mg Extended Release 24 hour capsule Take 1 Capsule (15 mg) by mouth daily in the morning. Max Daily Amount: 15 mg 30 Capsule 4 5:22 PM CDT 01/07/20 24 Active amphetamine-d extroamphetam ine (ADDERALL XR) 15 mg Extended Release 24 hour capsule Take 1 Capsule (15 mg) by mouth daily. Max Daily Amount: 15 mg 30 Capsule 01/07/20 24 Active amphetamine-d extroamphetam ine (ADDERALL XR) 15 mg Extended Release 24 hour capsule Take 1 Capsule (15 mg) by mouth daily in the morning. Max Daily Amount: 15 mg 30 Capsule 01/07/20 24 Active amphetamine-d extroamphetam ine (ADDERALL XR) 15 mg Extended Release 24 hour capsule Take 1 Capsule (15 mg) by mouth daily in the morning. Max Daily Amount: 15 mg 30 Capsule 01/10/20 24 Active clobetasoL (TEMOVATE) 0.05 % Ointment Apply topically 2 (two) times a day 30 Gram 1 4 12:55 PM CDT 02/22/20 24 Active amphetamine-d extroamphetam ine (ADDERALL XR) 15 mg Extended Release 24 hour capsule Take 1 Capsule (15 mg) by mouth daily in the morning. Max Daily Amount: 15 mg 30 Capsule 4 3:36 PM CDT 03/09/20 24 Active buPROPion HCL (WELLBUTRIN XL) 150 mg Extended Release 24 hour tablet Take 1 Tablet (150 mg) by mouth daily in the morning. 90 Tablet 1 4 12:06 PM CDT 03/30/20 24 Active buPROPion HCL (WELLBUTRIN XL) 150 mg Extended Release 24 hour tablet Take 1 Tablet (150 mg) by mouth daily in the morning. 90 Tablet 1 5 3:05 PM CDT 05/18/20 24 Active DULoxetine (CYMBALTA) 60 mg Capsule, Delayed Release(E.C.) Take 1 Capsule (60 mg) by mouth daily. 90 Capsule 1 5 11:52 AM CDT 05/18/20 24 Active lamoTRIgine (LaMICtal) 100 mg tablet Take 1 Tablet (100 mg) by mouth daily. 90 Tablet 1 5 12:25 PM [facility] 05/18/20 24 Active buPROPion HCL (WELLBUTRIN XL) 150 mg Extended Release 24 hour tablet Take 1 Tablet (150 mg) by mouth daily in the morning. 90 Tablet 1 08/17/19 25 Active lamoTRIgine (LaMICtal) 100 mg tablet Take 1 Tablet (100 mg) by mouth daily. 90 Tablet 1 5 2:24 PM CDT 08/17/19 25 Active DULoxetine (CYMBALTA) 60 mg Capsule, Delayed Release(E.C.) Take 1 Capsule (60 mg) by mouth daily. 90 Capsule 1 5 7:15 PM CDT 08/17/19 25 Active lamoTRIgine (LaMICtal) 100 mg tablet Take 1 Tablet (100 mg) by mouth daily. 90 Tablet 1 5 6:06 PM CDT 05/14/20 25 Active sodium phosphates 19-7 gram/118 mL Enema 197 mL rectally once 266 mL 12/18/19 25 Active magnesium CITRATE solution 300 mL orally daily As Needed for constipation 296 mL 12/18/19 25 Active polyethylene glycol 3350 (MIRALAX) 17 gram/dose Powder 17 g orally twice a day; Makes the 17 g of MiraLax in 8 oz of water and do not use any more water as further dilution will make this medication not work as well. 238 Gram 12/18/19 25 Active Insulin Conklin, Disposable, (Pen Needle) 31 gauge x 3/16 Needle Use with injectable as directed. 100 Each 1 5 12:51 PM CDT 01/18/20 25 Active amphetamine-d extroamphetam ine (ADDERALL XR) 15 mg Extended Release 24 hour capsule Take 1 Capsule (15 mg) by mouth daily. Max Daily Amount: 15 mg 30 Capsule 01/18/20 25 Active amphetamine-d extroamphetam ine (ADDERALL XR) 15 mg Extended Release 24 hour capsule Take 1 Capsule (15 mg) by mouth daily in the morning. Max Daily Amount: 15 mg 30 Capsule 5 5:09 PM CDT 02/13/20 25 Active estradioL (ESTRACE) 0.01% (0.1 mg/g) vaginal cream INSERT 1 GRAM VAGINALLY TWICE A WEEK. 42.5 Gram 5 02/22/20 25 Active buPROPion HCL (WELLBUTRIN XL) 150 mg Extended Release 24 hour tablet Take 1 Tablet (150 mg) by mouth daily. 90 Tablet 1 5 6:06 PM CDT 02/23/20 25 Active DULoxetine (CYMBALTA) 60 mg Capsule, Delayed Release(E.C.) Take 1 Capsule (60 mg) by mouth daily. 90 Capsule 1 5 2:07 PM CDT 02/23/20 25 Active lamoTRIgine (LaMICtal) 100 mg tablet Take 1 Tablet (100 mg) by mouth daily. 90 Tablet 1 02/23/20 25 Active amphetamine-d extroamphetam ine (ADDERALL XR) 15 mg Extended Release 24 hour capsule Take 1 capsule (15mg) in the morning Orally Once a day 30 Capsule 5 11:47 AM CDT 03/13/20 25 Active amLODIPine (NORVASC) 2.5 mg tablet Take 1 Tablet (2.5 mg) by mouth daily. 90 Tablet 1 5 2:07 PM CDT 03/19/20 25 Active atorvastatin (LIPITOR) 20 mg tablet Take 1 Tablet (20 mg) by mouth daily. 90 Tablet 1 5 2:07 PM CDT 03/19/20 25 Active losartan-hydr oCHLOROthiazi de (HYZAAR) 100-12.5 mg tablet Take 1 Tablet by mouth daily. 90 Tablet 1 5 2:07 PM CDT 03/19/20 25 Active famotidine (PEPCID) 20 mg tablet Take 1 Tablet (20 mg) by mouth 2 times daily. 180 Tablet 1 5 2:07 PM CDT 03/20/20 25 Active amLODIPine (NORVASC) 2.5 mg tablet Take 1 Tablet (2.5 mg) by mouth daily. 90 Tablet 1 5 11:52 AM CDT 09/28/19 25 025 Discontinued(R eorder) atorvastatin (LIPITOR) 20 mg tablet TAKE ONE TABLET BY MOUTH ONCE DAILY 90 Tablet 1 5 11:52 AM CDT 09/28/19 25 025 Discontinued(R eorder) losartan-hydr oCHLOROthiazi de (HYZAAR) 100-12.5 mg tablet TAKE ONE TABLET BY MOUTH ONCE DAILY 90 Tablet 1 5 11:52 AM CDT 09/28/19 25 025 Discontinued(R eorder) famotidine (PEPCID) 20 mg tablet Take 1 Tablet (20 mg) by mouth 2 times daily. 180 Tablet 1 5 5:21 PM CDT 12/06/19 25 025 Discontinued Encounters Date Type Department Care Team Description 03/13/2025 External Device Data ST[facility] ABSTRACTION Provider, Abstract 02/07/2025 External Device Data [facility] ABSTRACTION Provider, Abstract 01/17/2025 External Device Data [facility] ABSTRACTION Provider, Abstract from Last 3 Months Social History Tobacco Use Types Packs/Day Years [...] 2006 OSTEOPOROSIS SCREENING 2021 INFLUENZA VACCINE (#1) 2025 RSV VACCINE (60+ or ) (1 - 1-dose 75+ series) 2031 Insurance RX [employer] (INTERNAL) [facility] [employer] RX [employer] RX Member Subscriber Plan / Payer (Ef fective 2024-Present) Name:Meena Klein Relation to Subscriber:Self Name:Meena Klein Subscriber ID:Not on file Payer ID:Not on file Group ID:[id number] Type:RX Commercial Address: [place]
--- OUTSIDE RECORDS SUMMARY | 2025-03-28 10:07 | XMS_ITS | Clinical Summary ---
Author Organization [facility] Healthcare Address [address] [place] [address] Care Team Providers Care Ssis Etl Developer Name Role Phone Hiignio Barnes MD Primary Care Provider [phone] Allergies Active Allergy Reactions Criticality Noted Date [...] Active pen needle, diabetic 31 gauge x /16 needle Use one needle daily with Forteo pen 100 each 3 3 Active clobetasoL (TEMOVATE) 0.05 % ointment Apply topically 2 (two) times a day 30 g 1 4 Active Forteo 20 mcg/dose (560mcg/2.24mL) injectionIndicati ons:Other osteoporosis without current pathological fracture Inject 0.08 mL (20 mcg total) under the skin daily 7.2 mL 5 05/15/20 25 Active Active Problems Problem Noted Date [...] 09/02/2010 Multiple sclerosis 09/02/2010 Neurogenic bladder 09/02/2010 Surgical History Surgery Date Site/Laterality Comments ORAL [...] headache - (Added by TW Conv) Other senior care (current) drug therapy Encounter for long-term (current) [...] - (Added by TW Conv) Multiple sclerosis Multiple scle rosis - (Added by TW Conv) Urgency of urination Urinary urg ency - (Added by TW Conv) ADHD (attention deficit hype ractivity disorder) Anxiety Depression Infectious viral hepatitis 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 Neuromuscular disorder Osteoporosis Family History Medical History Relation Name [...] on file Legal Sex Female 12:30 AM CELLAR PUMPER Gender Identity Female 03/30/2023 12:11 PM CDT Sexual Orientation Straight 03/30/2023 12 :11 PM CDT Obstetrics History Para Term AB IAB SAB Ectopic Multiple Livin g Live Births 1 1 Date Outcome GA Total Labor [...] 56.7 kg (125 lb) 05/11/2024 4:40 PM CELLAR PUMPER Height 157.5 cm (5' 2) 05/11/2024 4:40 PM CELLAR PUMPER Body Mass Index 22.86 05/11/2024 4:40 PM CELLAR PUMPER Plan of Treatment Health Maintenance Due Date Last Done Comments Depression Screening 1956 Fall Risk Assessment 1955 Hepatitis C Screening 1955 DTaP/Tdap/Td Vaccine (1 - Tdap) 1967 Hepatitis B Screening 1974 Pneumococcal vaccine 65+ (1 of 1 - PCV) 2006 Zoster Vaccine (1 of 2) 2006 Well Visit 65+ 12/31/2021 12/31/2020, 010 01/2020, 05/23/2018 Breast Cancer Screening-Mammogram 06/23/2022 06/23/2021, 06/21/2020, 06/20/2019, Additional history exists Colon Cancer Screening-Colonoscopy 07/05/2024 07/05/2014 Influenza Vaccine (#1) 2025 Osteoporosis Screening-Bone Density Scan 02/23/2026 02/24/2024, 02/11/2023, 05/01/2021, Additional history exists Colon Cancer Screening-CT Colonography Discontinued 07/05/2014 Colon Cancer Screening-DNA Stool Discontinued 07/05/19 15 Colon Cancer Screening-FIT Discontinued 07/05/2014 Colon Cancer Screening-Sigmoidoscopy Discontinued 07/05/2014 Medical Devices Implanted Type Area Director Of Assisted Living Device Identifier Shelf Expiration Date Model / [...] Read Routine (OP Routine) 06/23/2021 8:51 AM CELLAR PUMPER Encounter for screening mammogram for malignant neoplasm [...] Bone mineral density was performed on a HoloClarimedix Discovery Densitometer. Based on machine cross-calibration and [...] by the International Society of Clinical Densitometry. [id number] us Rock Neely MD IMG DXA PROCEDURES Final Resul t * Screening Mammogram Bilateral W Nuno (06/23/2021 8:51 AM CELLAR PUMPER) Anatomical Region Laterality Modality Breast Bilateral Mammography Narrative 06/24/2021 7:45 AM CELLAR PUMPER Mammogram Technique: Bilateral Digital Breast Tomosynthesis, Bilateral C-view 2D Screening mammogram. Views obtained: bilateral craniocaudal and bilateral mediolateral oblique. Computer Aided Detection was performed. Mammogram Findings: The present examination has been compared to prior imaging studies performed at [facility] on 06/20/2018, and at [facility] on 06/20/2019 and 06/21/2020. The breasts are [...] compared to prior imaging studies performed at [facility] on 06/20/2018, and at [facility] on 06/20/2019 and 06/21/2020. The breasts are [...] Recently Relevant to Health Maintenance Insurance MEDICARE [facility] Address: [facility] [id number] [place] [id number] [facility] MEDICARE SUPPLEMENT MEDICARE [facility] [facility] MEDICARE [facility] MEDICARE SUPPLEMENT Care Teams Ssis Etl Developer Relationship Specialty Start Date End Date Higinio Barnes MD PCP - General Family Practice 03/08/24
--- OUTSIDE RECORDS SUMMARY | 2025-03-28 10:07 | XMS_ITS | Encounter Summary ---
Author Organization [facility] Healthcare Address [address] [place] [address] Care Team Providers Care Branch Lead Name Role Phone Iban Jeffery MD Primary Care Provider [phone] Higinio Barnes MD Primary Care Provider [phone] Encounter Details Date Type Department Care Team (Late st Contact Info) Description 03/24/2022 Telephone [facility] Radiology [address] [place] [address] René Mcmullen MD [address] [address] [place] [address] Social History Tobacco Use Types Packs/Day Years Used Date Smoking Tobacco: Former Smokeless Tobacco: Never Alcohol Use Standard Drinks/Week Comments No 0 (1 standard drink = 0.6 oz pur e alcohol) Comments No Sex and Gender Information Value Date Recorded Sex Assigned at Not on file Legal Sex Female 12:30 AM GENETIC TECHNOLOGIST Gender Identity Female 03/30/2023 12:11 PM CDT Sexual Orientation Straight 03/30/2023 12 :11 PM CDT documented as of this encounter Plan of Treatment Not on file documented as of this encounter Visit Diagnoses Not on filedocumented in this encounter Care Teams Branch Lead Relationship Specialty Start Date End Date Iban Jeffery MD [address] [place] [address] PCP - General 06/12/19 03/07/24 Higinio Barnes MD [address] [place] [address] PCP - General Family Practice 03/08/24 documented as of this encounter
--- OUTSIDE RECORDS SUMMARY | 2025-03-28 10:07 | XMS_ITS | Encounter Summary ---
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
--- OUTSIDE RECORDS SUMMARY | 2025-03-28 10:07 | XMS_ITS | Patient Health Record ---
Author Organization [facility] [employer] [facility] Address [address] [place] [address] Care Team Providers Care Storeroom Clerk Name Role Phone Higinio Barnes MD Primary Care Provider Francois Wood Unavailable [phone] Jeri Khan Unavailable [phone] Allergies Allergen (clinical drug ingredient) Drug/Non Drug [...] Oxazepam (BZO) N 0 - 300 ng/ml 7-uwvtanyxup-1,9-wbafzjii-0,3-diphenylpyrrolidine (MONICA P) N 0 - 300 ng/ml Methamphetamine (MET) N 0 - 1000 ng/ml Methylenedioxymethamphetamine (MDMA) N 0 - 500 ng/ml Morphine (MOP 300/[id number]) N 0 - 300 ng/ml Methadone (MTD) N 0 - 300 ng/ml Phencyclidine (PCP) N 0 - 25 ng/ml Nortriptyline (TCA) N 0 - 1000 ng/ml Oxycodone N 0 - 300 ng/ml x N 0 - 300 ng/ml UDT Reviewed date:02/22/2025 01:18:05 PM Interpretation: Performing Lab: Notes/Report: THC n 0 - 50 ng/ml Cocaine n 0 - 300 ng/ml Amphetamine p 0 - 1000 ng/ml Buprenorphine (BUP) n 0 - 10 ng/ml Secobarbital (Bar) n 0 - 300 ng/ml Oxazepam (BZO) n 0 - 300 ng/ml 8-cbjcchkceq-1,0-nghwgcbm-2,3-diphenylpyrrolidine (MONICA P) n 0 - 300 ng/ml Methamphetamine (MET) n 0 - 1000 ng/ml Methylenedioxymethamphetamine (MDMA) n 0 - 500 ng/ml Morphine (MOP 300/[id number]) n 0 - 300 ng/ml Methadone (MTD) n 0 - 300 ng/ml Phencyclidine (PCP) n 0 - 25 ng/ml Nortriptyline (TCA) n 0 - 1000 ng/ml Oxycodone n 0 - 300 ng/ml Reason For Referral No Information Medications Medication SIG (Take, Route, Frequency, Duration) Notes Start Date End Date Status DULoxetine HCl 60 MG Capsule Delayed Release Particles 1 capsule Oral Once a day; Duration: 90 days 02/22/2025 Active lamoTRIgine 100 MG Tablet 1 tablet Oral Once a day; Duration: 90 days 02/22/2025 Active Amphetamine-Dextroamphet ER 15 MG Capsule Extended Release 24 Hour 1 capsule in the morning Orally Once a day 02/22/2025 Active lamoTRIgine 100 MG Tablet 1 tablet Oral Once a day; Duration: 90 days [place] Amphetamine-Dextroamphet ER 15 MG Capsule Extended Release 24 Hour 1 capsule in the morning Orally Once a day; Duration: 30 days 03/13/2025 Active Forteo 600 MCG/2.4ML Solution Pen-injector as directed Subcutaneous 02/28/2024 Active buPROPion HCl ER (XL) 150 MG Tablet Extended Release 24 Hour 1 tablet in the morning Oral Once a day; Duration: 90 days 02/22/2025 Active Ibuprofen 600 MG Tablet Oral 11/17/2023 Active Famotidine 20 MG Tablet Oral 11/17/2023 Active Losartan Potassium-HCTZ 100-12.5 MG Tablet Oral 11/17/2023 Active Atorvastatin Calcium 20 MG Tablet Oral 11/17/2023 Active amLODIPine Besylate 2.5 MG Tablet Oral 11/17/2023 Active buPROPion HCl ER (XL) 150 MG Tablet Extended Release 24 Hour 1 tablet every morning Oral Once a day; Duration: 90 days Not-Taking Social History Sex Assigned At : Social History Observation Description Sex Assigned At Female Social History Additional Details Category Social Info Options Details Migrated Social History Migrated Social History Alcohol Intake: None 04/14/2018,Tobacco Years: Former smoker 06/17/2022,Smoking Status: 0 08/10/2023 Problems Problem Type SNOMED Code ICD Code Onset Dates Problem Status W/U Status Risk Notes Problem Mild recurrent major depression (05513255) Major depressive disorder, recurrent, mild (F33.0) 11/17/19 Active confirmed Problem Generalized anxiety disorder (41120879) Generalized anxiety disorder (F41.1) 11/17/19 Active confirmed Problem Attention deficit hyperactivity disorder, predominantly inattentive type (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) Attention-deficit hyperactivity disorder, predominantly inattentive type (F90.0) 11/17/19 Active confirmed Vital Signs Heart Rate 87 /min 02/22/2025 Height-cm 157.48 cm 02/22/2025 Blood pressure diastolic 76 mm Hg 02/22/2025 Weight-kg 58.6 kg 02/22/2025 Height 62.00 in 02/22/2025 Blood pressure systolic 131 mm Hg 02/22/2025 Weight 129.2 lbs 02/22/2025 BMI 23.63 kg/m2 02/22/2025 Encounters Encounter Location Date Provider Diagnosis [facility] [address] [address] 05/18/2024 Francois Lopez Generalized anxiety disorder F41.1 ; Major depressive disorder, recurrent, mild F33.0 and Attention-deficit hyperactivity disorder, predominantly inattentive type F90.0 [facility] [address] [address] 08/17/2024 Francois Lopez Benign essential HTN I10 ; Generalized anxiety disorder F41.1 ; Major depressive disorder, recurrent, mild F33.0 and Attention-deficit hyperactivity disorder, predominantly inattentive type F90.0 [facility] [address] [address] 11/23/2024 Francois Lopez Encounter for screen ing for cardiovascular disorders Z13.6 ; Negative depression screening Z13.31 ; Benign essential HTN I10 ; Generalized anxiety disorder F41.1 ; Major depressive disorder, recurrent, mild F33.0 and Attention-deficit hyperactivity disorder, predominantly inattentive type F90.0 [facility], [facility] [address] [place] [address] 02/22/2025 Francois Lopez Generalized anxiety disorder F41.1 ; Major depressive disorder, recurrent, mild F33.0 and Attention-deficit hyperactivity disorder, predominantly inattentive type F90.0 [facility], [facility] [address] [place] [address] 04/07/2024 Francois Lopez Attention-deficit hyperactivity disorder, predominantly inattentive type F90.0 [facility], [facility] [address] [place] [address] 05/09/2024 Francois Lopez Attention-deficit hyperactivity disorder, predominantly inattentive type F90.0 [facility], [facility] [address] [place] [address] 06/09/2024 Francois Lopez Attention-deficit hyperactivity disorder, predominantly inattentive type F90.0 [facility], [facility] [address] [place] [address] 07/13/2024 Jerisabrina Rothmanilla Attention-deficit hyperactivity disorder, predominantly inattentive type F90.0 [facility], [facility] [address] [place] [address] 08/14/2024 Francois Lopez Attention-deficit hyperactivity disorder, predominantly inattentive type F90.0 [facility], [facility] [address] [place] [address] 09/11/2024 Francois Lopez Attention-deficit hyperactivity disorder, predominantly inattentive type F90.0 [facility], [facility] [address] [place] [address] 10/13/2024 Francois Lopez Attention-deficit hyperactivity disorder, predominantly inattentive type F90.0 [facility], [facility] [address] [place] [address] 11/13/2024 Francois Lopez Attention-deficit hyperactivity disorder, predominantly inattentive type F90.0 [facility] [employer], [facility] [address] [place] [address] 12/11/2024 Francois Lopez Attention-deficit hyperactivity disorder, predominantly inattentive type F90.0 [facility] [employer] [facility] [address] [place] [address] 01/11/2025 Francois Lopez Attention-deficit hyperactivity disorder, predominantly inattentive type F90.0 [facility] [employer] [facility] [address] [place] [address] 02/09/2025 Francois Lopez Attention-deficit hyperactivity disorder, predominantly inattentive type F90.0 [facility] [employer] [facility] [address] [place] [address] 03/13/2025 Francois Lopez Attention-deficit hyperactivity disorder, predominantly inattentive [...] screening for cardiovascular disorders (ICD-10 - Z13.6) 12/11/2024 Attention-deficit hyperactivity disorder, predominantly inattentive type (ICD-10 - F90.0) 01/11/2025 Attention-deficit hyperactivity disorder, predominantly inattentive type (ICD-10 - F90.0) 02/09/2025 Attention-deficit hyperactivity disorder, predominantly inattentive type (ICD-10 - F90.0) 03/13/2025 Attention-deficit hyperactivity disorder, predominantly inattentive type (ICD-10 - F90.0) 02/22/2025 Generalized anxiety disorder (ICD-10 - F41.1) stable 08/17/2024 Benign essential HTN (ICD-10 - I10) 08/14/2024 Attention-deficit hyperactivity disorder, predominantly inattentive type [...] mg prescriptions . - Send refills to [facility] in [place]. 5. Follow-up: Plan: - Schedule a follow-up appointment to monitor patient's mood, anxiety, ADHD symptoms, and progress with physical injuries. - Adjust treatment plan as needed based on patient's progress and any new concerns that may arise. 08/17/2024 Generalized anxiety disorder (ICD-10 - F41.1) stable 02/22/2025 Major depressive disorder, recurrent, mild (ICD-10 - F33.0) stable cont lamotrigine 100mg 1 tablet at bedtime , duloxetine 60mg daily, bupropion xl 150mg daily Plasma concentrations and pharmacologic effects of duloxetine may be increased by strong CYP2D6 inhibitors (eg, buPROPion HCl ER (XL) Oral Tablet Extended Release 24 Hour 150 MG). 11/23/2024 Negative depression screening (ICD-10 - Z13.31) 05/18/2024 Major depressive disorder, recurrent, mild (ICD-10 [...] mg prescriptions . - Send refills to [facility] in [place]. 5. Follow-up: Plan: - Schedule a follow-up appointment to monitor patient's mood, anxiety, ADHD symptoms, and progress with physical injuries. - Adjust treatment plan as needed based on patient's progress and any new concerns that may arise. 02/22/2025 Attention-deficit hyperactivity disorder, predominantly inattentive type (ICD-10 - F90.0) Adderall xr 15mg daily 11/23/2024 Benign essential HTN (ICD-10 - I10) 05/18/2024 Attention-deficit hyperactivity disorder, predominantly inattentive type [...] mg prescriptions . - Send refills to [facility] in [place]. 5. Follow-up: Plan: - Schedule a follow-up appointment to monitor patient's mood, anxiety, ADHD symptoms, and progress with physical injuries. - Adjust treatment plan as needed based on patient's progress and any new concerns that may arise. 08/17/2024 Major depressive disorder, recurrent, mild (ICD-10 - F33.0) stable cont lamotrigine 100mg 1 tablet at bedtime , duloxetine 60mg daily, bupropion xl 150mg daily Plasma concentrations and pharmacologic effects of duloxetine may be increased by strong CYP2D6 inhibitors (eg, buPROPion HCl ER (XL) Oral Tablet Extended Release 24 Hour 150 MG). 08/17/2024 Attention-deficit hyperactivity disorder, predominantly inattentive type (ICD-10 - F90.0) Adderall xr 15mg daily 11/23/2024 Generalized anxiety disorder (ICD-10 - F41.1) [...] up in 3 months - Patient to pick up worker bupropion prescription at pharmacy the note is transcribed using speech recognition software. It is a reflection of a visit with the patient. It might have some inaccuracy, including medication names and transcribing errors, though efforts have been made to correct them. 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 Mood Disorder Assessment: Patient reports significant improvement in mood over the past few months. She denies ongoing depression, noting only occasional blue days that do not persist. Sleep is reported as good, with no issues noted. Patient feels the current medication regimen is effective, stating she feels fixed. No suicidal ideation or other concerning symptoms reported. Plan: - Continue current medication regimen: - Bupropion XL 150MG daily - Duloxetine 60 mg daily - Lamotrigine 100 mg daily - Follow up in 3 months Anxiety Disorder Assessment: Patient reports anxiety is currently manageable. She notes being able to handle upsetting situations without feeling overwhelmed, which is an improvement from previous visits. No acute anxiety symptoms or concerns reported. Plan: - Continue current medication regimen Attention Deficit Hyperactivity Disorder (ADHD) Assessment: No specific ADHD symptoms discussed during this visit. Patient is currently on medication for ADHD management. Plan: - Continue Adderall xr 15mg daily (recently filled on February 12) the note is transcribed using speech recognition software. It is a reflection of a visit with the patient. It might have some inaccuracy, including medication names and transcribing errors, though efforts have been made to correct them. Plan Of Treatment Next Appt Details Provider Name:Francois granados, 05/23/2025 11:15:00 AM, [address], [facility] [address], [place], [address], Insurance Providers Payer Name Payer Address Payer Phone Subscriber Number Group Number Insured Name Patient Relationship to Insured Coverage Start Date Coverage End Date Medicare-I l Medicare [address] [place] [phone] [id number] MEGHAN JUNG Self - patient is the insured [facility] [address] [place] [address] [id number] MEGHAN JUNG Self - patient is the insured Medical (General) History Medical History History ICD Code Problems: Attention deficit hyperactivit y disorder Attention deficit hyperactivity disorder , predominantly inattentive type Generalized anxiety disorder Long-term current use of drug therapy Long-term drug therapy Mild recurrent major depression , Surgical History Surgery Date(Month/Year) Other
--- OUTSIDE RECORDS SUMMARY | 2025-03-28 10:07 | XMS_ITS | Encounter Summary ---
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
--- OUTSIDE RECORDS SUMMARY | 2025-03-28 10:07 | XMS_ITS | Encounter Summary ---
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
[2025-03-28 10:33] LABS: Anion Gap 7 mmol/L (4-12); Blood Urea Nitrogen 18 mg/dL (7-17); Calcium 9.7 mg/dL (8.4-10.2); Carbon Dioxide 29 mmol/L (22-30); Chloride 101 mmol/L (98-107); Estimated Glomerular Filt Rate 58; Glucose 85 mg/dL (65-110); Potassium 3.5 mmol/L (3.4-5.0); Sodium 137 mmol/L (137-145)
== END 2025-03-28 09:22 | disposition home or self-care (01) ==
PROVIDERS: Anesthesiology; PCP Family Medicine; Visit Provider Obstetrics & Gynecology
DX: I10 Essential (primary) hypertension (principal)
CPT/HCPCS: 36415; 80048

== ENCOUNTER 2025-04-02 00:38 | Day surgery (SDC) | payer MEDICARE, SELFPAY ==
--- OUTSIDE RECORDS SUMMARY | 2007-09-23 09:26 | XMS_ITS | Continuity of Care Document ---
Author Organization [facility] Address [address] [place] [address] [address] [place] [address] Phone Care Team Providers Care Electronic Maintenance Supervisor Name Role Phone Vazquez OD, Erickson Unavailable Unavailable Procedures Procedure Date Eye Exam & Treatment Refraction Advance Directives Directive Yes / No Effective Date File Name No Information Encounters Encounter Description Practice Location Reason(s) For Visit Diagnoses Date Provider Providers Copied on Encounter [facility], [address] [place] [address] [address], [place], [place], [id number], [place] tel:[phone] [facility] No Information Sep- 1-200 8 Vazquez OD Erickson. [address] , [address], [place], [address], [place]. tel:[phone] Family History Family Member Type Diagnosis Age At Onset No Information Payers Payer name Insurance type Covered libertarian ID Authoriza tion(s) No Information Social History Type Description Quantity Date Captured Comments Sex Female Smoking Status No Information Chief Complaint And Reason For Visit No Information Reason For Referral Reason For Referral No Information History Of Present Illness Encounter Date Complaint History Of Prese nt Illness No Information Functional Status Date Functional Assessmen t No Information Instructions Date Instruction Additional Infor mation No Information Assessments Type Assessment Date No Information Patient Care Teams Name Effective Dates (start - stop) Status Members No Information
--- NOTE | 2025-03-23 15:32 | PC.NURSE ---
[facility] has started construction of its new state of the art ER which will open Spring 2026. With this, we anticipate parking may be a challenge for some our surgical patients and families. Parking spaces are limited but are available for all Surgical, obstetrics, and ER patients sharing this lot. If you arrive and find you are having a hard time finding a parking space, please note that we understand the challenges, please drive around the hospital and park near Hospital Entrance 1. When you enter this entrance, you can ask a volunteer to direct or take you back to the surgical waiting area to check in. We appreciate everyone?s understanding of these expected challenges while we build for your future. Report to the Outpatient Waiting Room, entrance under the green pavilion located off [address], at time _10 am on date __04/02/25 . Planned Procedure Time: __1200 noon .? Time changes happen often and if your time is changed the preop area will call you the afternoon before. - You and your visitor will be asked to self-screen and do not enter if you have any COVID symptoms. Please call surgeon if you need to reschedule. - A mask is optional within the hospital at this time. Patients may have clear liquids (water, carbonated beverages, clear teas, apple juice) until 3 hours prior to surgery( 9 am) with a maximum of 20 ounces. - No food from midnight until time of surgery and no smoking, or chewing tobacco (or any form of nicotine). No chewing gum, candy or mints. - Take only the following medications with a SIP of water on the morning of surgery: AMLODIPINE,BUPROPION,,DULOXETINE DO NOT STOP ANY OF YOUR OTHER PRESCRIPTION MEDICATIONS PRIOR TO SURGERY EXCEPT THE FOLLOWING Hold all vitamins and supplements for 3 days per anesthesiologist.LAST DOSE 03/29/25 Medications to discontinue per physician NONE Date to take last dose Please no make-up, nail divehi, hairspray, perfume, deodorant, or body powder the day of surgery.? No jewelry (including any body piercings) or valuables the day of surgery, leave them at home.? Please take a shower or bath the night before, or the morning of, surgery with an antibacterial soap.? Wear comfortable, loose fitting clothing.? Children are encouraged to wear pajamas. - Jewelry must be removed prior to entering the operating room.? Rings and piercings that are not removed may be cut off. - The hospital will not accept responsibility for valuables.? - Please leave all valuables, including medications, at home the day of surgery. If you are going home after surgery, a licensed set key driver must drive you home.? - NO public transportation without another adult if you receive anesthesia. - We recommend that an adult stay with you for 24 hours following discharge. - We also recommend that you do not drive, make important decision, drink alcoholic beverages, or take any drugs that were not prescribed by your health care provider for at least 24 hours after your discharge time. For Pediatric surgeries, we recommend two adults accompany the child home. Follow any additional instructions given to you from your surgeon. Telephone instructions given to __patient and asked if any additional questions and then verbalized understanding. Patient advised to call surgeon office or pre surgery nurse liaison [phone] if any additional questions.
[2025-03-23 15:50] VITALS: BMI 23.4
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
--- OUTSIDE RECORDS SUMMARY | 2025-04-02 00:40 | XMS_ITS | Encounter Summary ---
Author Organization 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
--- OUTSIDE RECORDS SUMMARY | 2025-04-02 00:40 | XMS_ITS | Encounter Summary ---
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
--- OUTSIDE RECORDS SUMMARY | 2025-04-02 00:40 | XMS_ITS | Clinical Summary ---
Author Organization [facility] Address [address] [facility] Attn: Teresita Prelusera [place] [address] Care Team Providers Care Trim Machine Adjuster Name Role Phone Unavailable Primary Care Provider [...] daily. 30 Tablet 3 2 11:59 AM ROD POINTER 12/11/19 22 Active buPROPion HCL (WELLBUTRIN XL) [...] daily. 90 Tablet 1 2 12:11 PM ROD POINTER 10/03/19 22 Active buPROPion HCL (WELLBUTRIN XL) 150 mg Extended Release 24 hour tablet Take 1 Tablet (150 mg) by mouth daily in the morning. 30 Tablet 3 3 2:43 PM CDT 06/17/20 22 Active DULoxetine (CYMBALTA) 60 mg Capsule, Delayed Release(E.C.) Take 1 Capsule (60 mg) by mouth daily. 30 Capsule 3 3 12:21 PM ROD POINTER 06/17/20 22 Active lamoTRIgine (LaMICtal) 100 mg tablet Take 1 Tablet (100 mg) by mouth daily. 30 Tablet 3 3 3:31 PM ROD POINTER 06/17/20 22 Active amphetamine-d extroamphetam ine (ADDERALL XR) 15 mg Extended Release 24 hour capsule Take 1 Capsule (15 mg) by mouth daily in the morning. 30 Capsule 08/17/19 23 Active methylphenida te HCl (Concerta) 18 mg Extended Release tablet Take 1 Tablet (18 mg) by mouth daily in the morning. Max Daily Amount: 18 mg 30 Tablet 3 12:40 PM ROD POINTER 08/21/19 23 Active amLODIPine (NORVASC) 2.5 mg [...] DAILY 90 Tablet 1 4 2:57 PM ROD POINTER 01/23/20 23 Active cyclobenzapri ne (FLEXERIL) 10 [...] daily. 90 Tablet 1 4 9:27 AM ROD POINTER 04/05/20 23 Active atorvastatin (LIPITOR) 20 mg tablet TAKE ONE TABLET BY MOUTH ONCE DAILY 90 Tablet 1 4 9:27 AM ROD POINTER 04/05/20 23 Active DULoxetine (CYMBALTA) 60 mg Capsule, Delayed Release(E.C.) Take 1 Capsule (60 mg) by mouth daily. 90 Capsule 1 4 2:15 PM ROD POINTER 04/29/20 23 Active ibuprofen (MOTRIN) 600 mg tablet Take 1 Tablet (600 mg) by mouth 3 times daily as needed for pain. TAKE WITH FOOD 90 Tablet 1 4 2:45 PM ROD POINTER 05/04/20 23 Active buPROPion HCL (WELLBUTRIN XL) 150 mg Extended Release 24 hour tablet Take 1 Tablet (150 mg) by mouth daily in the morning. 30 Tablet 3 4 9:27 AM ROD POINTER 05/06/20 23 Active lamoTRIgine (LaMICtal) 100 mg tablet Take 1 Tablet (100 mg) by mouth daily. 30 Tablet 3 4 2:57 PM ROD POINTER 06/09/20 23 Active buPROPion HCL (WELLBUTRIN XL) [...] daily. 90 Tablet 1 5 12:25 PM [facility] 05/18/20 24 Active buPROPion HCL (WELLBUTRIN XL) [...] 90 Tablet 1 5 6:06 PM CDT 11/16/19 25 Active sodium phosphates 19-7 gram/118 mL Enema 197 mL rectally once 266 mL 12/18/19 25 Active magnesium CITRATE solution 300 mL orally daily As Needed for constipation 296 mL 12/18/19 25 Active Insulin [place], Disposable, (Pen Needle) 31 gauge x 16 Needle Use with injectable as directed. 100 [...] 5 2:07 PM CDT 03/20/20 25 Active linaCLOtide (Linzess) 145 mcg capsule Take one capsule (145 mcg) orally daily 90 Capsule 03/29/20 25 Active polyethylene glycol 3350 (MIRALAX) 17 gram/dose Powder Mix and drink 17 g orally daily 850 Gram 1 03/29/20 25 Active amLODIPine (NORVASC) 2.5 mg tablet [...]
--- OUTSIDE RECORDS SUMMARY | 2025-04-02 00:41 | XMS_ITS | Encounter Summary ---
Author Organization 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
--- OUTSIDE RECORDS SUMMARY | 2025-04-02 00:41 | XMS_ITS | Encounter Summary ---
Author Organization [facility] Healthcare Address [address] [place] [address] Care Team Providers Care Reel Assembler Name Role Phone Iban Jeffery MD Primary Care Provider [phone] Higinio Barnes MD Primary Care Provider [phone] Encounter Details Date Type Department Care Team (Late st Contact Info) Description 03/24/2022 Telephone [facility] Radiology [address] [place] [address] René Mcmullen MD [address] [facility] [address] [place] [address] Social History Tobacco Use Types Packs/Day Years Used Date Smoking Tobacco: Former Smokeless Tobacco: Never Alcohol Use Standard Drinks/Week Comments No 0 (1 standard drink = 0.6 oz pur e alcohol) Comments No Sex and Gender Information Value Date Recorded Sex Assigned at Not on file 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
--- OUTSIDE RECORDS SUMMARY | 2025-04-02 00:41 | XMS_ITS | Clinical Summary ---
Author Organization [facility] Healthcare Address [address] [place] [address] Care Team Providers Care Telephone Interviewer Name Role Phone Higinio Barnes MD Primary Care Provider [phone] Allergies Active Allergy Reactions Criticality Noted Date [...] headache - (Added by TW Conv) Other custodial (current) drug therapy Encounter for long-term (current) [...] on file Legal Sex Female 12:30 AM REED PRESS FEEDER Gender Identity Female 03/30/2023 12:11 PM CDT [...] 56.7 kg (125 lb) 05/11/2024 4:40 PM REED PRESS FEEDER Height 157.5 cm (5' 2) 05/11/2024 4:40 PM REED PRESS FEEDER Body Mass Index 22.86 05/11/2024 4:40 PM REED PRESS FEEDER Plan of Treatment Health Maintenance Due Date [...] Discontinued 07/05/2014 Medical Devices Implanted Type Area Agricultural Chemicals Inspector Device Identifier Shelf Expiration Date Model / [...] Read Routine (OP Routine) 06/23/2021 8:51 AM REED PRESS FEEDER Encounter for screening mammogram for malignant neoplasm [...] Bone mineral density was performed on a HoloGenapsys Discovery Densitometer. Based on machine cross-calibration and [...] by the International Society of Clinical Densitometry. [id number] us Rock Neely MD IMG DXA PROCEDURES Final Resul t * Screening Mammogram Bilateral W Nuno (06/23/2021 8:51 AM REED PRESS FEEDER) Anatomical Region Laterality Modality Breast Bilateral Mammography Narrative 06/24/2021 7:45 AM REED PRESS FEEDER Mammogram Technique: Bilateral Digital Breast Tomosynthesis, Bilateral C-view 2D Screening mammogram. Views obtained: bilateral craniocaudal and bilateral mediolateral oblique. Computer Aided Detection was performed. Mammogram Findings: The present examination has been compared to prior imaging studies performed at [facility] on 06/20/2018, and at [facility] on 06/20/2019 and 06/21/2020. The breasts [...] compared to prior imaging studies performed at [facility] on 06/20/2018, and at [facility] on 06/20/2019 and 06/21/2020. The breasts [...] Recently Relevant to Health Maintenance Insurance MEDICARE [facility] MEDICARE SUPPLEMENT MEDICARE [facility] [employer] [facility] Address: [address] [place] [address] [facility] MEDICARE SUPPLEMENT Care Teams Telephone Interviewer Relationship Specialty Start Date End Date Higinio Barnes MD PCP - General Family Practice 03/08/24
--- OUTSIDE RECORDS SUMMARY | 2025-04-02 00:41 | XMS_ITS | Patient Health Record ---
Author Organization [facility] [employer] [facility] Address [address] [place] [address] Care Team Providers Care Product Safety Administrator Name Role Phone Higinio Barnes MD Primary Care Provider Francois Wood Unavailable [phone] Jeri Khan Unavailable [phone] Allergies Allergen (clinical drug ingredient) Drug/Non Drug [...] Oxazepam (BZO) N 0 - 300 ng/ml 8-huohornsmx-6,8-metztgxv-6,3-diphenylpyrrolidine (MONICA P) N 0 - 300 ng/ml Methamphetamine (MET) N 0 - 1000 ng/ml Methylenedioxymethamphetamine (MDMA) N 0 - 500 ng/ml Morphine (MOP 300/[id number]) N 0 - 300 ng/ml Methadone (MTD) [...] Oxazepam (BZO) n 0 - 300 ng/ml 2-avkjnegqou-4,9-hbjsuvlv-8,3-diphenylpyrrolidine (MONICA P) n 0 - 300 ng/ml Methamphetamine (MET) n 0 - 1000 ng/ml Methylenedioxymethamphetamine (MDMA) n 0 - 500 ng/ml Morphine (MOP 300/[id number]) n 0 - 300 ng/ml Methadone (MTD) [...] Risk Notes Problem Mild recurrent major depression (39552932) Major depressive disorder, recurrent, mild (F33.0) 11/17/19 Active confirmed Problem Generalized anxiety disorder (88015926) Generalized anxiety disorder (F41.1) 11/17/19 Active confirmed Problem Attention deficit hyperactivity disorder, predominantly inattentive type (38515583) Attention-deficit hyperactivity disorder, predominantly inattentive type (F90.0) 11/17/19 Active confirmed Vital Signs Heart Rate 87 /min 02/22/2025 Height-cm 157.48 cm 02/22/2025 Blood pressure diastolic 76 mm Hg 02/22/2025 Weight-kg 58.6 kg 02/22/2025 Height 62.00 in 02/22/2025 Blood pressure systolic 131 mm Hg 02/22/2025 Weight 129.2 lbs 02/22/2025 BMI 23.63 kg/m2 02/22/2025 Encounters Encounter Location Date Provider Diagnosis [facility] [address] [address] 05/18/2024 Francois Lopez Generalized anxiety disorder F41.1 ; Major depressive disorder, recurrent, mild F33.0 and Attention-deficit hyperactivity disorder, predominantly inattentive type F90.0 [facility] [address] [address] 08/17/2024 Francois Lopez Benign essential HTN I10 ; Generalized anxiety disorder F41.1 ; Major depressive disorder, recurrent, mild F33.0 and Attention-deficit hyperactivity disorder, predominantly inattentive type F90.0 [facility] [address] [address] 11/23/2024 Francois Lopez Encounter for screen ing for cardiovascular disorders Z13.6 ; Negative depression screening Z13.31 ; Benign essential HTN I10 ; Generalized anxiety disorder F41.1 ; Major depressive disorder, recurrent, mild F33.0 and Attention-deficit hyperactivity disorder, predominantly inattentive type F90.0 [facility], [facility] [address] [place] [address] 02/22/2025 Francios Lopez Generalized anxiety disorder F41.1 ; Major depressive disorder, recurrent, mild F33.0 and Attention-deficit hyperactivity disorder, predominantly inattentive type F90.0 [facility], [facility] [address] [place] [address] 04/07/2024 Francois Lopez Attention-deficit hyperactivity disorder, predominantly inattentive type F90.0 [facility], [facility] [address] [place] [address] 05/09/2024 Francois Lopez Attention-deficit hyperactivity disorder, predominantly inattentive type F90.0 [facility], [facility] [address] [place] [address] 06/09/2024 Francois Lopez Attention-deficit hyperactivity disorder, predominantly inattentive type F90.0 [facility], [facility] [address] [place] [address] 07/13/2024 Jerisabrina Rothmanilla Attention-deficit hyperactivity disorder, predominantly inattentive type F90.0 [facility], [facility] [address] [place] [address] 08/14/2024 Francois Lopez Attention-deficit hyperactivity disorder, predominantly inattentive type F90.0 [facility], [facility] [address] [place] [address] 09/11/2024 Francois Lopez Attention-deficit hyperactivity disorder, predominantly inattentive type F90.0 [facility], [facility] [address] [place] [address] 10/13/2024 Francois Lopez Attention-deficit hyperactivity disorder, predominantly inattentive type F90.0 [facility], [facility] [address] [place] [address] 11/13/2024 Francois Lopez Attention-deficit hyperactivity disorder, predominantly inattentive type F90.0 [facility] [email or web address], [facility] [address] [place] [address] 12/11/2024 Francois Lopez Attention-deficit hyperactivity disorder, predominantly inattentive type F90.0 [facility] [employer] [facility] [address] [place] [address] 01/11/2025 Francois Lopez Attention-deficit hyperactivity disorder, predominantly inattentive type F90.0 [facility] [employer] [facility] [address] [place] [address] 02/09/2025 Francois Lopez Attention-deficit hyperactivity disorder, predominantly inattentive type F90.0 [facility] [employer] [facility] [address] [place] [address] 03/13/2025 Francois Lopez Attention-deficit hyperactivity disorder, predominantly [...] mg prescriptions . - Send refills to [facility] in [place]. 5. Follow-up: Plan: - Schedule a follow-up [...] Generalized anxiety disorder (ICD-10 - F41.1) stable 03/13/2025 Attention-deficit hyperactivity disorder, predominantly inattentive type (ICD-10 - F90.0) 11/23/2024 Negative depression screening (ICD-10 - Z13.31) 02/22/2025 Major depressive disorder, recurrent, mild (ICD-10 - F33.0) stable cont lamotrigine 100mg 1 tablet at bedtime , duloxetine 60mg daily, bupropion xl 150mg daily Plasma concentrations and pharmacologic effects of duloxetine may be increased by strong CYP2D6 inhibitors (eg, buPROPion HCl ER (XL) Oral Tablet Extended Release 24 Hour 150 MG). 08/17/2024 Generalized anxiety disorder (ICD-10 - F41.1) [...] mg prescriptions . - Send refills to [facility] in [place]. 5. Follow-up: Plan: - Schedule a follow-up [...] mg prescriptions . - Send refills to [facility] in [place]. 5. Follow-up: Plan: - Schedule a follow-up appointment to monitor patient's mood, anxiety, ADHD symptoms, and progress with physical injuries. - Adjust treatment plan as needed based on patient's progress and any new concerns that may arise. 11/23/2024 Benign essential HTN (ICD-10 - I10) 02/22/2025 Attention-deficit hyperactivity disorder, predominantly inattentive type [...] in 3 months - Patient to pick pulling machine tender bupropion prescription at pharmacy the note is [...] Details Provider Name:Francois granados, 05/23/2025 11:15:00 AM, [address] [address] [address], [facility] [address], [address], Insurance Providers Payer Name Payer Address Payer Phone Subscriber Number Group Number Insured Name Patient Relationship to Insured Coverage Start Date Coverage End Date Medicare-I l Medicare [address] [place] [phone] [id number] MEGHAN JUNG Self - patient is the insured [facility] Ppo [address] [place] [address] [id number] MEGHAN JUNG Self - patient is the insured Medical (General) History Medical History History ICD Code Problems: Attention deficit hyperactivit y disorder Attention deficit hyperactivity disorder , predominantly inattentive type Generalized anxiety disorder Long-term current use of drug therapy Long-term drug therapy Mild recurrent major depression , Surgical History Surgery Date(Month/Year) Other
--- NOTE | 2025-04-02 07:09 | WPDHPUPDATE1 ---
History and Physical Update Update Date/Time: 04/02/25 07:09 History and Physical has been reviewed, including an updated exam of the patient. There are NO changes in the patient's condition. Risks, benefits, and alternatives have been discussed and questions answered. Patient agrees to proceed with hysteroscopy with D&C.
[2025-04-02 09:59] VITALS: BP 120/61; PULSE 79; RESP 16; TEMP 37.2; O2SAT 100
[2025-04-02] MEDS: ACETAMINOPHEN 500 MG TABLET 1000 MG PO (10:23)
--- NOTE | 2025-04-02 10:29 | WPDANESEPPF ---
Anes - Initial Pre Proc Eval Procedure: Operation Date: 04/02/25 12:00 Proposed Procedures p Hysteroscopy Dilation and Curettage - Esther Wilkerson MD Date/Time: 04/02/25 10:29 Surgeon: Esther Wilkerson MD Pre Op Diagnosis: Endometrial Hyperplasia Patient Data Age: 69 Gender: F Height: 1.57 m Weight: 58.1 kg Allergies Allergy/AdvReac Type Severity Reaction Status Date / Time Penicillins Allergy Unknown Hives Verified 04/02/25 10:02 Home Medications ?Medication ?Instructions ?Recorded ?Confirmed ?Type lamotrigine 100 mg tablet 100 mg PO DAILY 06/21/19 04/02/25 History multivitamin (Daily Multi-Vitamin 1 tablet PO DAILY 11/24/19 04/02/25 History tablet) dextroamphetamine-amphetamine ER 15 mg PO DAILY 01/04/23 04/02/25 History 15 mg 24hr capsule,extend release duloxetine 60 mg capsule,delayed 60 mg PO DAILY #90 caps 04/29/23 04/02/25 Rx release ibuprofen 600 mg tablet 600 mg PO TID PRN pain #90 tabs 11/23/23 03/23/25 Rx teriparatide 20 mcg/dose (560 20 mcg subcut DAILY 12/17/23 04/02/25 History mcg/2.24 mL) subcutaneous pen injector (Forteo) bupropion HCl 150 mg 24 hr tablet, 150 mg PO QAM 09/06/24 04/02/25 History extended release magnesium citrate 300 ml PO DAILY PRN constipation 12/17/24 04/02/25 Rx #296 mL pen needle, diabetic 31 gauge x #100 ea 01/17/25 02/21/25 Rx 3/16 (Comfort EZ Pen Roland) estradiol 0.01% (0.1 mg/gram) 1 g vaginal 2XW #42.5 grams 02/21/25 03/23/25 Rx vaginal cream amlodipine 2.5 mg tablet 2.5 mg PO DAILY #90 tabs 03/19/25 04/02/25 Rx atorvastatin 20 mg tablet See Rx Instructions .Route 03/19/25 04/02/25 Rx .COMPLEX #90 tabs losartan 100 See Rx Instructions .Route 03/19/25 04/02/25 Rx mg-hydrochlorothiazide 12.5 mg .COMPLEX #90 tabs tablet famotidine 20 mg tablet See Rx Instructions .Route 03/20/25 04/02/25 Rx .COMPLEX #180 tabs linaclotide 145 mcg capsule 145 mcg PO DAILY #90 caps 03/29/25 04/02/25 Rx (Linzess) polyethylene glycol 3350 17 17 g PO BID #238 grams 03/29/25 04/02/25 Rx gram/dose oral powder (Miralax) polyethylene glycol 3350 17 17 g PO DAILY #850 grams 03/29/25 04/02/25 Rx gram/dose oral powder (Miralax) Patient hx anesthesia problems: none Family hx anesthesia problems: none Results Review: All pre-operative results and documents have been reviewed as part of the pre-operative evaluation. [facility] Past Medical History Medical History Back fracture Cubital tunnel syndrome on left Adult idiopathic generalized osteoporosis Multiple sclerosis Attention-deficit hyperactivity disorder, unspecified type Depression Essential (primary) hypertension Mixed hyperlipidemia Surgical History Surgical History History of colonoscopy History of throat surgery removal of polyp H/O breast biopsy History of bunionectomy Family History Family History Father Hypertension Sibling Family history of lupus erythematosus Family history of malignant neoplasm of breast in first degree relative Mother Family history of mental disorder Patient's mother is in good health Other Family history of elevated blood lipids Family history of multiple sclerosis Social History Social History Smoking packs per day: 1 Smoking cigarettes per day: 20.0 Years smoked: 12 Smoking pack-years: 12.00 Smoking status: Former smoker Tobacco type: cigarettes Second hand tobacco smoke exposure: No Smoking end date: 07/05/87 Alcohol intake: never Substance use: former Substance use type: marijuana Other substance usage details: had to stop in order to get Adderall Last use: end january Current Housing: Decline to Answer Concerned About Future Housing: Decline to Answer Difficulty Paying Gas/Electric Bills: Decline to Answer Difficulty Paying for Meds: Decline to Answer Currently Unemployed: Decline to Answer Education: Decline to Answer Difficulty w/ Childcare or Family Care: Decline to Answer Living arrangements: with family Additional living arrangements comments: Occupation/Education: retired Gender identity (if verbalized by the patient): Female Sexual Orientation (if Verbalized by the Patient): Straight or Heterosexual Spiritual care concerns: No Anes - Eval Final PreProcedure Day of Procedure 04/02/25 10:29 Patient weight: normal Heart: regular rate and rhythm Lungs: clear to auscultation Airway: Mallampati scale class II Neurological: alert and oriented Last oral intake: >/= 8 hours ASA classification: III Emergent: no Anesthetic plan: proceed Anesthesia type and monitoring: general GIVS and standard monitoring Results Review: All pre-operative results and documents have been reviewed as part of the pre-operative evaluation. Informed Consent: The patient's anesthetic plan and its attendant risks and benefits were discussed with the patient/family/POA. Questions were solicited and answers provided to the satisfaction of the patient/family/POA.
[2025-04-02] MEDS: LACTATED RINGERS 1,000 ML 30 ML IV CONT (10:30)
--- NOTE | 2025-04-02 12:13 | S_PTH ---
PATIENT: Meena Klein LOC: [facility] U#:[id number] AGE/SX: 69/F ROOM: RE04/02/[address]: Esther Wilkerson MD : [id number] BED: DIS: 04/02/2025 SPEC #: [id number] RECD: 04/02/25 13:21 STATUS: SHELDON REQ #: [id number] LIZETTE: 04/02/25 12:[address]: Esther Wilkerson DEPT: [facility] Surgical RECD BY: Sofi Venegas ENTERED: 04/02/25 13:22 SP TYPE: Surgical OTHR DR: Higinio Barnes MD Tissues: A - Polyp Procedures: Hematoxylin and Eosin Stain Gross and Microscopic Level 4
[2025-04-02 12:21] VITALS: BP 177/80; PULSE 87; RESP 14; O2SAT 100
--- NOTE | 2025-04-02 12:24 | W.PM.PROC2 ---
Procedure Note - Detailed Date of Procedure 04/02/25 Pre-op Diagnosis Endometrial thickening on US Post-op Diagnosis Other (endometrial polyp) Procedure Performed Operative Hysteroscopy with Polypectomy Surgeon Esther Wilkerson MD Anesthesia MAC Findings Cervix very scarred and stenotic; operative hysteroscopy performed to get through cervical adhesions. Endometrial polyp/mass noted from posterior uterine wall and possible calcifications noted in the right cornua also sampled using the [employer] tissue shaver. Bilateral tubal ostia visualized. Good hemostasis at end of case. Fluid deficit: 30cc Description of Procedure Meena was taken to the operating room where she was placed under sedation without complications. She was then prepped and draped in the usual sterile fashion in the dorsal lithotomy position with her legs in low Benny stirrups. A time-out was performed and no perioperative antibiotics were indicated. A bivalve speculum was placed within the vagina where the cervix was easily identified. The anterior lip of the cervix was grasped with a single-tooth tenaculum. The uterus was attempted to be sounded, but the internal os of the cervix was stenotic. The external cervical os was then serially dilated to allow for the hysteroscope. The hysteroscope was advanced into the cervix. Using os finders and hysteroscopic scissors, the adhesions were slowly and carefully taken down. The uterine cavity was then entered with with the above findings noted. Using the [employer] tissue shaver, the polyp/masses were removed and the whole uterine cavity was sampled. Good hemostasis was noted. All instruments were removed from the vagina. Sponge, lap, instrument, and needle counts were correct at the end of the procedure. Patient was awoken from anesthesia and taken to recovery with plans of same-day discharge home. Estimated Blood Loss 5 IV Fluids 900 Pathology Yes (endometrial polyp with shavings) Complications No immediate complications Condition Stable Disposition Same day [facility] Billing Surgery - Charge Forward: Surgery Billing
[2025-04-02 12:50] VITALS: BP 143/80; PULSE 80; RESP 14; O2SAT 97
[2025-04-02 13:20] VITALS: BP 129/69; PULSE 72; O2SAT 97
[2025-04-02 13:50] VITALS: BP 126/71; PULSE 75
== END 2025-04-02 14:05 | disposition home or self-care (01) ==
PROVIDERS: PCP Family Medicine; Visit Provider Obstetrics & Gynecology
PROC: 0U5B8ZZ Destruction of Endometrium, Via Natural or Artificial Opening Endoscopic (ICD-10-PCS; CPT 58563; principal; 2025-04-02 12:00)
DX: R93.89 Abnormal findings on diagnostic imaging of other specified body structures (principal); N84.0 Polyp of corpus uteri; N88.2 Stricture and stenosis of cervix uteri; I10 Essential (primary) hypertension; E78.2 Mixed hyperlipidemia; G35 Multiple sclerosis; F32.A Depression, unspecified; M81.8 Other osteoporosis without current pathological fracture; F90.9 Attention-deficit hyperactivity disorder, unspecified type; Z79.1 Long term (current) use of non-steroidal anti-inflammatories (NSAID); Z79.85 Long-term (current) use of injectable non-insulin antidiabetic drugs; Z98.890 Other specified postprocedural states; Z87.891 Personal history of nicotine dependence; Z80.3 Family history of malignant neoplasm of breast
CPT/HCPCS: 58558; 88305; A9270; J2003; J2250; J2704; J3010; J7120